=== PATIENT | female | born 1960 | race Caucasian/White ===

== ENCOUNTER 2016-11-04 16:46 | Emergency (ER) | payer OTHER ==
[~2016-11-04] VITALS: Ht 157.4 cm; Wt 119.7 kg
[~2016-11-04 16:46] MED LIST: ACETAMINOPHEN PO; ACTEMRA20 MG/ML IV; ADVAIR 100/501 E1 INH; ADVAIR 250/501 EA INH; ADVAIR 500/501 E1 INH; AFRIN SINUS 1515 ML NS; ALBUTEROL2.5 MG/0.5 INH; ALPRAZOLAM2 MG PO; AMOXICILLIN500 MG PO; ASPIRIN FOR CHI81 MG PO; ASPIRIN LOW DOS81 MG PO; ATARAX25 MG PO; AVELOX400 MG PO; BACTRIM DS 8001 TA1 PO; BENADRYL25 MG PO; BUPROPION HCL75 MG PO; CARAFATE1 G1 PO; CEFTIN250 MG PO; CLARITIN10 MG PO; CLEOCIN150 MG PO; COMBIVENT RESPIM4 GM INH; COMBIVENT1 ARO IH; Carafate1 GM PO; DELTASONE20 MG PO; DIAZEPAM10 MG PO; DILAUDID4 MG PO; DUONEB 3 MG/3 ML3 M1 INH; FLAGYL250 MG PO; FLEXERIL10 MG PO; FLUTICASON0.05 MG/A1 NAS; FOLIC ACID1 MG PO; FUROSEMIDE10 MG/ML PO; FUROSEMIDE20 MG PO; HUMIRA40 MG/0.1 SC; HYDROCODONE BIT1 T11 PO; HYDROCODONE PO; HYDROMORPHONE HY4 MG PO; K-Dur 20MEQ20 MEQ PO; KEFLEX500 MG PO; LASIX20 MG PO; LASIX40 MG PO; LIDEX 0.05% CRE15 GM T; MEDROL DOSEPAK4 MG PO; MELOXICAM15 MG PO; METFORMIN HYDR500 M1 PO; METFORMIN500 MG PO; METHOTREXATE2.5 M1 PO; MOTRIN600 MG PO; MOTRIN800 MG PO; MYCELEX TROCHE10 MG PO; NASACORT55 MCG/ACT NS; NATURE'S BLEND F1 MG PO; NEXIUM40 MG PO; NICODERM21 MG/24 H TD; NO MED LIST; OMEPRAZOLE40 MG PO; ORENCIA250 MG IV; POTASSIUM CHLO20 ME1 PO; POTASSIUM CHLO20 ME4 PO; PREDNICOT20 MG PO; PREDNISONE10 MG PO; PREDNISONE20 MG PO; PRILOSEC20 MG PO; PRISTIQ100 MG PO; PROTONIX40 MG PO; REQUIP0.5 MG PO; ROCEPHIN1 GM/50 M1 IV; SEPTRA DS 800 M1 TAB PO; SINGULAIR10 MG PO; TOBRADEX 0.1%-0.5 ML OPH; TOPAMAX15 MG PO; TOPAMAX25 MG PO; TOPIRAMATE100 MG PO; TRAMADOL HCL50 MG PO; ULTRAM50 MG PO; VALIUM10 MG PO; VALIUM2 MG PO; VENTOLIN 02.5 MG/3 M INH; VIBRAMYCIN100 MG PO; VICO75300 PO; VICODIN 500 MG-1 TAB PO; VOLTAREN50 M1 PO; WELLBUTRIN75 MG PO; X; XANAX0.5 MG PO; XELJANZ5 M1 PO; ZANTAC 150150 MG PO; ZANTAC150 MG PO; ZITHROMAX Z PA250 MG PO; ZITHROMAX250 MG PO; ZOCOR20 MG PO; ZOCOR5 MG PO
[2016-11-04] MEDS ORDERED: BACTRIM DS 8001 TA1 PO (18:12)
[2016-12-06] MEDS ORDERED: PROTONIX40 MG PO (22:14)
[2016-12-06] MEDS ORDERED: VICODIN HP 10-1 EACH PO (22:43)
[2016-12-06] MEDS ORDERED: REQUIP0.5 MG PO (23:44)
[2016-12-07] MEDS ORDERED: VITAMIN D5000 UNIT PO (12:11)
[2016-12-07] MEDS ORDERED: VITAMIN B125000 MC1 PO (12:11)
[2016-12-07] MEDS ORDERED: LISINOPRIL10 M1 PO (12:11)
== END 2016-11-04 18:19 | disposition home or self-care (01) ==
LOC: ED 16:46
DX: L24.5 Irritant contact dermatitis due to other chemical products (principal); I99.8 Other disorder of circulatory system; K21.9 Gastro-esophageal reflux disease without esophagitis; Z91.041 Radiographic dye allergy status; Z88.1 Allergy status to other antibiotic agents; Z88.8 Allergy status to other drugs, medicaments and biological substances; Z88.6 Allergy status to analgesic agent; Z79.899 Other long term (current) drug therapy

== ENCOUNTER 2017-01-15 17:53 | Emergency (ER) | payer OTHER ==
[~2017-01-15] VITALS: Wt 113.4 kg
[~2017-01-15 17:53] MED LIST changes: +LISINOPRIL10 M1 PO; +VICODIN HP 10-1 EACH PO; +VITAMIN B125000 MC1 PO; +VITAMIN D5000 UNIT PO
[2017-01-15] MEDS ORDERED: MEDROL DOSEPAK4 MG PO (20:41)
[2017-01-15] MEDS ORDERED: HYDROCODONE BIT1 T11 PO (20:41)
== END 2017-01-15 21:00 | disposition home or self-care (01) ==
LOC: ED 17:53
DX: M25.512 Pain in left shoulder (principal); Z87.891 Personal history of nicotine dependence; Z90.49 Acquired absence of other specified parts of digestive tract; Z88.1 Allergy status to other antibiotic agents; Z88.6 Allergy status to analgesic agent; Z88.8 Allergy status to other drugs, medicaments and biological substances; Z79.899 Other long term (current) drug therapy

== ENCOUNTER → 2017-05-19 | Outpatient (CLI) | payer OTHER | END | disposition home or self-care (01) | LOC: MAMMO 11:58 | DX: Z12.31 Encounter for screening mammogram for malignant neoplasm of breast (principal) ==

== ENCOUNTER 2017-06-08 10:46 | Emergency (ER) | payer OTHER ==
[~2017-06-08] VITALS: Ht 157.4 cm; Wt 113.4 kg
[2017-06-08] MEDS ORDERED: NYSTATIN CREAM15 GM T (11:20)
== END 2017-06-08 11:37 | disposition home or self-care (01) ==
LOC: ED 10:46
DX: L30.8 Other specified dermatitis (principal); Z91.040 Latex allergy status; Z88.1 Allergy status to other antibiotic agents; Z88.6 Allergy status to analgesic agent; Z88.8 Allergy status to other drugs, medicaments and biological substances; Z79.899 Other long term (current) drug therapy; Z87.891 Personal history of nicotine dependence

== ENCOUNTER 2017-06-16 10:18 | Emergency (ER) | payer OTHER ==
[~2017-06-16 10:18] MED LIST changes: +NYSTATIN CREAM15 GM T
[2017-06-16] MEDS ORDERED: NEURONTIN100 MG PO (11:22)
== END 2017-06-16 12:15 | disposition home or self-care (01) ==
LOC: ED 10:18
DX: M79.661 Pain in right lower leg (principal); M06.9 Rheumatoid arthritis, unspecified; E11.9 Type 2 diabetes mellitus without complications; Z86.718 Personal history of other venous thrombosis and embolism; Z87.891 Personal history of nicotine dependence; Z79.899 Other long term (current) drug therapy; Z91.041 Radiographic dye allergy status; Z88.6 Allergy status to analgesic agent; Z88.8 Allergy status to other drugs, medicaments and biological substances; Z88.1 Allergy status to other antibiotic agents

== ENCOUNTER 2017-07-10 18:46 | Emergency (ER) | payer OTHER ==
[~2017-07-10] VITALS: Ht 157.4 cm; Wt 113.4 kg
[~2017-07-10 18:46] MED LIST changes: +NEURONTIN100 MG PO
== END 2017-07-10 21:38 | disposition home or self-care (01) ==
LOC: ED 18:46
DX: T85.898A Other specified complication of other internal prosthetic devices, implants and grafts, initial encounter (principal); I10 Essential (primary) hypertension; K21.9 Gastro-esophageal reflux disease without esophagitis; J44.9 Chronic obstructive pulmonary disease, unspecified; E78.00 Pure hypercholesterolemia, unspecified; M06.9 Rheumatoid arthritis, unspecified; E11.65 Type 2 diabetes mellitus with hyperglycemia; Z79.4 Long term (current) use of insulin; Z79.899 Other long term (current) drug therapy; Z91.041 Radiographic dye allergy status; Z88.1 Allergy status to other antibiotic agents; Z87.891 Personal history of nicotine dependence; Z88.6 Allergy status to analgesic agent; Z88.8 Allergy status to other drugs, medicaments and biological substances

== ENCOUNTER → 2017-07-22 | Outpatient (CLI) | payer OTHER ==
--- NOTE | 2017-07-22 13:50 | NUR ---
CLIENT AMBULATORY TO TREATMENT AREA FOR PORT FLUSH. PORT WAS PREPPED X 2 AND ACCESSED USING ASEPTIC TECHNIQUE. BRISK BLOOD RETURN NOTED. PORT WAS FLUSHED WITH SALINE FOLLOWED BY HEPARIN. NEEDLE WAS WITHDRAWN. BANDAID TO SITE. NO BLEEDING SEEN. CLIENT THEN AMBULATED FROM TREATMENT AREA IN STABLE CONDITION
== END | disposition home or self-care (01) ==
LOC: MEDIPORT 13:30
DX: Z45.2 Encounter for adjustment and management of vascular access device (principal)

== ENCOUNTER → 2017-08-19 | Outpatient (CLI) | payer OTHER ==
--- NOTE | 2017-08-19 09:44 | NUR ---
CLIENT AMBULATORY TO TREATMENT AREA FOR PORT FLUSH. PORT WAS PREPPED X 2 AND ACCESSED USING ASEPTIC TECHNIQUE. BRISK BLOOD RETURN NOTED. PORT WAS FLUSHED WITH SALINE FOLLOWED BY NEPARIN. NEEDLE WAS WITHDRAWN. NO BLEEDING WAS SEEN. CLIENT THEN AMBULATED FROM TREATMENT AREA IN STABLE CONDITION
== END | disposition home or self-care (01) ==
LOC: MEDIPORT 01:29
DX: Z45.2 Encounter for adjustment and management of vascular access device (principal)

== ENCOUNTER 2017-10-25 17:22 | Inpatient (IN) | payer OTHER ==
[~2017-10-25] VITALS: Ht 157.5 cm; Wt 110.9 kg
[2017-10-25 17:23] VITALS: BP 135/84
[2017-10-25 18:04] LABS: BILIRUBIN NEGATIVE (NEGATIVE); BLOOD TRACE-INTACT (NEGATIVE); CLARITY CLEAR (CLEAR); COLOR YELLOW (YELLOW); GLUCOSE NEGATIVE (NEGATIVE); KETONE NEGATIVE (NEGATIVE); LEUKO ESTERASE NEGATIVE (NEGATIVE); NITRITE NEGATIVE (NEGATIVE); PH 5.5 (5.0-9.0); SPECIFIC GRAVITY <= 1.005 (1.005-1.030); UROBILINOGEN 0.2 E.U./dl (0.2-1.0)
[2017-10-25 18:04] LABS: HEMATOCRIT 34.9 % (37.0-47.0); HEMOGLOBIN 11.6 g/dl (12.0-16.0); MEAN CELL VOLUME 92.1 fl (81.0-99.0); MEAN CORPUSCULAR HGB 30.6 pg (27.0-31.0); MEAN CORPUSCULAR HGB CONC 33.2 g/dl (33.0-37.0); MEAN PLATELET VOLUME 8.9 fl (9.6-12.3); PLATELET COUNT AUTOMATED 344 10*3/uL (130-400); RED BLOOD COUNT 3.79 10*6/uL (4.10-5.10); RED CELL DISTRI WIDTH 16.9 % (0-14.5); WHITE BLOOD COUNT 15.8 10*3/uL (4.8-10.8)
[2017-10-25 18:21] LABS: ACT PARTIAL THROMBO TIME 29.9 SECONDS (20.8-31.5); INTERNATIONAL NORM RATIO 0.9 (2.0-3.5)
[2017-10-25 18:22] LABS: ALKALINE PHOSPHATASE 82 U/L (45-117); BUN 14 mg/dl (7-24); CHLORIDE 103 mmol/L (98-107); LIPASE 89 U/L (73-393); POTASSIUM 3.6 mmol/L (3.5-5.1); SGOT/AST 16 IU/L (3-35); SGPT/ALT 18 U/L (12-78); SODIUM 138 mmol/L (136-145); TOTAL PROTEIN 6.7 gm/dL (6.4-8.2)
[2017-10-25 18:25] LABS: BACTERIA TRACE
[2017-10-25 18:29] LABS: ATYPICAL LYMPHS 1 % (0-0); PLATELET SUFFICIENCY NORMAL (NORMAL); TOTAL CELLS COUNTED 100 #CELLS
[2017-10-25 19:52] VITALS: BP 136/86
[2017-10-25 21:58] VITALS: BP 127/80
[2017-10-25 22:04] VITALS: BP 127/80; BP 132/78
[2017-10-25 22:25] VITALS: BP 116/66
[2017-10-25] MEDS ORDERED: METHOTREXATE2.5 M1 PO ×2 (23:46→23:47)
[2017-10-26] VITALS: BP 116/66
[2017-10-26 04:00] VITALS: BP 101/65
[2017-10-26 07:08] LABS: BASO % 0.3 % (0.0-1.0); EOS # 0.1 10*3/uL (0.0-0.4); EOS % 1.5 % (1.0-4.0); HEMATOCRIT 30.9 % (37.0-47.0); HEMOGLOBIN 9.9 g/dl (12.0-16.0); LYMPH # 0.7 10*3/uL (1.3-4.4); LYMPH % 9.4 % (27.0-41.0); MEAN CELL VOLUME 94.5 fl (81.0-99.0); MEAN CORPUSCULAR HGB 30.3 pg (27.0-31.0); MEAN PLATELET VOLUME 8.8 fl (9.6-12.3); MONO # 0.3 10*3/uL (0.1-1.0); NEUT # 6.3 10*3/uL (2.3-7.9); NEUT % 84.4 % (47.0-73.0); PLATELET COUNT AUTOMATED 298 10*3/uL (130-400); RED BLOOD COUNT 3.27 10*6/uL (4.10-5.10); WHITE BLOOD COUNT 7.5 10*3/uL (4.8-10.8)
[2017-10-26 07:38] LABS: ALBUMIN 2.4 gm/dl (3.1-4.5); BUN 13 mg/dl (7-24); CHLORIDE 108 mmol/L (98-107); CHOLESTEROL 135 mg/dL (<200); HDL CHOLESTEROL 66 mg/dl (40-60); LDL CHOLESTEROL 60 mg/dL (9-159); PHOSPHOROUS 3.2 mg/dL (2.5-4.9); POTASSIUM 3.7 mmol/L (3.5-5.1); SGOT/AST 7 IU/L (3-35); SGPT/ALT 14 U/L (12-78); SODIUM 142 mmol/L (136-145); TOTAL PROTEIN 5.8 gm/dL (6.4-8.2); TRIGLYCERIDES 44 mg/dl (<150); VLDL CHOLESTEROL 9 mg/dL (6-40)
[2017-10-26 07:45] LABS: ACT PARTIAL THROMBO TIME 27.1 SECONDS (20.8-31.5); ALKALINE PHOSPHATASE 67 U/L (45-117)
[2017-10-26 08:00] VITALS: BP 112/72
[2017-10-26 08:32] LABS: VITAMIN D, 25-HYDROXY 45.7 ng/mL (30-100)
[2017-10-26 12:00] VITALS: BP 118/48
[2017-10-26 16:00] VITALS: BP 96/54
[2017-10-26 20:00] VITALS: BP 117/45
[2017-10-27] VITALS: BP 115/75
[2017-10-27 06:29] LABS: BUN 11 mg/dl (7-24); CHLORIDE 111 mmol/L (98-107); CREATININE 0.66 mg/dL (0.55-1.02); POTASSIUM 4.4 mmol/L (3.5-5.1); SODIUM 145 mmol/L (136-145)
[2017-10-27 06:34] LABS: BASO % 0.4 % (0.0-1.0); EOS # 0.2 10*3/uL (0.0-0.4); EOS % 3.6 % (1.0-4.0); HEMATOCRIT 31.1 % (37.0-47.0); HEMOGLOBIN 9.9 g/dl (12.0-16.0); LYMPH # 0.9 10*3/uL (1.3-4.4); LYMPH % 16.5 % (27.0-41.0); MEAN CORPUSCULAR HGB 30.6 pg (27.0-31.0); MEAN CORPUSCULAR HGB CONC 31.8 g/dl (33.0-37.0); MEAN PLATELET VOLUME 9.3 fl (9.6-12.3); MONO # 0.4 10*3/uL (0.1-1.0); MONO % 7.9 % (3.0-9.0); NEUT # 3.7 10*3/uL (2.3-7.9); NEUT % 71.4 % (47.0-73.0); PLATELET COUNT AUTOMATED 311 10*3/uL (130-400); RED BLOOD COUNT 3.24 10*6/uL (4.10-5.10); RED CELL DISTRI WIDTH 17.1 % (0-14.5); WHITE BLOOD COUNT 5.2 10*3/uL (4.8-10.8)
[2017-10-27 08:00] VITALS: BP 114/53
[2017-10-27 12:00] VITALS: BP 154/50
[2017-10-27 16:00] VITALS: BP 127/85
[2017-10-27 20:00] VITALS: BP 117/96
[2017-10-28] VITALS: BP 117/67
[2017-10-28 08:00] VITALS: BP 136/74
[2017-10-28 12:00] VITALS: BP 124/62
[2017-10-28] MEDS ORDERED: AUGMENTIN 875-875 MG PO (13:25)
[2017-10-28] MEDS ORDERED: DOXYCYCLINE100 M3 PO (13:25)
[2017-10-28 16:00] VITALS: BP 111/74
== END 2017-10-28 19:33 | disposition home or self-care (01) | DRG 871 ==
LOC: ED 17:22 → 4E 21:17 → EDHOLD 21:17 → 4E 21:23
PROVIDERS: Hospitalist; Nurse Practitioner Family; Student in an Organized Health Care Education/Training Program
DX: A41.9 Sepsis, unspecified organism (principal); E43 Unspecified severe protein-calorie malnutrition; C76.0 Malignant neoplasm of head, face and neck; E11.65 Type 2 diabetes mellitus with hyperglycemia; E66.01 Morbid (severe) obesity due to excess calories; D64.9 Anemia, unspecified; L03.211 Cellulitis of face; Z68.41 Body mass index [BMI] 40.0-44.9, adult; G25.81 Restless legs syndrome; K21.9 Gastro-esophageal reflux disease without esophagitis; J44.9 Chronic obstructive pulmonary disease, unspecified; Z96.651 Presence of right artificial knee joint; E78.00 Pure hypercholesterolemia, unspecified; M06.9 Rheumatoid arthritis, unspecified; Z91.041 Radiographic dye allergy status; Z88.5 Allergy status to narcotic agent; Z91.048 Other nonmedicinal substance allergy status; Z91.09 Other allergy status, other than to drugs and biological substances; Z79.4 Long term (current) use of insulin; Z98.891 History of uterine scar from previous surgery; Z90.49 Acquired absence of other specified parts of digestive tract; Z98.51 Tubal ligation status; Z82.49 Family history of ischemic heart disease and other diseases of the circulatory system; Z83.3 Family history of diabetes mellitus; Z87.891 Personal history of nicotine dependence; Z92.21 Personal history of antineoplastic chemotherapy

== ENCOUNTER 2017-11-14 17:09 | Inpatient (IN) | payer OTHER ==
[2017-11-14] VITALS (9 sets, daily range): BP systolic 97–135; BP diastolic 41–82
[~2017-11-14] VITALS: Ht 157.4 cm; Wt 107.7 kg
--- NOTE | ~2017-11-14 | PR ---
[place], [place] PROGRESS NOTE NAME: KIP SHARMA UNIT #: [id number] ROOM: 426 DOCTOR: MELI POSEY DO BIRTHDATE: [birth year] DOS: 11/20/2017 SUBJECTIVE: The patient is seen and examined at bedside. The patient reports that Atarax yesterday was effective. Continues to mild irritation of her face. The patient denies shortness of breath, cough, fever, chills, nausea, vomiting. The patient had a healthy appetite, was noted to be eating moderate of breakfast at the time of interview. Cultures remain negative, positive for flu. OBJECTIVE: VITAL SIGNS: Temperature 97.8, pulse is 64, respirations 20, blood pressure 178/92, pulse ox 98% on trach mask. GENERAL: The patient is awake, alert and oriented x 3, no acute distress. HEENT: Eyes are clear. No injection. Nares are patent. NECK: Membranes are moist. SKIN: Mild dermatitis bilaterally around the face. NECK: Supple, nontender, trach in place. No evidence of infection. CARDIOVASCULAR: Regular rate and rhythm. S1, S2 appreciated. PULMONARY: Clear to auscultation. No wheezes, rales or rhonchi. ABDOMEN: Soft, nontender with positive bowel sounds. NEUROLOGICAL: Negative for focal deficits. ASSESSMENT: 1. Suspected allergy, possibly secondary to medication. Atarax was effective, continue Atarax outpatient. 2. Acute tracheobronchitis. 3. Tracheostomy and bronchial asthma. 4. Rheumatoid arthritis. 5. Sleep apnea. 6. Type 2 diabetes. PLAN: The patient is medically cleared for discharge. Continue Tamiflu, continue antibiotics, continue steroid taper. Continue Atarax upon discharge. The patient may follow outpatient with Dr. Davalos as directed. MELI POSEY DO [place], [place] PROGRESS NOTE NAME: KIP SHARMA UNIT #: [id number] ROOM: 426 DOCTOR: MELI POSEY DO BIRTHDATE: [birth year] ISSAC DAVALOS MD CM:PNSADIA [id number] MELI POSEY DO 11/20/17 1439 interface
--- NOTE | ~2017-11-14 | PR ---
[place], [place] PROGRESS NOTE NAME: KIP SHARMA [facility] #: [id number] UNIT #: [id number] ROOM: 426 DOCTOR: ANOOP CONTRERAS MDISSAC BIRTHDATE: [birth year] DOS: 11/19/2017 SUBJECTIVE: The patient was independently seen and examined with knmb-zm-vtxm encounter. History was confirmed. Physical examination performed. The assessment and the management of today's visit were personally completed. Note done by the medical front desk coordinator was approved as well. The patient has been noted at this time without any acute respiratory changes. Cough has been noted mild intermittently. The patient was complaining of cellulitis of the face. Denies symptoms of chest pain or abdominal pain. Denies any postnasal drainage or headache. She denies symptoms of acute shortness of breath. Tracheostomy remains in place, which is chronic. The oxygen supplementation provided with MANGO mask. OBJECTIVE: VITAL SIGNS: Reviewed was noted as respiratory rate of 22. Other vital signs were normal. Pulse oxygen saturation was noted as 96% on 35% MANGO mask. HEENT: Head was atraumatic. Eye nonicterus. Mild redness of the cheek was noted. I am not sure if this will be considered as a cellulitis at this time. LUNGS: The patient was noted without any wheezing or crackles. ABDOMEN: Soft and chronic obesity. Bowel sounds present. EXTREMITIES: Without any acute edema. VISIBLE SKIN: Besides the redness of the skin as stated was essentially noted as normal. EXTREMITIES: The patient noted without any edema. MUSCULOSKELETAL: Without any acute deformities. NECK: Noted tracheostomy in place with chronic changes for surgery. LABORATORY DATA: The BMP today, glucose 154, remaining BMP was essentially normal. IMPRESSION: 1. Possibility of allergy maybe medication with mild redness and the hives of the cheek noted. There was no severe allergic reaction visible. There were no rashes noted in the rest of the part of the body. 2. Acute tracheobronchitis and influenza A infection as well, which has been treated with the antibiotics and with antiviral therapy. 3. History of permanent tracheostomy and bronchial asthma. 4. History of longstanding rheumatoid arthritis. 5. Obstructive sleep apnea disorder. 6. Type 2 diabetes mellitus. PLAN OF MANAGEMENT: At this time, the patient will be continued on her previous treatment without any changes need to be done. She will be started on Atarax 25 mg p.o. t.i.d. for management of current skin rash, which may be allergic. Other plan of management to be previously continued including oxygen, bronchodilators and other medication as ordered. [place], [place] PROGRESS NOTE NAME: KIP SHARMA UNIT #: [id number] ROOM: 426 DOCTOR: ISSAC FERNANDEZ MD BIRTHDATE: [birth year] ISSAC DAVALOS MD CM:PNSADIA [id number] ISSAC CONTRERAS MD 11/20/17 0246 interface
--- NOTE | ~2017-11-14 | CON ---
[place], [place] REPORT OF CONSULTATION NAME: KIP SHARMA [facility] #: [id number] UNIT #: [id number] ROOM: 426 DOCTOR: ISSAC FERNANDEZ MD BIRTHDATE: [birth year] DOS: 11/18/2017 PULMONARY CONSULTATION, EVALUATION, AND MANAGEMENT CONSULTATION REQUESTED BY: Hospitalist Services. REASON FOR CONSULTATION: For assessment of the COPD for the patient and other respiratory symptoms of cough. HISTORY OF PRESENT ILLNESS: This is a 57-year-old white female patient who has been known to me with past history of cancer of the epiglottis, has required three different surgeries. The patient has recurrence of the cancer in the throat for this patient with permanent tracheotomy of the patient. The patient currently has a plastic tube in place after the recent surgery. The wound has not been noted to completely heal of the patient on the side with the suture dehiscence for the patient, can require packing on the right side of the throat. The patient has been admitted to the hospital on 11/14/2017 as she reported symptoms of having pain in the right side of the chest for 3 days. The patient has been described to the patient continuously qmdyblrt-iu-lgcogr, but currently resolving. She denies any symptoms of hemoptysis. Cough has been noted mild for this patient with some sputum expectoration with deeper hard cough. The sputum color was described to be white to mildly yellow at time. She denies any symptoms of hemoptysis. The patient has not been noted any symptoms of excessive shortness of breath at this time. Mild wheezing of he patient described at time. The patient came into the Emergency Room and has been admitted to the hospital, the patient noted influenza A positive status. She has been receiving antiviral therapy. Current symptoms of the patient has been noted with gradual improvement for the patient in the last 48 hours. REVIEW OF SYSTEMS: CONSTITUTIONAL: She was noted symptoms of some fever, but no chills of the patient on admission, which has resolved. EYES: Denies any burning, dryness, or redness. EARS, NOSE, AND THROAT: Denies any symptoms of sore throat, earache for the patient nasal discharge. Permanent tracheostomy of the patient was noted. CARDIOVASCULAR: Denies angina pain, edema, pain of the lower extremities, or palpitation. GASTROINTESTINAL: No dysphagia, nausea, vomiting, diarrhea, abdominal pain, hematemesis, melena, or hematochezia. SKIN: Denies lesions or rashes. MUSCULOSKELETAL: The patient was noted without any acute deformities. The remaining systems were reviewed for the patient they were noted all negative. PAST MEDICAL HISTORY: Noted with 1. Yylh-nl-yanfyxin uncomplicated persistent bronchial asthma. 2. Chronic severe obesity. 3. Obstructive sleep apnea disorder. 4. Generalized anxiety disorder as well. 5. History of type 2 diabetes mellitus as well. [place], [place] REPORT OF CONSULTATION NAME: KIP SHARMA UNIT #: [id number] ROOM: 426 DOCTOR: ANOOP CONTRERAS MD,[facility] BIRTHDATE: [birth year] 6. History of rheumatoid arthritis. 7. Degenerative arthritis. 8. Restless leg syndrome. 9. Migraine headache. 10. Chronic obesity. 11. Hypercholesterolemia. 12. Essential hypertension. PAST SURGICAL HISTORY: 1. Laparoscopic cholecystectomy. 2. in 1997. 3. Right knee arthroscopy. 4. Tonsillectomy and adenoidectomy. 5. Vocal cord removal. 6. Therapeutic bronchoscopy. 7. Radical dissection of the neck of the patient with a laryngectomy for the epiglottic cancer. Two additional surgeries were done in [facility] in [place], [place]. SOCIAL HISTORY: The patient is , has one child. Denies history of alcohol use or illicit drug use. Tobacco use noted from age of [age]-hurlv-euq, half a pack of cigarettes per day until 11/2013. FAMILY HISTORY: The patient's father of complications at the age of 8708-mgfgk-gos from diabetes mellitus. Mother at 51-cudjv-qol, complication related to acute myocardial infarction. MEDICATIONS: The medications, which were recorded for the patient on home were noted as use of methotrexate, vitamin D, diazepam, Advair, folic acid, Vicodin, hydromorphone, DuoNeb, lisinopril, Meloxicam, metformin, methotrexate, montelukast, Protonix, potassium chloride, ranitidine, Requip and simvastatin. DRUG ALLERGIES: Noted 1. IVP DYE. 2. Humira. 3. Orencia. 4. Naproxen. 5. Clindamycin. 6. Iodine. 7. OxyContin. 8. Levaquin. PHYSICAL EXAMINATION: GENERAL: This is a 57-year-old female who has been noted currently awake and alert for the patient without any distress. Able to speak with the patient with current tracheostomy, but closing the tracheotomy hole. VITAL SIGNS: Height for the patient noted 5 feet 2 inches, weight of 200 pounds for this patient. BMI 43. The vital signs of the patient showed the temperature noted 101.8 degrees Fahrenheit. The patient previously, currently noted afebrile in the last 48 hours, respiratory rate 18-20, heart rate of [place], [place] REPORT OF CONSULTATION NAME: KIP SHARMA UNIT #: [id number] ROOM: 426 DOCTOR: ANOOP CONTRERAS MD,ISSAC BIRTHDATE: [birth year] 77-59, and blood pressure 156/87-121/72. Pulse oxygen saturation on mask 91%-96% saturation. HEENT: Examination shows tracheostomy in place. Head was atraumatic. Eyes nonicterus. Oral mucosa noted moist. NECK: Supple. CARDIOVASCULAR: S1, S2 audible. LUNGS: The patient was noted decreased breath sounds with occasional wheezing, no crackles. ABDOMEN: Soft. Moderate obesity. Bowel sounds present. EXTREMITIES: Noted with chronic obesity. VISIBLE SKIN: No lesions or rashes. MUSCULOSKELETAL: Without any deformities. CENTRAL NERVOUS SYSTEM: Cranial nerves 2-12 intact. No focal deficit. LABORATORY DATA: CBC of 11/15/2017, WBC count 3.7, hemoglobin 11.5, hematocrit 34.9, and platelet count was normal. The CBC on 11/14/2017 for the patient noted essentially normal. The CMP of the patient of 11/14/2017, normal BUN and creatinine, sodium 133. CBC of the patient that was done today, normal WBC count, hemoglobin 10.1, hematocrit 30.4, and platelet count was normal. BMP this morning was noted, glucose 173, otherwise normal. Review of the radiology data for this patient, pertinent to the chest with the patient was personally reviewed from the PACS images of this hospitalization. Chest x-ray of the patient done on 11/14/2017, one view for the patient without any acute pulmonary infiltration. IMPRESSION: The patient has been noted with musculoskeletal chest pain acute, influenza A infection of the patient currently with acute bronchitis and some exacerbation of bronchial asthma. Responding to current treatment effectively. 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 History of cancer of epiglottis of the patient, status post surgery. Other intervention has been continued under the care of [facility], ENT surgeon. PLAN OF MANAGEMENT: Continue antibiotic therapy for 5 days for influenza infection, bronchodilators, and corticosteroid use. Consider possible discharge home in the morning. The patient remains afebrile with continued improvement in symptoms continued. Supportive care, other therapy, plan of management, usual care, and treatment plan. DVT prophylaxis. [place], [place] REPORT OF CONSULTATION NAME: KIP SHARMA Xochitl UNIT #: [id number] ROOM: 426 DOCTOR: ISSAC FERNANDEZ MD BIRTHDATE: [birth year] ISSAC DAVALOS MD CM:CONSTR:REPORT OF CONSULTATION 1852 11/19/17 9550 interface
--- NOTE | ~2017-11-14 | PR ---
[place], [place] PROGRESS NOTE NAME: KIP SHARMA [facility] #: [id number] UNIT #: [id number] ROOM: 426 DOCTOR: ANOOP CONTRERAS MD,ISSAC BIRTHDATE: [birth year] DOS: 11/20/2017 PULMONARY ADDENDUM PROGRESS NOTE SUBJECTIVE: The patient was independently seen and examined today. The history was confirmed. Physical examination performed. The assessment and management for today's note were personally completed. She has been showing improvement in the respiratory symptom with the coughing, chest congestion noted with some rash of the face. She was started on broad spectrum intravenous antibiotics by the primary care team. OBJECTIVE: VITAL SIGNS: Review of the vital signs for the patient essentially noted as blood pressure 151/75-178/92, respiratory rate of 18, heart rate 74, temperature was normal. HEENT: Some redness of the skin was noted. NECK: Supple. Tracheostomy in place. CARDIOVASCULAR: S1, S2 audible. LUNGS: Noted clear. ABDOMEN: Soft, nontender. IMPRESSION AND PLAN: The patient with resolving influenza A infection, acute bronchitis, exacerbation of bronchial asthma, which are improving gradually. Edema of the face at this time with possible allergies. The patient does not seem to be consistent with cellulitis. The patient will be given Solu-Medrol or prednisone 40 mg daily. Continuation of the antihistamine. Discharge planning as per primary care team. ISSAC DAVALOS MD CM:PNTRANS [id number] ISSAC CONTRERAS MD 11/21/17 0251 interface
--- NOTE | ~2017-11-14 | EKG ---
[place], [place] ELECTROCARDIOGRAM REPORT NAME: KIP SHARMA UNIT #: [id number] ROOM: 426 DOCTOR: EVETTE BUTT,SHAISTA BIRTHDATE: [birth year] DOS: 11/14/2017 TIME: 2302 hours. IMPRESSION: 1. Ectopic atrial rhythm. 2. Short ID interval. 3. Normal QT interval. SHAISTA ALAS MD CM:EKGRPT:ELECTROCARDIOGRAM REPORT 1416 1706 SHAISTA ALAS MD
--- NOTE | ~2017-11-14 | PR ---
[place], [place] PROGRESS NOTE NAME: KIP SHARMA UNIT #: [id number] ROOM: 426 DOCTOR: MELI POSEY DO BIRTHDATE: [birth year] DOS: 11/19/2017 SUBJECTIVE: The patient was seen and examined at bedside. The patient was sitting upright. The patient complains of what she describes as a rash/cellulitis developing around her mouth and her face secondary to the BiPAP machine. The patient denies any itchiness or any pain. She reports that her breathing is stable and has no new complaints regarding her respiratory symptoms. OBJECTIVE: VITAL SIGNS: Temperature 98.5, pulse is 69, respirations 24, blood pressure 137/84, pulse ox is 93% on a trachea mask. GENERAL APPEARANCE: The patient awake, alert and oriented, in mild distress. HEENT: Eyes are clear. No injection. Nares are patent. Mucous membranes are moist. Mild erythema around the distribution bilaterally. NECK: Supple, nontender, trach in place. CARDIOVASCULAR: Regular rate and rhythm, no murmurs, gallops or rubs. PULMONARY: Clear to auscultation. No rales, wheezes, or rhonchi. ABDOMEN: Soft, nontender with positive bowel signs. EXTREMITIES: Clear of edema, erythema, clubbing, or cyanosis. NEUROLOGIC: Negative for focal deficits. LABORATORY DATA: Chemistries from this morning were reviewed and were grossly negative. Glucose 154. Micro, positive for flu A. IMPRESSION: 1. Flu A. 2. Sputum production secondary to longstanding rheumatoid arthritis on methotrexate. 3. History of throat cancer status post trach. TREATMENT PLAN: Continue with Tamiflu. The patient is stabilizing respiratory ramos. We will start Atarax 25 three times a day for resolution of allergic reaction on her face. If patient continues to improve, anticipate discharge tomorrow. MELI POSEY DO [place], [place] PROGRESS NOTE NAME: KIP SHARMA UNIT #: [id number] ROOM: 426 DOCTOR: MELI POSEY DO BIRTHDATE: [birth year] ISSAC DAVALOS MD CM:PNSADIA [id number] MELI POSEY DO 11/19/17 1325 interface
--- NOTE | ~2017-11-14 | EKG ---
[place], [place] ELECTROCARDIOGRAM REPORT NAME: KIP SHARMA UNIT #: [id number] ROOM: 426 DOCTOR: EVETTE BUTT,SHAISTA BIRTHDATE: [birth year] DOS: 11/14/2017 TIME: 2252 hours. IMPRESSION: 1. Sinus rhythm. 2. Vaseline artifacts. 3. Normal QT interval. SHAISTA ALAS MD CM:EKGRPT:ELECTROCARDIOGRAM REPORT 1417 1728 SHAISTA ALAS MD
--- NOTE | ~2017-11-14 | EKG ---
[place], [place] ELECTROCARDIOGRAM REPORT NAME: KIP SHARMA UNIT #: [id number] ROOM: 426 DOCTOR: EVETTE BUTT,SHAISTA BIRTHDATE: [birth year] DOS: 11/14/2017 TIME: 1715 hours. IMPRESSION: 1. Sinus rhythm, sinus tachycardia. 2. Supraventricular ectopy. 3. Low voltage in the precordial leads. 4. Nonspecific ST-T changes in the inferior leads. SHAISTA ALAS MD CM:EKGRPT:ELECTROCARDIOGRAM REPORT 1418 1729 SHAISTA ALAS MD
[~2017-11-14 17:09] MED LIST changes: +AUGMENTIN 875-875 MG PO; +DOXYCYCLINE100 M3 PO
[2017-11-14 17:53] LABS: BASO % 0.2 % (0.0-1.0); EOS # 0.1 10*3/uL (0.0-0.4); EOS % 1.3 % (1.0-4.0); HEMATOCRIT 36.7 % (37.0-47.0); HEMOGLOBIN 12.3 g/dl (12.0-16.0); LYMPH # 0.5 10*3/uL (1.3-4.4); LYMPH % 8.1 % (27.0-41.0); MEAN CELL VOLUME 89.7 fl (81.0-99.0); MEAN CORPUSCULAR HGB 30.1 pg (27.0-31.0); MEAN CORPUSCULAR HGB CONC 33.5 g/dl (33.0-37.0); MEAN PLATELET VOLUME 8.7 fl (9.6-12.3); MONO # 0.8 10*3/uL (0.1-1.0); MONO % 12.2 % (3.0-9.0); PLATELET COUNT AUTOMATED 294 10*3/uL (130-400); RED BLOOD COUNT 4.09 10*6/uL (4.10-5.10); WHITE BLOOD COUNT 6.4 10*3/uL (4.8-10.8)
[2017-11-14 18:06] LABS: ACT PARTIAL THROMBO TIME 37.2 SECONDS (20.8-31.5)
[2017-11-14 18:11] LABS: ALBUMIN 2.9 gm/dl (3.1-4.5); ALKALINE PHOSPHATASE 77 U/L (45-117); BUN 14 mg/dl (7-24); CHLORIDE 101 mmol/L (98-107); CREATININE 0.86 mg/dL (0.55-1.02); POTASSIUM 3.8 mmol/L (3.5-5.1); SGOT/AST 20 IU/L (3-35); SGPT/ALT 17 U/L (12-78); SODIUM 133 mmol/L (136-145); TOTAL PROTEIN 6.9 gm/dL (6.4-8.2)
[2017-11-14 18:16] LABS: TROPONIN I < 0.015 ng/ml (<0.045)
[2017-11-15] VITALS: BP 99/68
[2017-11-15 04:00] VITALS: BP 99/64
[2017-11-15 08:00] VITALS: BP 108/66
[2017-11-15 08:01] LABS: BASO % 0.3 % (0.0-1.0); EOS # 0.1 10*3/uL (0.0-0.4); EOS % 1.3 % (1.0-4.0); HEMATOCRIT 34.9 % (37.0-47.0); HEMOGLOBIN 11.5 g/dl (12.0-16.0); LYMPH # 0.8 10*3/uL (1.3-4.4); MEAN CELL VOLUME 90.2 fl (81.0-99.0); MEAN CORPUSCULAR HGB 29.7 pg (27.0-31.0); MONO # 0.5 10*3/uL (0.1-1.0); MONO % 13.7 % (3.0-9.0); NEUT # 2.3 10*3/uL (2.3-7.9); NEUT % 62.4 % (47.0-73.0); PLATELET COUNT AUTOMATED 294 10*3/uL (130-400); RED BLOOD COUNT 3.87 10*6/uL (4.10-5.10); RED CELL DISTRI WIDTH 16.1 % (0-14.5); WHITE BLOOD COUNT 3.7 10*3/uL (4.8-10.8)
[2017-11-15 08:08] LABS: INTERNATIONAL NORM RATIO 0.9 (2.0-3.5)
[2017-11-15 08:24] LABS: ALBUMIN 2.7 gm/dl (3.1-4.5); ALKALINE PHOSPHATASE 69 U/L (45-117); BUN 18 mg/dl (7-24); CHLORIDE 101 mmol/L (98-107); CHOLESTEROL 117 mg/dL (<200); CREATININE 0.97 mg/dL (0.55-1.02); HDL CHOLESTEROL 48 mg/dl (40-60); LDL CHOLESTEROL 57 mg/dL (9-159); PHOSPHOROUS 4.3 mg/dL (2.5-4.9); SGOT/AST 20 IU/L (3-35); SGPT/ALT 15 U/L (12-78); SODIUM 136 mmol/L (136-145); TOTAL PROTEIN 6.7 gm/dL (6.4-8.2); TRIGLYCERIDES 60 mg/dl (<150); VLDL CHOLESTEROL 12 mg/dL (6-40)
[2017-11-15 08:29] LABS: THYROID STIM HORMONE (HS) 0.931 uIU/ml (0.358-4.75)
[2017-11-15] MEDS ORDERED: NATURE'S BLEND F1 MG PO (10:54)
[2017-11-15] MEDS ORDERED: B12,B-12,B 12500 MC1 PO (11:00)
[2017-11-15] MEDS ORDERED: VITAMIN D50000 UNIT PO (11:01)
[2017-11-15] MEDS ORDERED: SINGULAIR10 M1 PO (11:01)
[2017-11-15] MEDS ORDERED: POTASSIUM CHLO20 ME3 PO (11:02)
[2017-11-15] MEDS ORDERED: DIAZEPAM5 MG PO (11:26)
[2017-11-15] MEDS ORDERED: METFORMIN500 MG PO (11:28)
[2017-11-15 12:00] VITALS: BP 131/65
[2017-11-15 16:00] VITALS: BP 131/61
[2017-11-15 20:00] VITALS: BP 132/83
[2017-11-16] VITALS: BP 103/63
[2017-11-16 08:59] VITALS: BP 116/76
[2017-11-16 12:00] VITALS: BP 105/60
[2017-11-16 16:00] VITALS: BP 101/65
[2017-11-16 20:00] VITALS: BP 122/87
[2017-11-17] VITALS: BP 108/52
[2017-11-17 08:00] VITALS: BP 107/90
[2017-11-17 12:00] VITALS: BP 107/90
[2017-11-17] MEDS ORDERED: NEBULIZER DEVI (15:17)
[2017-11-17 16:00] VITALS: BP 121/66
[2017-11-17 20:50] VITALS: BP 123/69
[2017-11-18] VITALS: BP 112/66
[2017-11-18 07:15] LABS: HEMATOCRIT 30.4 % (37.0-47.0); HEMOGLOBIN 10.1 g/dl (12.0-16.0); MEAN CELL VOLUME 91.3 fl (81.0-99.0); MEAN CORPUSCULAR HGB 30.3 pg (27.0-31.0); MEAN CORPUSCULAR HGB CONC 33.2 g/dl (33.0-37.0); MEAN PLATELET VOLUME 9.5 fl (9.6-12.3); PLATELET COUNT AUTOMATED 282 10*3/uL (130-400); RED BLOOD COUNT 3.33 10*6/uL (4.10-5.10); RED CELL DISTRI WIDTH 15.9 % (0-14.5); WHITE BLOOD COUNT 7.3 10*3/uL (4.8-10.8)
[2017-11-18 07:26] LABS: BUN 14 mg/dl (7-24); CHLORIDE 107 mmol/L (98-107); CREATININE 0.58 mg/dL (0.55-1.02); POTASSIUM 4.1 mmol/L (3.5-5.1); SODIUM 140 mmol/L (136-145)
[2017-11-18 07:58] LABS: PLATELET SUFFICIENCY NORMAL (NORMAL); TOTAL CELLS COUNTED 100 #CELLS
[2017-11-18 08:00] VITALS: BP 156/87
[2017-11-18 12:00] VITALS: BP 121/72
[2017-11-18 16:59] VITALS: BP 140/74
[2017-11-18 20:19] VITALS: BP 137/110
[2017-11-18 22:42] VITALS: BP 123/88
[2017-11-19] VITALS: BP 141/79
[2017-11-19 07:31] LABS: BUN 17 mg/dl (7-24); CHLORIDE 109 mmol/L (98-107); POTASSIUM 4.2 mmol/L (3.5-5.1); SODIUM 141 mmol/L (136-145)
[2017-11-19 07:33] LABS: CREATININE 0.62 mg/dL (0.55-1.02)
[2017-11-19 08:00] VITALS: BP 118/77
[2017-11-19 12:00] VITALS: BP 137/84
[2017-11-19] MEDS ORDERED: DULOXETINE HCL30 MG PO (15:17)
[2017-11-19 15:55] VITALS: BP 143/67
[2017-11-19 20:00] VITALS: BP 178/80
[2017-11-20] VITALS: BP 151/75
[2017-11-20 08:00] VITALS: BP 178/92
[2017-11-20] MEDS ORDERED: PREDNISONE10 MG PO (11:37)
[2017-11-20] MEDS ORDERED: DOXYCYCLINE100 M3 PO (11:37)
== END 2017-11-20 13:17 | disposition home or self-care (01) | DRG 193 ==
LOC: ED 17:09 → 4E 20:54
PROVIDERS: Emergency Medicine; Hospitalist; Internal Medicine; Student in an Organized Health Care Education/Training Program
DX: J10.1 Influenza due to other identified influenza virus with other respiratory manifestations (principal); E43 Unspecified severe protein-calorie malnutrition; J96.10 Chronic respiratory failure, unspecified whether with hypoxia or hypercapnia; J44.0 Chronic obstructive pulmonary disease with (acute) lower respiratory infection; Z93.0 Tracheostomy status; E66.01 Morbid (severe) obesity due to excess calories; E11.65 Type 2 diabetes mellitus with hyperglycemia; J45.901 Unspecified asthma with (acute) exacerbation; E87.1 Hypo-osmolality and hyponatremia; Z68.41 Body mass index [BMI] 40.0-44.9, adult; K21.9 Gastro-esophageal reflux disease without esophagitis; M06.9 Rheumatoid arthritis, unspecified; G25.81 Restless legs syndrome; I10 Essential (primary) hypertension; E55.9 Vitamin D deficiency, unspecified; J44.9 Chronic obstructive pulmonary disease, unspecified; Z88.8 Allergy status to other drugs, medicaments and biological substances; G47.33 Obstructive sleep apnea (adult) (pediatric); F41.1 Generalized anxiety disorder; M19.90 Unspecified osteoarthritis, unspecified site; G43.909 Migraine, unspecified, not intractable, without status migrainosus; R07.89 Other chest pain; J20.9 Acute bronchitis, unspecified; Z85.21 Personal history of malignant neoplasm of larynx; Z82.49 Family history of ischemic heart disease and other diseases of the circulatory system; Z87.891 Personal history of nicotine dependence; Z90.49 Acquired absence of other specified parts of digestive tract; Z90.6 Acquired absence of other parts of urinary tract; Z98.51 Tubal ligation status; Z88.1 Allergy status to other antibiotic agents; Z91.041 Radiographic dye allergy status; Z79.899 Other long term (current) drug therapy; Z90.89 Acquired absence of other organs; Z86.14 Personal history of Methicillin resistant Staphylococcus aureus infection; Z83.3 Family history of diabetes mellitus; Z79.84 Long term (current) use of oral hypoglycemic drugs

== ENCOUNTER 2017-12-08 14:30 | Emergency (ER) | payer OTHER ==
[~2017-12-08] VITALS: Ht 157.4 cm; Wt 111.1 kg
[~2017-12-08 14:30] MED LIST changes: +B12,B-12,B 12500 MC1 PO; +DIAZEPAM5 MG PO; +DULOXETINE HCL30 MG PO; +NEBULIZER DEVI; +POTASSIUM CHLO20 ME3 PO; +SINGULAIR10 M1 PO; +VITAMIN D50000 UNIT PO
[2017-12-08] MEDS ORDERED: NEURONTIN100 MG PO (16:36)
== END 2017-12-08 16:58 | disposition home or self-care (01) ==
LOC: ED 14:30
DX: R51 Headache (principal); R19.09 Other intra-abdominal and pelvic swelling, mass and lump; R22.1 Localized swelling, mass and lump, neck; J44.9 Chronic obstructive pulmonary disease, unspecified; K21.9 Gastro-esophageal reflux disease without esophagitis; E66.01 Morbid (severe) obesity due to excess calories; I10 Essential (primary) hypertension; M06.9 Rheumatoid arthritis, unspecified; E11.65 Type 2 diabetes mellitus with hyperglycemia; G25.81 Restless legs syndrome; Z98.890 Other specified postprocedural states; Z90.49 Acquired absence of other specified parts of digestive tract; Z98.51 Tubal ligation status; Z87.891 Personal history of nicotine dependence; Z79.899 Other long term (current) drug therapy; Z91.041 Radiographic dye allergy status; Z88.8 Allergy status to other drugs, medicaments and biological substances; Z88.6 Allergy status to analgesic agent; Z88.1 Allergy status to other antibiotic agents; Z85.118 Personal history of other malignant neoplasm of bronchus and lung

== ENCOUNTER 2017-12-16 18:17 | Emergency (ER) | payer OTHER ==
[~2017-12-16] VITALS: Ht 167.6 cm; Wt 90.7 kg
== END 2017-12-16 20:01 | disposition home or self-care (01) ==
LOC: ED 18:17
DX: T18.2XXA Foreign body in stomach, initial encounter (principal); K59.00 Constipation, unspecified; X58.XXXA Exposure to other specified factors, initial encounter; Y93.89 Activity, other specified; Y92.89 Other specified places as the place of occurrence of the external cause; Y99.8 Other external cause status

== ENCOUNTER 2018-01-04 15:30 | Emergency (ER) | payer OTHER ==
[~2018-01-04] VITALS: Ht 157.4 cm; Wt 113.4 kg
[2018-01-04] MEDS ORDERED: CYMBALTA60 MG PO (15:48)
[2018-01-04] MEDS ORDERED: CYCLOBENZAPRINE10 MG PO (17:59)
== END 2018-01-04 18:42 | disposition home or self-care (01) ==
LOC: ED 15:30
DX: M17.11 Unilateral primary osteoarthritis, right knee (principal); Z87.891 Personal history of nicotine dependence; Z98.51 Tubal ligation status; Z98.890 Other specified postprocedural states; Z90.49 Acquired absence of other specified parts of digestive tract; Z79.899 Other long term (current) drug therapy; Z91.041 Radiographic dye allergy status; Z88.1 Allergy status to other antibiotic agents; Z88.6 Allergy status to analgesic agent; Z88.8 Allergy status to other drugs, medicaments and biological substances

== ENCOUNTER 2018-02-14 12:58 | Emergency (ER) | payer OTHER ==
[~2018-02-14] VITALS: Ht 157.4 cm; Wt 113.4 kg
[~2018-02-14 12:58] MED LIST changes: +CYCLOBENZAPRINE10 MG PO; +CYMBALTA60 MG PO
[2018-02-14 14:13] LABS: BASO % 0.4 % (0.0-1.0); EOS # 0.3 10*3/uL (0.0-0.4); EOS % 3.8 % (1.0-4.0); HEMATOCRIT 34.2 % (37.0-47.0); HEMOGLOBIN 11.2 g/dl (12.0-16.0); LYMPH # 0.6 10*3/uL (1.3-4.4); LYMPH % 8.2 % (27.0-41.0); MEAN CELL VOLUME 92.7 fl (81.0-99.0); MEAN CORPUSCULAR HGB 30.4 pg (27.0-31.0); MEAN CORPUSCULAR HGB CONC 32.7 g/dl (33.0-37.0); MEAN PLATELET VOLUME 8.7 fl (9.6-12.3); MONO # 0.7 10*3/uL (0.1-1.0); MONO % 8.8 % (3.0-9.0); NEUT # 5.8 10*3/uL (2.3-7.9); NEUT % 78.5 % (47.0-73.0); PLATELET COUNT AUTOMATED 371 10*3/uL (130-400); RED BLOOD COUNT 3.69 10*6/uL (4.10-5.10); RED CELL DISTRI WIDTH 16.2 % (0-14.5); WHITE BLOOD COUNT 7.4 10*3/uL (4.8-10.8)
[2018-02-14 14:29] LABS: ALKALINE PHOSPHATASE 95 U/L (45-117); BUN 9 mg/dl (7-24); CHLORIDE 105 mmol/L (98-107); CREATININE 0.78 mg/dL (0.55-1.02); POTASSIUM 4.1 mmol/L (3.5-5.1); SGOT/AST 15 IU/L (3-35); SGPT/ALT 17 U/L (12-78); SODIUM 141 mmol/L (136-145); TOTAL PROTEIN 6.8 gm/dL (6.4-8.2)
[2018-02-14] MEDS ORDERED: ZOFRAN4 MG PO (15:05)
[2018-02-14] MEDS ORDERED: PREDNISONE10 MG PO (15:05)
== END 2018-02-14 15:11 | disposition home or self-care (01) ==
LOC: ED 12:58
PROVIDERS: Nurse Practitioner Family
DX: R07.89 Other chest pain (principal); J44.9 Chronic obstructive pulmonary disease, unspecified; K21.9 Gastro-esophageal reflux disease without esophagitis; E66.01 Morbid (severe) obesity due to excess calories; M19.90 Unspecified osteoarthritis, unspecified site; E66.9 Obesity, unspecified; I10 Essential (primary) hypertension; G25.81 Restless legs syndrome; E11.65 Type 2 diabetes mellitus with hyperglycemia; M06.9 Rheumatoid arthritis, unspecified; Z98.890 Other specified postprocedural states; Z90.49 Acquired absence of other specified parts of digestive tract; Z98.51 Tubal ligation status; Z87.891 Personal history of nicotine dependence; Z79.899 Other long term (current) drug therapy; Z91.041 Radiographic dye allergy status; Z88.6 Allergy status to analgesic agent; Z88.5 Allergy status to narcotic agent

== ENCOUNTER 2018-03-13 20:32 | Emergency (ER) | payer OTHER ==
[~2018-03-13] VITALS: Ht 154.9 cm; Wt 113.4 kg
[~2018-03-13 20:32] MED LIST changes: +ZOFRAN4 MG PO
[2018-03-13] MEDS ORDERED: DUONEB 3 MG/3 ML3 M1 INH (22:35)
== END 2018-03-13 22:42 | disposition home or self-care (01) ==
LOC: ED 20:32
DX: T18.2XXA Foreign body in stomach, initial encounter (principal); C32.9 Malignant neoplasm of larynx, unspecified; J44.9 Chronic obstructive pulmonary disease, unspecified; K21.9 Gastro-esophageal reflux disease without esophagitis; E66.01 Morbid (severe) obesity due to excess calories; G25.81 Restless legs syndrome; I10 Essential (primary) hypertension; M06.9 Rheumatoid arthritis, unspecified; E11.65 Type 2 diabetes mellitus with hyperglycemia; M19.90 Unspecified osteoarthritis, unspecified site; Z98.890 Other specified postprocedural states; Z90.49 Acquired absence of other specified parts of digestive tract; Z98.51 Tubal ligation status; Z79.899 Other long term (current) drug therapy; Z87.891 Personal history of nicotine dependence; Z88.5 Allergy status to narcotic agent; Z88.6 Allergy status to analgesic agent; Z91.041 Radiographic dye allergy status; Z93.0 Tracheostomy status; Y92.9 Unspecified place or not applicable

== ENCOUNTER 2018-05-12 11:33 | Emergency (ER) | payer OTHER ==
[~2018-05-12] VITALS: Wt 113.4 kg
[~2018-05-12 11:33] MED LIST changes: -Amitriptyline H10 MG PO; -FEROSUL325 MG PO; -METFORMIN HYDR500 MG PO; -Motrin,Rufen800 MG PO; -NORCO 5-325 TA1 EACH PO; -PREDNISONE20 M1 PO; -SYNTHROID25 MCG PO; -ZOFRAN8 M1 PO
[2018-05-12] MEDS ORDERED: NORCO 5-325 TA1 EACH PO (13:26)
[2018-05-12] MEDS ORDERED: Motrin,Rufen800 MG PO (13:26)
[2018-06-07] MEDS ORDERED: SYNTHROID25 MCG PO (17:50)
[2018-06-07] MEDS ORDERED: ZOFRAN8 M1 PO (17:50)
[2018-06-10] MEDS ORDERED: METFORMIN HYDR500 MG PO ×2 (17:54→17:56)
[2018-06-10] MEDS ORDERED: DOXYCYCLINE100 M3 PO (17:59)
== END 2018-05-12 13:37 | disposition home or self-care (01) ==
LOC: ED 11:33
DX: S20.211A Contusion of right front wall of thorax, initial encounter (principal); J44.9 Chronic obstructive pulmonary disease, unspecified; K21.9 Gastro-esophageal reflux disease without esophagitis; I10 Essential (primary) hypertension; M19.90 Unspecified osteoarthritis, unspecified site; E66.01 Morbid (severe) obesity due to excess calories; E11.9 Type 2 diabetes mellitus without complications; Z91.041 Radiographic dye allergy status; Z88.1 Allergy status to other antibiotic agents; Z88.0 Allergy status to penicillin; Z88.8 Allergy status to other drugs, medicaments and biological substances; Z79.899 Other long term (current) drug therapy; Z87.891 Personal history of nicotine dependence; W18.39XA Other fall on same level, initial encounter; Y93.89 Activity, other specified; Y92.89 Other specified places as the place of occurrence of the external cause; Y99.8 Other external cause status

== ENCOUNTER → 2018-05-12 | Outpatient (CLI) | payer OTHER ==
[~2018-05-12] MED LIST changes: +Amitriptyline H10 MG PO; +FEROSUL325 MG PO; +METFORMIN HYDR500 MG PO; +Motrin,Rufen800 MG PO; +NORCO 5-325 TA1 EACH PO; +PREDNISONE20 M1 PO; +SYNTHROID25 MCG PO; +ZOFRAN8 M1 PO
[2018-05-12 14:43] LABS: BASO # 0.1 10*3/uL (0.0-0.1); BASO % 0.7 % (0.0-1.0); EOS # 0.9 10*3/uL (0.0-0.4); EOS % 11.5 % (1.0-4.0); HEMATOCRIT 34.8 % (37.0-47.0); HEMOGLOBIN 11.1 g/dl (12.0-16.0); LYMPH # 0.9 10*3/uL (1.3-4.4); LYMPH % 12.3 % (27.0-41.0); MEAN CELL VOLUME 93.3 fl (81.0-99.0); MEAN CORPUSCULAR HGB 29.8 pg (27.0-31.0); MEAN CORPUSCULAR HGB CONC 31.9 g/dl (33.0-37.0); MEAN PLATELET VOLUME 8.8 fl (9.6-12.3); MONO # 0.4 10*3/uL (0.1-1.0); MONO % 5.2 % (3.0-9.0); NEUT # 5.4 10*3/uL (2.3-7.9); PLATELET COUNT AUTOMATED 387 10*3/uL (130-400); RED BLOOD COUNT 3.73 10*6/uL (4.10-5.10); RED CELL DISTRI WIDTH 16.9 % (0-14.5); WHITE BLOOD COUNT 7.7 10*3/uL (4.8-10.8)
[2018-05-12 15:13] LABS: ALBUMIN 3.2 gm/dl (3.1-4.5); ALKALINE PHOSPHATASE 92 U/L (45-117); BUN 11 mg/dl (7-24); CHLORIDE 103 mmol/L (98-107); CREATININE 0.75 mg/dL (0.55-1.02); FREE T4 0.74 ng/dl (0.76-1.46); POTASSIUM 3.9 mmol/L (3.5-5.1); SGOT/AST 10 IU/L (3-35); SGPT/ALT 23 U/L (12-78); SODIUM 139 mmol/L (136-145); TOTAL PROTEIN 7.1 gm/dL (6.4-8.2)
== END | disposition home or self-care (01) ==
LOC: LAB 13:55
PROVIDERS: Physician Assistant
DX: Z51.11 Encounter for antineoplastic chemotherapy (principal); Z45.2 Encounter for adjustment and management of vascular access device; Z76.0 Encounter for issue of repeat prescription; C78.01 Secondary malignant neoplasm of right lung; C32.9 Malignant neoplasm of larynx, unspecified; C32.1 Malignant neoplasm of supraglottis; C77.0 Secondary and unspecified malignant neoplasm of lymph nodes of head, face and neck; K76.9 Liver disease, unspecified; Z92.3 Personal history of irradiation; J44.9 Chronic obstructive pulmonary disease, unspecified; E11.9 Type 2 diabetes mellitus without complications; I10 Essential (primary) hypertension; Z88.8 Allergy status to other drugs, medicaments and biological substances; Z79.899 Other long term (current) drug therapy; Z88.0 Allergy status to penicillin; Z91.041 Radiographic dye allergy status

== ENCOUNTER 2018-05-28 19:04 | Emergency (ER) | payer OTHER ==
[~2018-05-28] VITALS: Wt 120.2 kg
[~2018-05-28 19:04] MED LIST changes: +Motrin,Rufen800 MG PO; +NORCO 5-325 TA1 EACH PO
[2018-06-07] MEDS ORDERED: SYNTHROID25 MCG PO (17:50)
[2018-06-07] MEDS ORDERED: ZOFRAN8 M1 PO (17:50)
[2018-06-10] MEDS ORDERED: METFORMIN HYDR500 MG PO ×2 (17:54→17:56)
[2018-06-10] MEDS ORDERED: DOXYCYCLINE100 M3 PO (17:59)
== END 2018-05-28 20:59 | disposition home or self-care (01) ==
LOC: ED 19:04
DX: Z00.8 Encounter for other general examination (principal); Z87.891 Personal history of nicotine dependence; Z88.5 Allergy status to narcotic agent; Z88.6 Allergy status to analgesic agent; Z98.890 Other specified postprocedural states; Z90.49 Acquired absence of other specified parts of digestive tract; Z98.51 Tubal ligation status; Z79.899 Other long term (current) drug therapy; Z91.041 Radiographic dye allergy status; Z88.8 Allergy status to other drugs, medicaments and biological substances; Z88.1 Allergy status to other antibiotic agents

== ENCOUNTER → 2018-06-02 | Outpatient (CLI) | payer OTHER ==
[~2018-06-02] MED LIST changes: +METFORMIN HYDR500 MG PO; +SYNTHROID25 MCG PO; +ZOFRAN8 M1 PO
[2018-06-02 13:23] LABS: BASO # 0.1 10*3/uL (0.0-0.1); BASO % 0.7 % (0.0-1.0); EOS # 0.9 10*3/uL (0.0-0.4); HEMATOCRIT 33.1 % (37.0-47.0); HEMOGLOBIN 10.6 g/dl (12.0-16.0); LYMPH # 1.2 10*3/uL (1.3-4.4); LYMPH % 17.3 % (27.0-41.0); MEAN CELL VOLUME 95.7 fl (81.0-99.0); MEAN CORPUSCULAR HGB 30.6 pg (27.0-31.0); MEAN PLATELET VOLUME 8.8 fl (9.6-12.3); MONO # 0.4 10*3/uL (0.1-1.0); NEUT # 4.2 10*3/uL (2.3-7.9); NEUT % 62.9 % (47.0-73.0); PLATELET COUNT AUTOMATED 330 10*3/uL (130-400); RED BLOOD COUNT 3.46 10*6/uL (4.10-5.10); RED CELL DISTRI WIDTH 17.6 % (0-14.5); WHITE BLOOD COUNT 6.7 10*3/uL (4.8-10.8)
[2018-06-02 13:51] LABS: ALBUMIN 3.1 gm/dl (3.1-4.5); ALKALINE PHOSPHATASE 78 U/L (45-117); BUN 8 mg/dl (7-24); CHLORIDE 106 mmol/L (98-107); CREATININE 0.74 mg/dL (0.55-1.02); FREE T4 0.91 ng/dl (0.76-1.46); SGOT/AST 14 IU/L (3-35); SGPT/ALT 21 U/L (12-78); SODIUM 141 mmol/L (136-145); TOTAL PROTEIN 6.5 gm/dL (6.4-8.2)
== END | disposition home or self-care (01) ==
LOC: LAB 12:53
PROVIDERS: Physician Assistant
DX: Z51.11 Encounter for antineoplastic chemotherapy (principal); Z45.2 Encounter for adjustment and management of vascular access device; C76.0 Malignant neoplasm of head, face and neck; C78.01 Secondary malignant neoplasm of right lung; K76.9 Liver disease, unspecified; C32.9 Malignant neoplasm of larynx, unspecified; C77.0 Secondary and unspecified malignant neoplasm of lymph nodes of head, face and neck; C32.1 Malignant neoplasm of supraglottis; Z92.3 Personal history of irradiation

== ENCOUNTER → 2018-07-06 | Outpatient (CLI) | payer OTHER ==
[~2018-07-06] MED LIST changes: +Amitriptyline H10 MG PO; +FEROSUL325 MG PO; +PREDNISONE20 M1 PO
[2018-07-06 12:17] LABS: BASO # 0.1 10*3/uL (0.0-0.1); BASO % 0.7 % (0.0-1.0); EOS % 14.2 % (1.0-4.0); HEMATOCRIT 34.9 % (37.0-47.0); HEMOGLOBIN 10.8 g/dl (12.0-16.0); LYMPH # 0.9 10*3/uL (1.3-4.4); LYMPH % 12.2 % (27.0-41.0); MEAN CELL VOLUME 97.8 fl (81.0-99.0); MEAN CORPUSCULAR HGB 30.3 pg (27.0-31.0); MEAN CORPUSCULAR HGB CONC 30.9 g/dl (33.0-37.0); MEAN PLATELET VOLUME 9.3 fl (9.6-12.3); MONO # 0.5 10*3/uL (0.1-1.0); MONO % 6.5 % (3.0-9.0); NEUT # 4.6 10*3/uL (2.3-7.9); NEUT % 65.8 % (47.0-73.0); PLATELET COUNT AUTOMATED 362 10*3/uL (130-400); RED BLOOD COUNT 3.57 10*6/uL (4.10-5.10); WHITE BLOOD COUNT 7.1 10*3/uL (4.8-10.8)
[2018-07-06 12:44] LABS: BUN 9 mg/dl (7-24); CHLORIDE 106 mmol/L (98-107); POTASSIUM 3.9 mmol/L (3.5-5.1); SGOT/AST 16 IU/L (3-35); SGPT/ALT 22 U/L (12-78); SODIUM 140 mmol/L (136-145)
[2018-07-06 12:55] LABS: ALKALINE PHOSPHATASE 78 U/L (45-117); THYROXINE (T4) TOTAL 7.7 ug/dl (4.8-13.9); TOTAL PROTEIN 6.4 gm/dL (6.4-8.2)
== END | disposition home or self-care (01) ==
LOC: LAB 10:50
PROVIDERS: Physician Assistant
DX: Z51.11 Encounter for antineoplastic chemotherapy (principal); C78.01 Secondary malignant neoplasm of right lung; C76.0 Malignant neoplasm of head, face and neck; C32.9 Malignant neoplasm of larynx, unspecified; C77.0 Secondary and unspecified malignant neoplasm of lymph nodes of head, face and neck; C32.1 Malignant neoplasm of supraglottis; K51.011 Ulcerative (chronic) pancolitis with rectal bleeding; K76.9 Liver disease, unspecified; Z45.2 Encounter for adjustment and management of vascular access device; Z92.3 Personal history of irradiation

== ENCOUNTER 2018-08-03 16:15 | Inpatient (IN) | payer OTHER ==
[~2018-08-03] VITALS: Ht 157.5 cm; Wt 118.6 kg
--- NOTE | ~2018-08-03 | EKG ---
[place], [place] ELECTROCARDIOGRAM REPORT NAME: KIP SHARMA UNIT #: [id number] ROOM: 415 DOCTOR: WENDYANY DRAFT REPORT BIRTHDATE: [birth year] [facility] Test Date: 2018-08-03 Test Time: 18:39:27 Pat Name: KIP SHARMA Department: Room: 415 Gender: F Photography Manager: Jeimy Roa : 1960 Requested By: BLANCA MEJÍA PA-C Order Number: [id number] Reading MD: Jai Barros MD Measurements Intervals [place] Rate: 67 P: -40 AL: 122 QRS: 5 QRSD: 67 T: 2 QT: 418 QTc: 442 Interpretive Statements Sinus rhythm Low voltage, precordial leads Probable anteroseptal infarct, old Compared to ECG 06/21/2018 21:32:52 Myocardial infarct finding now present Electronically Signed On 08-04-2018 4:17:03 PDT by Jai Barros MD CM:EKGRPT:ELECTROCARDIOGRAM REPORT 1839 0417 BLANCA MEJÍA PA-C EPIPHANY DRAFT REPORT BLANCA MEJÍA PA-C
[2018-08-03 16:17] VITALS: BP 131/72
[2018-08-03 17:30] LABS: BASO # 0.1 10*3/uL (0.0-0.1); BASO % 0.8 % (0.0-1.0); EOS # 1.1 10*3/uL (0.0-0.4); EOS % 13.4 % (1.0-4.0); HEMATOCRIT 33.5 % (37.0-47.0); HEMOGLOBIN 10.9 g/dl (12.0-16.0); LYMPH # 0.9 10*3/uL (1.3-4.4); LYMPH % 11.7 % (27.0-41.0); MEAN CELL VOLUME 96.5 fl (81.0-99.0); MEAN CORPUSCULAR HGB 31.4 pg (27.0-31.0); MEAN CORPUSCULAR HGB CONC 32.5 g/dl (33.0-37.0); MEAN PLATELET VOLUME 8.9 fl (9.6-12.3); MONO # 0.7 10*3/uL (0.1-1.0); MONO % 8.2 % (3.0-9.0); NEUT # 5.2 10*3/uL (2.3-7.9); NEUT % 65.6 % (47.0-73.0); PLATELET COUNT AUTOMATED 330 10*3/uL (130-400); RED BLOOD COUNT 3.47 10*6/uL (4.10-5.10); RED CELL DISTRI WIDTH 18.2 % (0-14.5)
[2018-08-03 17:32] LABS: BILIRUBIN NEGATIVE (NEGATIVE); BLOOD NEGATIVE (NEGATIVE); CLARITY CLEAR (CLEAR); COLOR YELLOW (YELLOW); GLUCOSE NEGATIVE (NEGATIVE); KETONE NEGATIVE (NEGATIVE); LEUKO ESTERASE NEGATIVE (NEGATIVE); NITRITE NEGATIVE (NEGATIVE); SPECIFIC GRAVITY <= 1.005 (1.005-1.030); UROBILINOGEN 0.2 E.U./dl (0.2-1.0)
[2018-08-03 17:39] LABS: BACTERIA 1+; RBC 0-2 rbc/hpf (0-2); WBC 0-2 wbc/hpf (0-5)
[2018-08-03 17:46] LABS: ALKALINE PHOSPHATASE 82 U/L (45-117); BUN 12 mg/dl (7-24); CHLORIDE 107 mmol/L (98-107); POTASSIUM 3.5 mmol/L (3.5-5.1); SGOT/AST 17 IU/L (3-35); SGPT/ALT 16 U/L (12-78); SODIUM 141 mmol/L (136-145); TOTAL PROTEIN 6.6 gm/dL (6.4-8.2)
[2018-08-03 18:46] LABS: INTERNATIONAL NORM RATIO 0.9 (2.0-3.5)
[2018-08-03 18:55] LABS: LIPASE 101 U/L (73-393); TROPONIN I < 0.015 ng/ml (<0.045)
[2018-08-03 19:00] VITALS: BP 120/67
[2018-08-03 19:24] VITALS: BP 114/76
[2018-08-03 19:33] VITALS: BP 138/78
[2018-08-03 20:00] VITALS: BP 138/78
[2018-08-04] VITALS: BP 131/69
[2018-08-04 06:48] LABS: BASO % 0.6 % (0.0-1.0); EOS # 1.1 10*3/uL (0.0-0.4); EOS % 16.6 % (1.0-4.0); HEMATOCRIT 32.1 % (37.0-47.0); HEMOGLOBIN 10.2 g/dl (12.0-16.0); LYMPH # 1.1 10*3/uL (1.3-4.4); LYMPH % 16.5 % (27.0-41.0); MEAN CELL VOLUME 99.1 fl (81.0-99.0); MEAN CORPUSCULAR HGB 31.5 pg (27.0-31.0); MEAN CORPUSCULAR HGB CONC 31.8 g/dl (33.0-37.0); MONO # 0.6 10*3/uL (0.1-1.0); NEUT # 3.7 10*3/uL (2.3-7.9); PLATELET COUNT AUTOMATED 312 10*3/uL (130-400); RED BLOOD COUNT 3.24 10*6/uL (4.10-5.10); RED CELL DISTRI WIDTH 18.5 % (0-14.5); WHITE BLOOD COUNT 6.4 10*3/uL (4.8-10.8)
[2018-08-04 07:10] LABS: ALBUMIN 2.7 gm/dl (3.1-4.5); ALKALINE PHOSPHATASE 72 U/L (45-117); BUN 10 mg/dl (7-24); CHLORIDE 110 mmol/L (98-107); CREATININE 0.61 mg/dL (0.55-1.02); FREE T4 0.86 ng/dl (0.76-1.46); PHOSPHOROUS 3.5 mg/dL (2.5-4.9); POTASSIUM 3.5 mmol/L (3.5-5.1); SGOT/AST 15 IU/L (3-35); SGPT/ALT 17 U/L (12-78); SODIUM 144 mmol/L (136-145); TOTAL PROTEIN 6.1 gm/dL (6.4-8.2)
[2018-08-04 08:00] VITALS: BP 130/64
[2018-08-04 12:00] VITALS: BP 140/84
[2018-08-04 16:00] VITALS: BP 117/64
[2018-08-04 20:00] VITALS: BP 147/87
[2018-08-05] VITALS: BP 142/79
[2018-08-05 06:22] LABS: BASO % 0.3 % (0.0-1.0); EOS # 0.3 10*3/uL (0.0-0.4); EOS % 2.7 % (1.0-4.0); HEMATOCRIT 32.7 % (37.0-47.0); HEMOGLOBIN 10.1 g/dl (12.0-16.0); LYMPH # 0.6 10*3/uL (1.3-4.4); LYMPH % 6.4 % (27.0-41.0); MEAN CELL VOLUME 99.1 fl (81.0-99.0); MEAN CORPUSCULAR HGB 30.6 pg (27.0-31.0); MEAN CORPUSCULAR HGB CONC 30.9 g/dl (33.0-37.0); MEAN PLATELET VOLUME 9.1 fl (9.6-12.3); MONO # 0.8 10*3/uL (0.1-1.0); MONO % 8.6 % (3.0-9.0); NEUT % 81.5 % (47.0-73.0); PLATELET COUNT AUTOMATED 344 10*3/uL (130-400); RED CELL DISTRI WIDTH 18.1 % (0-14.5); WHITE BLOOD COUNT 9.8 10*3/uL (4.8-10.8)
[2018-08-05 06:35] LABS: BUN 11 mg/dl (7-24); CHLORIDE 107 mmol/L (98-107); CREATININE 0.67 mg/dL (0.55-1.02); POTASSIUM 3.8 mmol/L (3.5-5.1); SODIUM 143 mmol/L (136-145)
[2018-08-05 08:00] VITALS: BP 112/60
== END 2018-08-05 11:36 | disposition home health service (06) | DRG 378 ==
LOC: ED 16:15 → 4E 18:24 → EDHOLD 18:24 → 4E 18:50
PROVIDERS: Internal Medicine; Physician Assistant
DX: K92.2 Gastrointestinal hemorrhage, unspecified (principal); E44.0 Moderate protein-calorie malnutrition; F33.9 Major depressive disorder, recurrent, unspecified; Z68.42 Body mass index [BMI] 45.0-49.9, adult; D64.9 Anemia, unspecified; E11.65 Type 2 diabetes mellitus with hyperglycemia; K21.9 Gastro-esophageal reflux disease without esophagitis; J44.9 Chronic obstructive pulmonary disease, unspecified; G25.81 Restless legs syndrome; E66.01 Morbid (severe) obesity due to excess calories; C14.0 Malignant neoplasm of pharynx, unspecified; M06.9 Rheumatoid arthritis, unspecified; M19.90 Unspecified osteoarthritis, unspecified site; E55.9 Vitamin D deficiency, unspecified; I10 Essential (primary) hypertension; M54.6 Pain in thoracic spine; C44.92 Squamous cell carcinoma of skin, unspecified; E78.00 Pure hypercholesterolemia, unspecified; Z91.041 Radiographic dye allergy status; Z79.899 Other long term (current) drug therapy; Z90.49 Acquired absence of other specified parts of digestive tract; Z93.0 Tracheostomy status; Z88.8 Allergy status to other drugs, medicaments and biological substances; Z98.51 Tubal ligation status; Z90.02 Acquired absence of larynx; Z87.891 Personal history of nicotine dependence; Z82.49 Family history of ischemic heart disease and other diseases of the circulatory system; Z83.3 Family history of diabetes mellitus; Z84.89 Family history of other specified conditions; Z85.05 Personal history of malignant neoplasm of liver

== ENCOUNTER → 2018-08-25 | Outpatient (CLI) | payer OTHER ==
[2018-08-25 14:38] LABS: BASO # 0.1 10*3/uL (0.0-0.1); BASO % 0.6 % (0.0-1.0); EOS % 12.1 % (1.0-4.0); HEMATOCRIT 36.7 % (37.0-47.0); HEMOGLOBIN 11.7 g/dl (12.0-16.0); LYMPH # 1.1 10*3/uL (1.3-4.4); LYMPH % 13.1 % (27.0-41.0); MEAN CELL VOLUME 96.3 fl (81.0-99.0); MEAN CORPUSCULAR HGB 30.7 pg (27.0-31.0); MEAN CORPUSCULAR HGB CONC 31.9 g/dl (33.0-37.0); MEAN PLATELET VOLUME 8.9 fl (9.6-12.3); MONO # 0.5 10*3/uL (0.1-1.0); MONO % 6.2 % (3.0-9.0); NEUT # 5.5 10*3/uL (2.3-7.9); NEUT % 67.9 % (47.0-73.0); PLATELET COUNT AUTOMATED 383 10*3/uL (130-400); RED BLOOD COUNT 3.81 10*6/uL (4.10-5.10); RED CELL DISTRI WIDTH 16.3 % (0-14.5)
[2018-08-25 15:23] LABS: ALBUMIN 3.1 gm/dl (3.1-4.5); ALKALINE PHOSPHATASE 84 U/L (45-117); BUN 14 mg/dl (7-24); CHLORIDE 106 mmol/L (98-107); CREATININE 0.67 mg/dL (0.55-1.02); POTASSIUM 3.6 mmol/L (3.5-5.1); SGOT/AST 14 IU/L (3-35); SGPT/ALT 19 U/L (12-78); SODIUM 139 mmol/L (136-145); THYROXINE (T4) TOTAL 9.9 ug/dl (4.8-13.9); TOTAL PROTEIN 7.3 gm/dL (6.4-8.2)
[2018-08-25 15:31] LABS: T3 UPTAKE 33 % (31-39)
[2018-08-26 06:13] LABS: FREE T3 010389 2.9 pg/mL (2.0-4.4)
[2018-08-26 08:11] LABS: HEPATITIS B SURFACE AG Negative (Negative); HEPATITIS C VIRUS ANTIBODY <0.1 s/co (0.0-0.9)
[2018-08-29 21:07] LABS: HIV 1 AB Negative (Negative); HIV 2 AB Negative (Negative); INTERPRETATION Negative (.)
== END | disposition home or self-care (01) ==
LOC: LAB 13:54
PROVIDERS: Nurse Practitioner Women's Health
DX: Z51.11 Encounter for antineoplastic chemotherapy (principal); Z45.2 Encounter for adjustment and management of vascular access device; C76.0 Malignant neoplasm of head, face and neck; C78.01 Secondary malignant neoplasm of right lung; K76.9 Liver disease, unspecified; C32.9 Malignant neoplasm of larynx, unspecified; C32.1 Malignant neoplasm of supraglottis; C77.0 Secondary and unspecified malignant neoplasm of lymph nodes of head, face and neck; D64.9 Anemia, unspecified; Z92.3 Personal history of irradiation; Z20.2 Contact with and (suspected) exposure to infections with a predominantly sexual mode of transmission

== ENCOUNTER → 2018-09-01 | Outpatient (CLI) | payer OTHER | END | disposition home or self-care (01) | LOC: MAMMO 04:50 | DX: Z12.31 Encounter for screening mammogram for malignant neoplasm of breast (principal) ==

== ENCOUNTER → 2018-09-26 | Outpatient (CLI) | payer OTHER ==
[2018-09-26 16:11] LABS: BASO # 0.1 10*3/uL (0.0-0.1); BASO % 0.7 % (0.0-1.0); EOS # 0.4 10*3/uL (0.0-0.4); EOS % 4.2 % (1.0-4.0); HEMATOCRIT 36.1 % (37.0-47.0); HEMOGLOBIN 11.8 g/dl (12.0-16.0); LYMPH # 1.1 10*3/uL (1.3-4.4); MEAN CELL VOLUME 96.8 fl (81.0-99.0); MEAN CORPUSCULAR HGB 31.6 pg (27.0-31.0); MEAN CORPUSCULAR HGB CONC 32.7 g/dl (33.0-37.0); MEAN PLATELET VOLUME 8.8 fl (9.6-12.3); MONO # 0.8 10*3/uL (0.1-1.0); MONO % 8.8 % (3.0-9.0); NEUT # 6.2 10*3/uL (2.3-7.9); NEUT % 73.1 % (47.0-73.0); PLATELET COUNT AUTOMATED 350 10*3/uL (130-400); RED BLOOD COUNT 3.73 10*6/uL (4.10-5.10); RED CELL DISTRI WIDTH 16.9 % (0-14.5); WHITE BLOOD COUNT 8.5 10*3/uL (4.8-10.8)
[2018-09-26 16:27] LABS: ALBUMIN 3.1 gm/dl (3.1-4.5); ALKALINE PHOSPHATASE 79 U/L (45-117); BUN 16 mg/dl (7-24); CHLORIDE 106 mmol/L (98-107); CREATININE 0.74 mg/dL (0.55-1.02); POTASSIUM 3.7 mmol/L (3.5-5.1); SGOT/AST 18 IU/L (3-35); SGPT/ALT 20 U/L (12-78); SODIUM 140 mmol/L (136-145); TOTAL PROTEIN 6.7 gm/dL (6.4-8.2)
[2018-09-26 16:29] LABS: FREE T4 0.77 ng/dl (0.76-1.46)
== END | disposition home or self-care (01) ==
LOC: LAB 15:31
PROVIDERS: Physician Assistant
DX: Z51.11 Encounter for antineoplastic chemotherapy (principal); Z45.2 Encounter for adjustment and management of vascular access device; C76.0 Malignant neoplasm of head, face and neck; C32.9 Malignant neoplasm of larynx, unspecified; C32.1 Malignant neoplasm of supraglottis; C78.01 Secondary malignant neoplasm of right lung; C77.0 Secondary and unspecified malignant neoplasm of lymph nodes of head, face and neck; D64.9 Anemia, unspecified; K76.9 Liver disease, unspecified; Z92.3 Personal history of irradiation

== ENCOUNTER → 2018-11-10 | Outpatient (CLI) | payer OTHER ==
[~2018-11-10] MED LIST changes: +ASPIRIN81 M1 PO; +Ipratropium Brom3 ML INH; +Metformin Hydr500 MG PO; +SEPTDS PO
[2018-11-10 11:20] LABS: BASO % 0.1 % (0.0-1.0); EOS % 0.1 % (1.0-4.0); HEMATOCRIT 37.1 % (37.0-47.0); LYMPH # 1.1 10*3/uL (1.3-4.4); LYMPH % 9.6 % (27.0-41.0); MEAN CELL VOLUME 96.4 fl (81.0-99.0); MEAN CORPUSCULAR HGB 31.2 pg (27.0-31.0); MEAN CORPUSCULAR HGB CONC 32.3 g/dl (33.0-37.0); MEAN PLATELET VOLUME 8.8 fl (9.6-12.3); MONO # 0.8 10*3/uL (0.1-1.0); MONO % 7.1 % (3.0-9.0); NEUT # 9.6 10*3/uL (2.3-7.9); NEUT % 82.8 % (47.0-73.0); PLATELET COUNT AUTOMATED 339 10*3/uL (130-400); RED BLOOD COUNT 3.85 10*6/uL (4.10-5.10); RED CELL DISTRI WIDTH 16.1 % (0-14.5); WHITE BLOOD COUNT 11.6 10*3/uL (4.8-10.8)
[2018-11-10 11:53] LABS: ALBUMIN 3.1 gm/dl (3.1-4.5); ALKALINE PHOSPHATASE 75 U/L (45-117); BUN 17 mg/dl (7-24); CHLORIDE 107 mmol/L (98-107); CPK 89 U/L (26-192); CREATININE 0.75 mg/dL (0.55-1.02); POTASSIUM 3.7 mmol/L (3.5-5.1); SGOT/AST 13 IU/L (3-35); SGPT/ALT 21 U/L (12-78); SODIUM 141 mmol/L (136-145); THYROXINE (T4) TOTAL 8.5 ug/dl (4.8-13.9); TOTAL PROTEIN 6.5 gm/dL (6.4-8.2)
== END | disposition home or self-care (01) ==
LOC: LAB 10:58
PROVIDERS: Physician Assistant
DX: Z51.11 Encounter for antineoplastic chemotherapy (principal); Z45.2 Encounter for adjustment and management of vascular access device; C78.01 Secondary malignant neoplasm of right lung; C76.0 Malignant neoplasm of head, face and neck; C32.1 Malignant neoplasm of supraglottis; D64.9 Anemia, unspecified; K76.9 Liver disease, unspecified; C77.0 Secondary and unspecified malignant neoplasm of lymph nodes of head, face and neck; Z92.3 Personal history of irradiation

== ENCOUNTER → 2018-12-08 | Outpatient (CLI) | payer OTHER ==
[~2018-12-08] MED LIST changes: +BIOFREEZE118 ML T; +DIAZEPAM10 M1 PO; +KEYTRUDA100 MG/4 M IV; +STOOL SOFTENER100 MG PO; +TESSALON PERLE100 MG PO; +XELJANZ XR11 MG PO; -ZANTAC150 MG PO
[2018-12-08 20:06] LABS: BASO % 0.4 % (0.0-1.0); EOS # 0.5 10*3/uL (0.0-0.4); EOS % 6.5 % (1.0-4.0); HEMATOCRIT 35.9 % (37.0-47.0); HEMOGLOBIN 11.5 g/dl (12.0-16.0); LYMPH # 1.5 10*3/uL (1.3-4.4); LYMPH % 21.6 % (27.0-41.0); MEAN CELL VOLUME 97.6 fl (81.0-99.0); MEAN CORPUSCULAR HGB 31.3 pg (27.0-31.0); MEAN PLATELET VOLUME 8.8 fl (9.6-12.3); MONO # 0.5 10*3/uL (0.1-1.0); MONO % 6.7 % (3.0-9.0); NEUT # 4.6 10*3/uL (2.3-7.9); NEUT % 64.5 % (47.0-73.0); PLATELET COUNT AUTOMATED 339 10*3/uL (130-400); RED BLOOD COUNT 3.68 10*6/uL (4.10-5.10); RED CELL DISTRI WIDTH 16.4 % (0-14.5); WHITE BLOOD COUNT 7.1 10*3/uL (4.8-10.8)
[2018-12-08 20:22] LABS: ALBUMIN 3.2 gm/dl (3.1-4.5); ALKALINE PHOSPHATASE 82 U/L (45-117); BUN 17 mg/dl (7-24); CHLORIDE 108 mmol/L (98-107); CPK 140 U/L (26-192); CREATININE 0.84 mg/dL (0.55-1.02); POTASSIUM 3.8 mmol/L (3.5-5.1); SGOT/AST 15 IU/L (3-35); SGPT/ALT 22 U/L (12-78); SODIUM 141 mmol/L (136-145); THYROXINE (T4) TOTAL 8.6 ug/dl (4.8-13.9); TOTAL PROTEIN 6.6 gm/dL (6.4-8.2)
[2018-12-14 07:05] LABS: HIV 1 AB Negative (Negative); HIV 2 AB Negative (Negative); INTERPRETATION Negative (.)
== END | disposition home or self-care (01) ==
LOC: LAB 19:22
PROVIDERS: Internal Medicine Infectious Disease; Physician Assistant
DX: Z51.11 Encounter for antineoplastic chemotherapy (principal); Z45.2 Encounter for adjustment and management of vascular access device; C76.0 Malignant neoplasm of head, face and neck; C32.9 Malignant neoplasm of larynx, unspecified; C32.1 Malignant neoplasm of supraglottis; C78.01 Secondary malignant neoplasm of right lung; K76.9 Liver disease, unspecified; Z21 Asymptomatic human immunodeficiency virus [HIV] infection status; D64.9 Anemia, unspecified

== ENCOUNTER → 2019-02-11 | Outpatient (CLI) | payer OTHER ==
[2019-02-11 08:32] LABS: BASO % 0.5 % (0.0-1.0); EOS # 0.3 10*3/uL (0.0-0.4); EOS % 4.3 % (1.0-4.0); HEMATOCRIT 35.4 % (37.0-47.0); HEMOGLOBIN 11.4 g/dl (12.0-16.0); LYMPH # 0.9 10*3/uL (1.3-4.4); LYMPH % 14.1 % (27.0-41.0); MEAN CELL VOLUME 100.6 fl (81.0-99.0); MEAN CORPUSCULAR HGB 32.4 pg (27.0-31.0); MEAN CORPUSCULAR HGB CONC 32.2 g/dl (33.0-37.0); MEAN PLATELET VOLUME 8.7 fl (9.6-12.3); MONO # 0.5 10*3/uL (0.1-1.0); MONO % 7.8 % (3.0-9.0); NEUT # 4.8 10*3/uL (2.3-7.9); NEUT % 73.1 % (47.0-73.0); PLATELET COUNT AUTOMATED 353 10*3/uL (130-400); RED BLOOD COUNT 3.52 10*6/uL (4.10-5.10); RED CELL DISTRI WIDTH 15.9 % (0-14.5); WHITE BLOOD COUNT 6.5 10*3/uL (4.8-10.8)
[2019-02-11 08:56] LABS: ALKALINE PHOSPHATASE 81 U/L (45-117); BUN 15 mg/dl (7-24); CHLORIDE 109 mmol/L (98-107); CPK 84 U/L (26-192); CREATININE 0.72 mg/dL (0.55-1.02); POTASSIUM 3.9 mmol/L (3.5-5.1); SGOT/AST 14 IU/L (3-35); SGPT/ALT 22 U/L (12-78); SODIUM 142 mmol/L (136-145); THYROXINE (T4) TOTAL 7.2 ug/dl (4.8-13.9); TOTAL PROTEIN 6.6 gm/dL (6.4-8.2)
== END | disposition home or self-care (01) ==
LOC: LAB 08:05
PROVIDERS: Physician Assistant
DX: Z51.11 Encounter for antineoplastic chemotherapy (principal); Z45.2 Encounter for adjustment and management of vascular access device; K76.9 Liver disease, unspecified; C32.9 Malignant neoplasm of larynx, unspecified; C32.1 Malignant neoplasm of supraglottis; C77.0 Secondary and unspecified malignant neoplasm of lymph nodes of head, face and neck; Z92.3 Personal history of irradiation

== ENCOUNTER → 2019-05-04 | Outpatient (CLI) | payer OTHER ==
[~2019-05-04] MED LIST changes: +ACYCLOVIR400 MG PO; +ARTIFICIAL TEA1 EACH OP; +BACITRACIN28.4 GM T; +CEFTRIAXON2 GM/50 ML IV; +ENOXAPARIN120 MG/0.2 SC; +IMDUR SA30 MG PO; +MAGIC MOUTHWASH PO; +METOPROLOL TART50 M1 PO; +NYST SUSP PO
[2019-05-04 12:46] LABS: BASO # 0.1 10*3/uL (0.0-0.1); BASO % 0.8 % (0.0-1.0); EOS # 0.5 10*3/uL (0.0-0.4); EOS % 7.8 % (1.0-4.0); HEMATOCRIT 35.4 % (37.0-47.0); HEMOGLOBIN 11.3 g/dl (12.0-16.0); LYMPH # 0.6 10*3/uL (1.3-4.4); LYMPH % 8.7 % (27.0-41.0); MEAN CELL VOLUME 97.5 fl (81.0-99.0); MEAN CORPUSCULAR HGB 31.1 pg (27.0-31.0); MEAN CORPUSCULAR HGB CONC 31.9 g/dl (33.0-37.0); MEAN PLATELET VOLUME 8.9 fl (9.6-12.3); MONO # 0.5 10*3/uL (0.1-1.0); MONO % 8.4 % (3.0-9.0); NEUT # 4.6 10*3/uL (2.3-7.9); NEUT % 73.8 % (47.0-73.0); PLATELET COUNT AUTOMATED 371 10*3/uL (130-400); RED BLOOD COUNT 3.63 10*6/uL (4.10-5.10); RED CELL DISTRI WIDTH 16.1 % (0-14.5); WHITE BLOOD COUNT 6.3 10*3/uL (4.8-10.8)
[2019-05-04 13:13] LABS: ALBUMIN 2.9 gm/dl (3.1-4.5); BUN 14 mg/dl (7-24); CHLORIDE 108 mmol/L (98-107); SODIUM 141 mmol/L (136-145)
[2019-05-04 13:25] LABS: ALKALINE PHOSPHATASE 72 U/L (45-117); CPK 92 U/L (26-192); SGOT/AST 17 IU/L (3-35); SGPT/ALT 19 U/L (12-78); THYROXINE (T4) TOTAL 9.2 ug/dl (4.8-13.9); TOTAL PROTEIN 6.9 gm/dL (6.4-8.2)
== END | disposition home or self-care (01) ==
LOC: LAB 12:07
PROVIDERS: Physician Assistant
DX: Z51.11 Encounter for antineoplastic chemotherapy (principal); Z45.2 Encounter for adjustment and management of vascular access device; C76.0 Malignant neoplasm of head, face and neck; C78.01 Secondary malignant neoplasm of right lung; K75.9 Inflammatory liver disease, unspecified; C32.9 Malignant neoplasm of larynx, unspecified; C32.1 Malignant neoplasm of supraglottis; C77.0 Secondary and unspecified malignant neoplasm of lymph nodes of head, face and neck; D64.9 Anemia, unspecified; Z92.3 Personal history of irradiation

== ENCOUNTER → 2019-05-28 | Outpatient (CLI) | payer OTHER ==
[~2019-05-28] MED LIST changes: -ACYCLOVIR400 MG PO; -ARTIFICIAL TEA1 EACH OP; -BACITRACIN28.4 GM T; -BIOFREEZE118 ML T; -CEFTRIAXON2 GM/50 ML IV; -ENOXAPARIN120 MG/0.2 SC; -IMDUR SA30 MG PO; -MAGIC MOUTHWASH PO; -METOPROLOL TART50 M1 PO; -NYST SUSP PO; -STOOL SOFTENER100 MG PO; +ZANTAC150 MG PO
[2019-05-28 13:45] LABS: BASO % 0.6 % (0.0-1.0); EOS # 0.6 10*3/uL (0.0-0.4); EOS % 8.8 % (1.0-4.0); HEMATOCRIT 35.8 % (37.0-47.0); LYMPH # 0.7 10*3/uL (1.3-4.4); LYMPH % 9.8 % (27.0-41.0); MEAN CELL VOLUME 95.7 fl (81.0-99.0); MEAN CORPUSCULAR HGB 29.4 pg (27.0-31.0); MEAN CORPUSCULAR HGB CONC 30.7 g/dl (33.0-37.0); MEAN PLATELET VOLUME 8.8 fl (9.6-12.3); MONO # 0.5 10*3/uL (0.1-1.0); MONO % 6.9 % (3.0-9.0); NEUT # 5.3 10*3/uL (2.3-7.9); NEUT % 73.5 % (47.0-73.0); PLATELET COUNT AUTOMATED 410 10*3/uL (130-400); RED BLOOD COUNT 3.74 10*6/uL (4.10-5.10); RED CELL DISTRI WIDTH 15.6 % (0-14.5); WHITE BLOOD COUNT 7.3 10*3/uL (4.8-10.8)
[2019-05-28 14:09] LABS: ALBUMIN 2.7 gm/dl (3.1-4.5); BUN 9 mg/dl (7-24); CHLORIDE 107 mmol/L (98-107); CREATININE 0.66 mg/dL (0.55-1.02); POTASSIUM 3.5 mmol/L (3.5-5.1); SGOT/AST 18 IU/L (3-35); SGPT/ALT 14 U/L (12-78); SODIUM 140 mmol/L (136-145)
[2019-05-28 14:20] LABS: ALKALINE PHOSPHATASE 61 U/L (45-117); CPK 42 U/L (26-192)
== END | disposition home or self-care (01) ==
LOC: LAB 12:44
PROVIDERS: Physician Assistant
DX: Z51.11 Encounter for antineoplastic chemotherapy (principal); C76.0 Malignant neoplasm of head, face and neck; C78.01 Secondary malignant neoplasm of right lung; K76.9 Liver disease, unspecified; D64.9 Anemia, unspecified

== ENCOUNTER 2019-06-03 18:31 | Inpatient (IN) | payer OTHER ==
[~2019-06-03] VITALS: Ht 157.4 cm; Wt 116.4 kg
[2019-06-03] VITALS (7 sets, daily range): BP systolic 90–112; BP diastolic 45–62
--- NOTE | ~2019-06-03 | EKG ---
[place], [place] ELECTROCARDIOGRAM REPORT NAME: KIP CARTER UNIT #: [id number] ROOM: 508 DOCTOR: MARIVEL DRAFT REPORT BIRTHDATE: [birth year] [facility] Test Date: 2019-06-03 Test Time: 21:52:00 Pat Name: KIP CARTER Department: Room: 508 Gender: F Retail Sales Consultant: EKG.NH : 1960 Requested By: JOHN COLE Order Number: [id number] Reading MD: Jai Barros MD Measurements Intervals [place] Rate: 83 P: 37 ID: [id number] QRS: 21 QRSD: 73 T: 3 QT: 399 QTc: 469 Interpretive Statements Sinus rhythm Low voltage, precordial leads Compared to ECG 03/07/2019 16:33:22 Sinus tachycardia no longer present Atrial premature complex(es) no longer present Myocardial infarct finding no longer present Electronically Signed On 06-07-2019 9:51:47 PDT by Jai Barros MD CM:EKGRPT:ELECTROCARDIOGRAM REPORT [id number] 0951 JOHN TINOCO DRAFT REPORT JOHN COLE DO
--- NOTE | ~2019-06-03 | EKG ---
[place], [place] ELECTROCARDIOGRAM REPORT NAME: KIP CARTER UNIT #: [id number] ROOM: 508 DOCTOR: MARIVEL DRAFT REPORT BIRTHDATE: [birth year] [facility] Test Date: 2019-06-04 Test Time: 00:05:18 Pat Name: KIP CARTER Department: Room: 508 Gender: F Horizontal Resaw Operator: : 1960 Requested By: JOHN COLE Order Number: [id number] Reading MD: Jai Barros MD Measurements Intervals [place] Rate: 77 P: 33 OK: 144 QRS: 20 QRSD: 73 T: -4 QT: 442 QTc: 501 Interpretive Statements Sinus rhythm Low voltage, precordial leads Borderline T abnormalities, inferior leads Borderline prolonged QT interval Compared to ECG 03/07/2019 16:33:22 T-wave abnormality now present Sinus tachycardia no longer present Atrial premature complex(es) no longer present Myocardial infarct finding no longer present Electronically Signed On 06-07-2019 9:51:54 PDT by Jai Barros MD CM:EKGRPT:ELECTROCARDIOGRAM REPORT 0005 0951 JOHN TINOCO DRAFT REPORT JOHN COLE DO
--- NOTE | ~2019-06-03 | CON ---
[place], [place] REPORT OF CONSULTATION NAME: [facility]TER [facility] [id number] UNIT #: [id number] ROOM: 508 DOCTOR: JAYCOB REESE BIRTHDATE: [birth year] DOS: 06/08/2019 REQUESTED BY: Hospitalist service. We are consulted for COPD. HISTORY OF PRESENT ILLNESS: This is a 58-year-old female who presented to the hospital on the for chest pain, shortness of breath, and complaints of rectal bleeding. 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 At the time of her evaluation, her chest pain was substernal, constant and radiating to her back that was onset 4 days ago. She did not notice any aggravating or relieving factors and no exertional chest pain. She recently just had an echo on the , which was normal with an ejection fraction of 65% along with a low risk myocardial perfusion stress test on January 29, 2019. She, at that time, stated she was lying about her house for the past 4 days and decided to "finally get up today." She does state, however, that she is not able to walk nearly as far as she could. She also sleeps with 2 pillows sitting upright. She denies any cough, wheeze, or sputum and denies any shortness of breath at rest or lower extremity edema. She does use home oxygen. With regards to her GI bleeding, she states "I see red in the toilet water and it looks like I am on my period." She recently had a colonoscopy on March 08, 2019 that an anal fissure was found that aggressively bled. Her EGD also at that time was unremarkable. When she came in, her hemoglobin was 11.5. She had a colonoscopy performed per Dr. Agosto on the , which showed a rectal hypertrophic fold for which biopsy was performed at that time. On arrival, her hemoglobin was 11.5 and has been slowly decreasing since then. Electrolytes have otherwise been stable. With regards to her respiratory status, chest x-ray showed a mild central vascular congestion and right hilar adenopathy. CTA was negative for PE. No acute airspace consolidation, but does show axillary, hilar, upper abdominal, superior and posterior mediastinal adenopathy along with a decrease in size of her right upper lobe pulmonary nodule. Today, she states that her breathing is doing better and she denies any acute complaints at this time. PAST MEDICAL HISTORY: Includes anal fissure, anxiety, bipolar, carcinoma of the larynx, cardiomegaly, chronic pain, COPD, essential hypertension, GERD, high cholesterol, liver cancer and lung cancer, major depressive, moderate malnutrition, morbid obesity, normocytic anemia, sleep apnea, osteoarthritis, primary squamous cell carcinoma, restless legs syndrome, rheumatoid, type 2 diabetes, and vitamin D deficiency. PAST SURGICAL HISTORY: Includes history of 4 bronchoscopies, lung biopsy, C-sections, cholecystectomy, right hand surgery, laryngectomy, ovarian cystectomy, right knee surgery, tracheostomy, tubal ligation, Port-A-Cath placement and right wrist surgery. SOCIAL HISTORY: Consumes alcohol occasionally. Does not use illicit drugs. Former smoker, quit 5 years ago, used to smoke 1-1/2 to 2 packs a day since age 19. [place], [place] REPORT OF CONSULTATION NAME: KIP CARTER UNIT #: [id number] ROOM: 508 DOCTOR: JAYCOB REESE BIRTHDATE: [birth year] FAMILY HISTORY: Includes father who is at age 86 from gangrene. The mother has diabetes, hypertension and coronary artery disease, passed at age 64 of a myocardial infarction. ALLERGIES: Include IV DYE, ABATACEPT, HUMIRA, CEPHALEXIN, CLINDAMYCIN, MUCINEX, IODINE, NAPROXEN, OXYCODONE from OXYCONTIN and LEVAQUIN. HOME MEDICATIONS: Include aspirin, Tessalon Perles, vitamin D, vitamin B12, diazepam, duloxetine, nebulizer, iron, FeroSul, folic acid, Vicodin, Dilaudid, ipratropium bromide, Synthroid, lisinopril, meloxicam, metformin, methotrexate, Zofran, Protonix, Keytruda, Zantac, Requip, Zocor and Xeljanz. PHYSICAL EXAMINATION: GENERAL: No acute distress, appears comfortable, sitting upright, eating a meal. HEENT: Normocephalic, atraumatic. NECK: No JVD. Laryngeal tube present with trach oxygen placement. CARDIOVASCULAR: Regular rate and rhythm. No murmurs, rubs or gallops. PULMONARY: Clear to auscultation bilaterally. ABDOMEN: Nondistended, nontender. No rebound, rigidity or guarding. EXTREMITIES: No gross deformity, cyanosis or edema. NEUROLOGIC: Cranial nerves 2-12 intact. GENITOURINARY: No symptoms. No [place] present. ASSESSMENT: 1. Acute on chronic respiratory failure. 2. Chronic obstructive pulmonary disease. 3. Sleep apnea. 4. Laryngeal cancer. 5. Gastrointestinal bleed. PLAN: At this time is to continue current medical management from our perspective unless there is another cause for hospitalization. The patient is cleared from the Pulmonary service for outpatient followup at this time. The patient is currently on Deltasone p.o. as well as her home medications. No antibiotics at this time. The patient should continue her current oxygen therapy at this time. If no further bleeding events have occurred from GI perspective, the patient can be cleared for outpatient followup. JAYCOB REESE DO [place], [place] REPORT OF CONSULTATION NAME: [facility]IP UNIT #: [id number] ROOM: 508 DOCTOR: JAYCOB REESE BIRTHDATE: [birth year] ISSAC DAVALOS MD CM:CONSTR:REPORT OF CONSULTATION 0959 06/09/19 0034 interface
--- NOTE | ~2019-06-03 | CON ---
[place], [place] REPORT OF CONSULTATION NAME: KIP CARTER [facility] #: [id number] UNIT #: [id number] ROOM: 508 DOCTOR: ISSAC FERNANDEZ MD BIRTHDATE: [birth year] DOS: 06/08/2019 PULMONARY CONSULTATION, EVALUATION AND MANAGEMENT REASON FOR CONSULTATION: Assess the patient's respiratory status with acute exacerbation of chronic obstructive pulmonary disease. The patient was independently seen and examined, [id number] encounter. History was confirmed. Physical examination was performed. Labs were reviewed. Note done by the medical dosimetrist was approved. Assessment and management of the patient's today's visit and consultation was personally made for this patient. HISTORY OF PRESENT ILLNESS: This is a 58-year-old white female patient known with history of head and neck cancer, which are noted metastatic, been treated by the Medical Oncology Service and also treated by her surgeon from [facility]. The patient has been admitted to the hospital on the date of 06/03/2019. The patient presented to the hospital with symptoms reported as shortness of breath with exertion. She was also complaining of pain in the midsternal area. The pain for the patient would radiate into the back. The symptoms have been present for a few days with prior to assessment and admission to the hospital. The patient does have mild cough without any sputum expectoration. Denies symptoms of hemoptysis. The patient does not report any symptoms of wheezing. She was also stating symptoms of orthopnea as per patient noted in the history. All the symptoms since hospitalization, she has been treated and seemed to be resolving. She also reported active bleeding and has been assessed by the GI services for that. REVIEW OF SYSTEMS: CONSTITUTIONAL: Fatigue and tiredness noted without any symptoms of fever or chills. EYES: Denies burning, redness, or tenderness. EARS, NOSE, THROAT SYMPTOMS: Denies sore throat, hoarseness, otalgia, postnasal drainage or epistaxis. CARDIOVASCULAR: Denies angina pain, edema, pain of the lower extremities. GASTROINTESTINAL: No dysphagia, nausea, vomiting, diarrhea, abdominal pain, hematemesis or melena. The patient noted rectal bleeding as stated. GENITOURINARY: No dysuria, suprapubic pain, or hematuria. MUSCULOSKELETAL: The patient denies any joint pain, redness, or tenderness. SKIN: No lesions or rashes reported. Remaining systems were reviewed with the patient, they were noted all negative. PAST MEDICAL HISTORY: The patient was known with history of: 1. Chronic obstructive pulmonary disease. 2. Obstructive sleep apnea disorder. 3. General anxiety disorder. 4. Type 2 diabetes mellitus. 5. Rheumatoid arthritis. 6. Degenerative arthritis. [place], [place] REPORT OF CONSULTATION NAME: KIP CARTER [facility] UNIT #: [id number] ROOM: 508 DOCTOR: INGRID FERNANDEZ MDM BIRTHDATE: [birth year] 7. Restless leg syndrome. 8. Chronic obesity. 9. Hypercholesterolemia. 10. Essential hypertension. 11. Metastatic head and neck cancer. The cancer arising from the epiglottis was noted with mets to the lungs. PAST SURGICAL HISTORY: 1. Laparoscopic cholecystectomy. 2. . 3. Right knee arthroscopy. 4. Vocal cord polyp removal. 5. Therapeutic bronchoscopy. 6. Radical neck dissection, laryngectomy, removal of the epiglottis cancer and then recurrence, which required couple of surgical intervention in [facility] in [place], [place]. 7. Permanent tracheotomy. SOCIAL HISTORY: The patient is , has one child. Denies history of alcohol or illicit drug use. Tobacco use from age of [age] years old, a pack of cigarettes per day that has been discontinued since 11/2013. FAMILY HISTORY: The patient's father of complications related to diabetes at the age of 86-year-old. Mother with complication of myocardial infarction at the age of 6464 years old. CURRENT MEDICATIONS: Administered was noted: 1. Methotrexate. 2. Prednisone 50 mg daily. 3. Lovenox 40 mg subcutaneous, DVT prophylaxis. 4. Requip. 5. Xeljanz XR 11 mg daily. 6. Lipitor. 7. Lisinopril. 8. Levothyroxine. 9. Folic acid. 10. Ferrous sulfate. 11. Cymbalta. 12. Vitamin B12. 13. Protonix. 14. Diflucan. 15. Diazepam. 16. Hydromorphone. DRUG ALLERGIES: 1. IVP DYE. 2. IODINE. 3. OXYCONTIN. 4. NAPROXEN. 5. KEFLEX. [place], [place] REPORT OF CONSULTATION NAME: KIP CARTER UNIT #: [id number] ROOM: 508 DOCTOR: ANOOP CONTRERAS MD,ISSAC BIRTHDATE: [birth year] 6. CLINDAMYCIN. 7. LEVAQUIN. 8. HUMIRA. 9. ORENCIA. PHYSICAL EXAMINATION: GENERAL: A 58-year-old female patient who has been noted comfortable without any distress this morning of assessment. Height of 5 feet 2 inches, weight of 256 pounds, BMI 46.9. VITAL SIGNS: Temperature low-grade noted 100.2 degrees Fahrenheit. She was admitted with respiratory rate 17-20, heart rate 70-61, blood pressure 110/68-113/59. The pulse oxygen saturation recorded as 96% saturation with SAMI mask. HEENT: Head was atraumatic, chronic obesity. NECK: Supple. CARDIOVASCULAR: S1, S2 is audible. LUNGS: The patient was noted free of any wheezing or crackles. ABDOMEN: Soft, obese, nontender. Bowel sounds present. EXTREMITIES: The patient was noted without any acute edema. MUSCULOSKELETAL: Without acute deformities. CENTRAL NERVOUS SYSTEM: Grossly intact. There were no focal deficits. LABORATORY DATA: CBC this morning, WBC count 12.5, hemoglobin 9.6, and platelet count 443,000. CMP this morning, normal BUN and creatinine. Albumin 2.4. Ultrasound of bilateral lower extremities completed on 06/07/2019 noted as negative. CTA of the chest that was done on 06/06/2019 was reviewed, does not show any dense pulmonary embolism. Lymphadenopathy noted, which is new in the axilla, right hilum, upper abdomen and mediastinum as well. The previous right paratracheal lymph node noted decreased in the size. The pulmonary nodule has been also noted previously decreased in the size. IMPRESSION: 1. The patient will be currently admitted to the hospital with symptoms of shortness of breath noted, multifactorial, but there was no evidence of acute exacerbation of chronic obstructive pulmonary disease at this time was considered. Possibility of congestive heart failure, diastolic dysfunction to be considered kept in mind with symptoms of orthopnea, which will likely cause shortness of breath. 2. History of known metastatic disease: The patient arising from the head and neck cancer of the epiglottis with a nodule with good response noted. However, lymphadenopathy noted at this time, significance of that remains unknown. ____ medication-induced lymphadenopathy may be considered. 3. History of obstructive sleep apnea disorder, does not require any treatment because of current permanent tracheotomy at the present time. 4. Chronic obesity. 5. History of rheumatoid arthritis and other multiple comorbid conditions. 6. Acute lower GI bleeding was suspected on admission, which has been already treated and managed by Dr. Madison. PLAN OF MANAGEMENT: The patient could be discharged home from the [place], [place] REPORT OF CONSULTATION NAME: KIP CARTER UNIT #: [id number] ROOM: 508 DOCTOR: ANOOP CONTRERAS MD,ISSAC BIRTHDATE: [birth year] supplementation as well as other medication, which has been used by the patient on a regular basis. The patient does not use any CPAP or BiPAP since she has a tracheotomy as a treatment for sleep apnea for the patient is effectively taken care of with permanent tracheostomy and tracheotomy. Bronchodilators and the inhaled steroids with nebulizer will be continued in the home settings. Usual care. Continue to monitor the patient as an outpatient in the office. Further pulmonary standpoint will be kept. The patient was also noted with the GI bleeding. The patient underwent endoscopy, biopsy of the rectal fold was done for the patient to exclude carcinoma ____ by Dr. Madison's note. ISSAC DAVALOS MD CM:CONSTR:REPORT OF CONSULTATION 1022 06/09/19 0124 interface
--- NOTE | ~2019-06-03 | EKG ---
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
--- NOTE | ~2019-06-03 | O ---
[place], [place] OPERATIVE NOTE NAME: KIP CARTER UNIT #: [id number] ROOM: 508 DOCTOR: MARIAN KING MD BIRTHDATE: [birth year] DOS: GASTROENDOSCOPIC REPORT INDICATIONS: This 58-year-old patient who has presented with a chief complaint of rectal bleed, undergoing investigation. The patient with cholangiocarcinoma, lung CA. PROCEDURE: Today's procedure part of investigation is colonoscopy plus biopsy. PREMEDICATION: Propofol. SCOPE: Olympus forward-viewing colonoscope 10L video. REPORT: After putting the patient in left lateral position and application of lubricant to the scope, the scope was introduced. Thereafter, under direct visualization, advanced through the length of colon without difficulty. Base of the cecum explored, appendiceal orifice identified, ileocecal valve was defined. Scope was withdrawn back to the rectal pouch. Hypertrophic rectal fold right at the rectal sphincter was identified, photographed. Multiple biopsies obtained, very fragile in nature. It appears like a flat polyp of tubulovillous adenomatous characteristics. Multiple biopsies obtained. The patient extubated, tolerated the procedure well. IMPRESSION: Rectal flat hypertrophic fold consistent with a tubular adenoma polyp, tubulovillous adenomatous growth, ruling out in situ carcinoma. PLAN AND DISCUSSION: Supportive management. Awaiting biopsy results. This can be eradicated with laser coagulation or argon photocoagulation in future once the biopsy results are available. Thank you very much indeed. [place], [place] OPERATIVE NOTE NAME: KIP CARTER UNIT #: [id number] ROOM: 508 DOCTOR: MARIAN KING MD BIRTHDATE: [birth year] MARIAN KING MD CM:OPRECORD:OPERATIVE NOTE 49 03 MARIAN KING MD 06/04/192002 interface
--- NOTE | ~2019-06-03 | CON ---
[place], [place] REPORT OF CONSULTATION [facility] [id number] UNIT #: [id number] ROOM: 508 DOCTOR: MARIAN KING MD BIRTHDATE: [birth year] DOS: 06/04/2019 GASTROENDOSCOPY REPORT HISTORY OF PRESENT ILLNESS: A 58-year-old patient who has presented with a chief complaint of history of rectal bleed, previous history of fissure. The patient with pharyngeal carcinoma, status post chemotherapy by Dr. Menendez on a 3-month schedule. The patient had a CBC differential, H and H of 11 and 35 with platelets of 420. INR of 1.0. Comprehensive metabolic panel; BUN and creatinine 17 and 1.3, GFR 47. Chest x-ray shows mild central vascular congestion. Troponin is normal. CBC differential, no compromise of acute concern on CBC differential. PAST MEDICAL HISTORY: Associated with laryngeal carcinoma, COPD, essential hypertension, obesity, lung CA, carcinoma of the larynx, major depression and osteoarthritis, restless legs syndrome, and diabetes mellitus. PAST SURGICAL HISTORY: Cholecystectomy, , ovarian cystectomy, laryngectomy, tracheostomy and tubal ligation. SOCIAL HISTORY: Nonsmoker at the present time. She has stopped smoking, nonalcohol consumer, except on rare occasion. FAMILY HISTORY: Noncontributory. ALLERGIES: NAPROXEN, OXYCODONE, LEVOFLOXACIN, CLINDAMYCIN, CEPHALEXIN, HUMIRA, ORENCIA, IVP DYE, IODINE, AND GUANFACINE. HOME MEDICATIONS: At home has been reviewed including aspirin, iron supplementation, methotrexate, antiemetics, Protonix and others as reviewed. REVIEW OF SYSTEMS: HEENT: Denies double vision, blurred vision. RESPIRATORY: Admits to shortness of breath. CARDIOVASCULAR: No chest pain. DIGESTIVE SYSTEM: Rectal bleed. PHYSICAL EXAMINATION: VITAL SIGNS: Stable. GENERAL: Obese patient. HEENT: Head normocephalic, nontraumatic. NECK: Tracheostomy in place. LUNGS: COPD pattern. HEART: Normal sinus rhythm, no gallop, no murmur. ABDOMEN: Obese, soft. No hepato-organomegaly. Bowel sounds present. EXTREMITIES: No cyanosis, no pedal edema. NEUROLOGIC: Alert, oriented to time, place, person. Sensory, motor intact. Cranial nerves 2-12 intact. INTEGUMENT: Numerous tattoo markings on anteroposterior upper and lower extremities, trunk and extremities. [place], [place] REPORT OF CONSULTATION NAME: KIP CARTER UNIT #: [id number] ROOM: 508 DOCTOR: MARIAN KING MD BIRTHDATE: [birth year] IMPRESSION: Rectal bleed. PLAN AND DISCUSSION: Colonoscopic examination. MARIAN KING MD CM:CONSTR:REPORT OF CONSULTATION 09 06/05/19 0703 interface
[~2019-06-03 18:31] MED LIST changes: -KEYTRUDA100 MG/4 M IV; -ZANTAC150 MG PO
[2019-06-03 18:53] LABS: BASO # 0.1 10*3/uL (0.0-0.1); BASO % 0.5 % (0.0-1.0); EOS # 0.6 10*3/uL (0.0-0.4); EOS % 6.4 % (1.0-4.0); HEMATOCRIT 35.8 % (37.0-47.0); HEMOGLOBIN 11.5 g/dl (12.0-16.0); LYMPH # 0.8 10*3/uL (1.3-4.4); LYMPH % 7.9 % (27.0-41.0); MEAN CELL VOLUME 93.7 fl (81.0-99.0); MEAN CORPUSCULAR HGB 30.1 pg (27.0-31.0); MEAN CORPUSCULAR HGB CONC 32.1 g/dl (33.0-37.0); MEAN PLATELET VOLUME 8.9 fl (9.6-12.3); MONO % 10.2 % (3.0-9.0); NEUT # 7.2 10*3/uL (2.3-7.9); NEUT % 74.6 % (47.0-73.0); PLATELET COUNT AUTOMATED 420 10*3/uL (130-400); RED BLOOD COUNT 3.82 10*6/uL (4.10-5.10); RED CELL DISTRI WIDTH 15.5 % (0-14.5); WHITE BLOOD COUNT 9.7 10*3/uL (4.8-10.8)
[2019-06-03 19:05] LABS: ACT PARTIAL THROMBO TIME 44.8 SECONDS (20.0-32.1)
[2019-06-03 19:11] LABS: ALBUMIN 2.7 gm/dl (3.1-4.5); ALKALINE PHOSPHATASE 59 U/L (45-117); BUN 17 mg/dl (7-24); CHLORIDE 103 mmol/L (98-107); CREATININE 1.39 mg/dL (0.55-1.02); POTASSIUM 3.6 mmol/L (3.5-5.1); SGOT/AST 14 IU/L (3-35); SGPT/ALT 14 U/L (12-78); SODIUM 135 mmol/L (136-145); TOTAL PROTEIN 7.4 gm/dL (6.4-8.2)
[2019-06-03 19:12] LABS: TROPONIN I < 0.015 ng/ml (<0.045)
[2019-06-04] VITALS (7 sets, daily range): BP systolic 97–107; BP diastolic 50–69
[2019-06-04] MEDS ORDERED: KEYTRUDA100 MG/4 M IV (00:05)
[2019-06-04 06:07] LABS: BASO % 0.5 % (0.0-1.0); EOS # 0.8 10*3/uL (0.0-0.4); EOS % 10.5 % (1.0-4.0); HEMATOCRIT 35.7 % (37.0-47.0); HEMOGLOBIN 11.3 g/dl (12.0-16.0); LYMPH # 1.4 10*3/uL (1.3-4.4); LYMPH % 18.5 % (27.0-41.0); MEAN CELL VOLUME 93.7 fl (81.0-99.0); MEAN CORPUSCULAR HGB 29.7 pg (27.0-31.0); MEAN CORPUSCULAR HGB CONC 31.7 g/dl (33.0-37.0); MEAN PLATELET VOLUME 8.7 fl (9.6-12.3); MONO # 0.9 10*3/uL (0.1-1.0); MONO % 12.3 % (3.0-9.0); NEUT # 4.3 10*3/uL (2.3-7.9); NEUT % 58.1 % (47.0-73.0); PLATELET COUNT AUTOMATED 405 10*3/uL (130-400); RED BLOOD COUNT 3.81 10*6/uL (4.10-5.10); RED CELL DISTRI WIDTH 15.6 % (0-14.5); WHITE BLOOD COUNT 7.4 10*3/uL (4.8-10.8)
[2019-06-04 06:34] LABS: CREATININE 1.32 mg/dL (0.55-1.02); POTASSIUM 3.9 mmol/L (3.5-5.1)
[2019-06-05] VITALS: BP 123/77
[2019-06-05 06:42] LABS: BASO # 0.1 10*3/uL (0.0-0.1); BASO % 0.7 % (0.0-1.0); EOS # 0.8 10*3/uL (0.0-0.4); EOS % 10.7 % (1.0-4.0); HEMATOCRIT 34.1 % (37.0-47.0); HEMOGLOBIN 10.7 g/dl (12.0-16.0); LYMPH # 0.6 10*3/uL (1.3-4.4); LYMPH % 7.7 % (27.0-41.0); MEAN CELL VOLUME 93.9 fl (81.0-99.0); MEAN CORPUSCULAR HGB 29.5 pg (27.0-31.0); MEAN CORPUSCULAR HGB CONC 31.4 g/dl (33.0-37.0); MEAN PLATELET VOLUME 9.2 fl (9.6-12.3); MONO # 0.5 10*3/uL (0.1-1.0); NEUT # 5.3 10*3/uL (2.3-7.9); NEUT % 73.8 % (47.0-73.0); PLATELET COUNT AUTOMATED 412 10*3/uL (130-400); RED BLOOD COUNT 3.63 10*6/uL (4.10-5.10); RED CELL DISTRI WIDTH 15.5 % (0-14.5); WHITE BLOOD COUNT 7.1 10*3/uL (4.8-10.8)
[2019-06-05 06:51] LABS: BUN 15 mg/dl (7-24); CHLORIDE 105 mmol/L (98-107); CREATININE 0.76 mg/dL (0.55-1.02); POTASSIUM 3.8 mmol/L (3.5-5.1); SODIUM 139 mmol/L (136-145)
[2019-06-05 08:00] VITALS: BP 108/74
[2019-06-05 12:00] VITALS: BP 112/63
[2019-06-05 16:00] VITALS: BP 123/91
[2019-06-05 20:00] VITALS: BP 116/74
[2019-06-06] VITALS: BP 104/61
[2019-06-06 06:24] LABS: BASO % 0.5 % (0.0-1.0); EOS # 0.7 10*3/uL (0.0-0.4); EOS % 7.9 % (1.0-4.0); HEMATOCRIT 35.3 % (37.0-47.0); HEMOGLOBIN 10.8 g/dl (12.0-16.0); LYMPH # 0.6 10*3/uL (1.3-4.4); LYMPH % 6.8 % (27.0-41.0); MEAN CELL VOLUME 94.9 fl (81.0-99.0); MEAN CORPUSCULAR HGB CONC 30.6 g/dl (33.0-37.0); MEAN PLATELET VOLUME 9.1 fl (9.6-12.3); MONO # 0.7 10*3/uL (0.1-1.0); MONO % 7.6 % (3.0-9.0); NEUT # 6.6 10*3/uL (2.3-7.9); NEUT % 76.8 % (47.0-73.0); PLATELET COUNT AUTOMATED 438 10*3/uL (130-400); RED BLOOD COUNT 3.72 10*6/uL (4.10-5.10); RED CELL DISTRI WIDTH 15.3 % (0-14.5); WHITE BLOOD COUNT 8.6 10*3/uL (4.8-10.8)
[2019-06-06 06:37] LABS: BUN 11 mg/dl (7-24); CHLORIDE 101 mmol/L (98-107); CREATININE 0.75 mg/dL (0.55-1.02); POTASSIUM 4.1 mmol/L (3.5-5.1); SODIUM 133 mmol/L (136-145)
[2019-06-06 08:00] VITALS: BP 122/74
[2019-06-06 12:00] VITALS: BP 130/82
[2019-06-06 16:00] VITALS: BP 96/68
[2019-06-06 20:20] VITALS: BP 102/64
[2019-06-07] VITALS: BP 90/50
[2019-06-07 06:03] LABS: HEMATOCRIT 31.6 % (37.0-47.0); HEMOGLOBIN 9.9 g/dl (12.0-16.0); MEAN CELL VOLUME 94.3 fl (81.0-99.0); MEAN CORPUSCULAR HGB 29.6 pg (27.0-31.0); MEAN CORPUSCULAR HGB CONC 31.3 g/dl (33.0-37.0); MEAN PLATELET VOLUME 9.1 fl (9.6-12.3); PLATELET COUNT AUTOMATED 391 10*3/uL (130-400); RED BLOOD COUNT 3.35 10*6/uL (4.10-5.10); RED CELL DISTRI WIDTH 15.3 % (0-14.5); WHITE BLOOD COUNT 6.7 10*3/uL (4.8-10.8)
[2019-06-07 06:28] LABS: BUN 12 mg/dl (7-24); CHLORIDE 104 mmol/L (98-107); CREATININE 0.67 mg/dL (0.55-1.02); POTASSIUM 4.7 mmol/L (3.5-5.1); SODIUM 136 mmol/L (136-145)
[2019-06-07 07:12] LABS: BASOPHILS 1 % (0-1); PLATELET SUFFICIENCY NORMAL (NORMAL); SCHISTOCYTES FEW; TOTAL CELLS COUNTED 100 #CELLS
[2019-06-07 08:00] VITALS: BP 110/68
[2019-06-07 09:10] VITALS: BP 110/68
[2019-06-07 12:00] VITALS: BP 85/50
[2019-06-07 16:00] VITALS: BP 90/43
[2019-06-07 20:00] VITALS: BP 112/53
[2019-06-08] VITALS: BP 114/59
[2019-06-08 08:00] VITALS: BP 113/59
[2019-06-08 08:22] LABS: BASO % 0.1 % (0.0-1.0); EOS % 0.1 % (1.0-4.0); HEMATOCRIT 30.5 % (37.0-47.0); HEMOGLOBIN 9.6 g/dl (12.0-16.0); LYMPH # 0.7 10*3/uL (1.3-4.4); LYMPH % 5.6 % (27.0-41.0); MEAN CELL VOLUME 94.7 fl (81.0-99.0); MEAN CORPUSCULAR HGB 29.8 pg (27.0-31.0); MEAN CORPUSCULAR HGB CONC 31.5 g/dl (33.0-37.0); MEAN PLATELET VOLUME 9.1 fl (9.6-12.3); MONO # 0.8 10*3/uL (0.1-1.0); MONO % 6.7 % (3.0-9.0); NEUT # 10.9 10*3/uL (2.3-7.9); PLATELET COUNT AUTOMATED 443 10*3/uL (130-400); RED BLOOD COUNT 3.22 10*6/uL (4.10-5.10); RED CELL DISTRI WIDTH 15.4 % (0-14.5); WHITE BLOOD COUNT 12.5 10*3/uL (4.8-10.8)
[2019-06-08 08:55] LABS: ALBUMIN 2.4 gm/dl (3.1-4.5); ALKALINE PHOSPHATASE 63 U/L (45-117); BUN 12 mg/dl (7-24); CHLORIDE 107 mmol/L (98-107); CREATININE 0.65 mg/dL (0.55-1.02); POTASSIUM 4.4 mmol/L (3.5-5.1); SGOT/AST 14 IU/L (3-35); SGPT/ALT 19 U/L (12-78); SODIUM 140 mmol/L (136-145); TOTAL PROTEIN 6.7 gm/dL (6.4-8.2)
[2019-06-09] MEDS ORDERED: BIOFREEZE118 ML T (18:49)
[2019-06-09] MEDS ORDERED: STOOL SOFTENER100 MG PO (18:49)
[2019-06-12] MEDS ORDERED: DILAUDID4 MG PO (12:57)
[2019-06-17] MEDS ORDERED: ACYCLOVIR400 MG PO (15:32)
[2019-06-18] MEDS ORDERED: MAGIC MOUTHWASH PO (09:30)
[2019-06-18] MEDS ORDERED: CEFTRIAXON2 GM/50 ML IV (09:30)
== END 2019-06-08 13:55 | disposition home or self-care (01) | DRG 377 ==
LOC: ED 18:31 → 5E 22:27 → EDHOLD 22:27 → 5E 22:51
PROVIDERS: Emergency Medicine; Family Medicine; Registered Nurse; ADMIT Internal Medicine
PROC: 0DBP8ZX Excision of Rectum, Via Natural or Artificial Opening Endoscopic, Diagnostic (ICD-10-PCS; principal; 2019-06-04)
DX: K92.2 Gastrointestinal hemorrhage, unspecified (principal); N17.0 Acute kidney failure with tubular necrosis; J96.20 Acute and chronic respiratory failure, unspecified whether with hypoxia or hypercapnia; E44.0 Moderate protein-calorie malnutrition; E87.1 Hypo-osmolality and hyponatremia; J44.1 Chronic obstructive pulmonary disease with (acute) exacerbation; C78.02 Secondary malignant neoplasm of left lung; C78.01 Secondary malignant neoplasm of right lung; Z68.42 Body mass index [BMI] 45.0-49.9, adult; M94.0 Chondrocostal junction syndrome [Tietze]; F41.1 Generalized anxiety disorder; I11.0 Hypertensive heart disease with heart failure; E66.01 Morbid (severe) obesity due to excess calories; I50.9 Heart failure, unspecified; E11.65 Type 2 diabetes mellitus with hyperglycemia; K60.2 Anal fissure, unspecified; K21.9 Gastro-esophageal reflux disease without esophagitis; C14.0 Malignant neoplasm of pharynx, unspecified; G47.33 Obstructive sleep apnea (adult) (pediatric); M06.9 Rheumatoid arthritis, unspecified; E55.9 Vitamin D deficiency, unspecified; E78.00 Pure hypercholesterolemia, unspecified; M19.90 Unspecified osteoarthritis, unspecified site; D12.8 Benign neoplasm of rectum; G25.81 Restless legs syndrome; G89.29 Other chronic pain; F31.9 Bipolar disorder, unspecified; D47.3 Essential (hemorrhagic) thrombocythemia; Z99.81 Dependence on supplemental oxygen; Z88.6 Allergy status to analgesic agent; Z88.1 Allergy status to other antibiotic agents; Z91.041 Radiographic dye allergy status; Z88.8 Allergy status to other drugs, medicaments and biological substances; Z91.048 Other nonmedicinal substance allergy status; Z98.891 History of uterine scar from previous surgery; Z90.49 Acquired absence of other specified parts of digestive tract; Z98.51 Tubal ligation status; Z87.891 Personal history of nicotine dependence; Z82.49 Family history of ischemic heart disease and other diseases of the circulatory system; Z83.3 Family history of diabetes mellitus; Z85.05 Personal history of malignant neoplasm of liver; Z85.118 Personal history of other malignant neoplasm of bronchus and lung; Z79.82 Long term (current) use of aspirin; Z79.899 Other long term (current) drug therapy; Z79.890 Hormone replacement therapy; Z93.0 Tracheostomy status; Z85.89 Personal history of malignant neoplasm of other organs and systems; Z92.21 Personal history of antineoplastic chemotherapy

== ENCOUNTER 2019-06-21 12:04 | Inpatient (IN) | payer OTHER ==
[~2019-06-21] VITALS: Ht 157.4 cm; Wt 123.0 kg
--- NOTE | ~2019-06-21 | PR ---
[place], [place] PROGRESS NOTE NAME: KIP CARTER UNIT #: [id number] ROOM: 424 DOCTOR: ISSAC FERNANDEZ MD BIRTHDATE: [birth year] DOS: 06/24/2019 SUBJECTIVE: She has been noted comfortable at this time, resting in the bed this morning. Coughing continued to improve. There were no finding noted cellulitis of the face. Denies symptoms of fever or chills. Denies symptoms of hemoptysis. OBJECTIVE: GENERAL: This morning, the patient comfortably sitting on the bed without any distress. Oxygen supplementation SAMI mask. VITAL SIGNS: Normal temperature, respiratory rate 20, heart rate 64, blood pressure 110/57. Pulse oxygen saturation recorded on 30% oxygen with edema is 100% saturation. HEAD, EYES, EARS, NOSE, AND THROAT: Examination shows head was atraumatic. Eyes nonicterus. NECK: Supple. Tracheostomy in place. CARDIOVASCULAR SYSTEM: S1, S2 audible. LUNGS: Noted without any wheeze or crackles. ABDOMEN: Soft and obese. EXTREMITIES: No acute changes. LABORATORY DATA: CTA of the chest that was done yesterday shows a small pulmonary embolism in the left lower pulmonary arterial branches. IMPRESSION: 1. The patient with acute thromboembolic disease, bilateral deep venous thrombosis, small peripheral pulmonary embolism was noted in the left lower lobe pulmonary arterial branch. 2. History of cancer of the epiglottis, which is noted metastatic. 3. Resolving cellulitis on the face. 4. Resolving acute tracheobronchitis. PLAN OF MANAGEMENT: No changes in plan of care at this time. Continue the patient's current plan of management as in progress. Other therapy, plan of management, care plan and treatments. [place], [place] PROGRESS NOTE NAME: KIP CARTER UNIT #: [id number] ROOM: 424 DOCTOR: ISSAC FERNANDEZ MD BIRTHDATE: [birth year] ISSAC DAVALOS MD CM:PNTRANS 1035 [id number] ISSAC CONTRERAS MD 06/24/19 1117 interface
--- NOTE | ~2019-06-21 | PR ---
[place], [place] PROGRESS NOTE NAME: KIP CARTER UNIT #: [id number] ROOM: 424 DOCTOR: ANOOP CONTRERAS MD,ISSAC BIRTHDATE: [birth year] DOS: 06/25/2019 PULMONARY PROGRESS NOTE SUBJECTIVE: She has been noted comfortable at this time. Mild cough noted at time without any sputum expectoration or symptoms of chest pain, fever or chills. Denies symptoms of edema, pain in lower extremities. She was continued on Lovenox injection for the thromboembolism management with history of recurrent malignancy. PHYSICAL EXAMINATION: VITAL SIGNS: Normal temperature, respiratory rate 18, heart rate 67, blood pressure noted 129/69. Pulse oxygen saturation on the ____ mask was noted as 96% saturation 30% oxygen. HEENT: Examination shows tracheostomy in place. Moderate obesity. Postoperative changes in the neck was noted. CARDIOVASCULAR: S1, S2 audible. LUNGS: Noted clear of any wheezing or crackles. ABDOMEN: Soft and obese. EXTREMITIES: No acute findings. IMPRESSION: 1. The patient with acute thromboembolism. 2. Resolving acute bronchitis and cellulitis of the lower extremities. PLAN OF MANAGEMENT: No change in plan of management, discharge planning per primary care physician. The discharge planning was discussed with Dr. Billings. ISSAC DAVALOS MD CM:PNTRANS [id number] ISSAC CONTRERAS MD 06/25/19 1725 interface
--- NOTE | ~2019-06-21 | CON ---
[place], [place] REPORT OF CONSULTATION NAME: KIP CARTER UNIT #: [id number] ROOM: 424 DOCTOR: JENNIFER BUTT [facility],[place] BIRTHDATE: [birth year] DOS: 06/23/2019 CARDIOLOGY CONSULTATION HISTORY OF PRESENT ILLNESS: The patient came in with sepsis and pneumonitis and treated appropriately. The patient is found to have pulmonary congestion and history of congestion in the past and arteriosclerotic heart disease. The patient came to the Emergency Room, she had fever of 102 at that time. The patient is on IV antibiotics and the patient has pulmonary edema and a concern for the condition and appropriate adjustment of the medications was done. The echocardiogram report shows systolic ejection fractions optimal. No significant valve disease noted. Right heart was prominent. The patient has a history of cardiomegaly and pulmonary congestion, could be related to cardiovascular abnormality, considered put on beta-blocking agent, optimize the medical therapy to improve the pulmonary congestion and the cardiomegaly. She has history of rheumatoid arthritis and a small dose of nitrates also may be suggested. PHYSICAL EXAMINATION: VITAL SIGNS: Stable. LUNGS: Diminished breath sounds at bases, bibasilar rales. HEART: S1, S2 regular. Ventricular gallop. ABDOMEN: Soft. SKIN: Color is good, not diaphoretic. EXTREMITIES: No cyanosis. BREASTS: Deferred, unrelated. RECTAL: Deferred, unrelated. Echocardiogram report is enclosed. Thank you very much for asking me to see the patient. I will follow the patient. MOUSTAPHA RODRIGUEZ MD CM:CONSTR:REPORT OF CONSULTATION 1737 06/24/19 0700 interface
--- NOTE | ~2019-06-21 | EKG ---
[place], [place] ELECTROCARDIOGRAM REPORT NAME: KIP CARTER UNIT #: [id number] ROOM: 424 DOCTOR: MARIVEL DRAFT REPORT BIRTHDATE: [birth year] [facility] Test Date: 2019-06-22 Test Time: 13:54:31 Pat Name: KIP CARTER Department: Room: 424 1 Gender: F Fine Grader: : 1960 Requested By: OLESYA WHYTE Order Number: [id number] Reading MD: Erick Barrientos MD Measurements Intervals [place] Rate: 89 P: 35 OR: 137 QRS: 18 QRSD: 68 T: 6 QT: 372 QTc: 453 Interpretive Statements Sinus rhythm Low voltage, precordial leads Electronically Signed On 06-23-2019 8:08:44 PDT by Erick Barrientos MD CM:EKGRPT:ELECTROCARDIOGRAM REPORT [id number] OLESYA TINOCO DRAFT REPORT OLESYA WHYTE DO
--- NOTE | ~2019-06-21 | PR ---
[place], [place] PROGRESS NOTE NAME: KIP CARTER [facility] #: [id number] UNIT #: [id number] ROOM: 424 DOCTOR: ANOOP CONTRERAS MD,ISSAC BIRTHDATE: [birth year] DOS: 06/23/2019 SUBJECTIVE: The patient has been noted comfortable at this time, reduction in symptoms of shortness of breath. Oxygen supplementation was continued. She has a CT of the chest, which was completed this morning, pending results after she was given the preparation for the IVP dye. She has been noted with mild cough at the present time. Denies symptoms of fever or chills. There were no symptoms of pain in the lower extremity noted. Pain in the lower extremity was described by the patient has been resolved. She has been continued with subcutaneous Lovenox therapeutic dose 1 mg/kg dose as well. She has not been noted symptoms of headache or diplopia. There were no symptoms of hemoptysis or hematuria reported. Remaining systems were reviewed and they were noted all negative. OBJECTIVE: VITAL SIGNS: Normal temperature, respiratory rate 20, heart rate of 61, blood pressure 120/60 recorded this morning. Pulse oxygen saturation on SAMI mask 98-100% saturation recorded. HEENT: Examination shows head was atraumatic. Eyes nonicterus. Tracheostomy, which has been noted previously is intact. NECK: Supple. CARDIOVASCULAR: S1, S2 is audible. LUNGS: Noted clear of wheezing. ABDOMEN: Chronic obesity without any tenderness. EXTREMITIES: The patient was noted without any obvious edema. MUSCULOSKELETAL: Without acute deformities. CENTRAL NERVOUS SYSTEM: Intact. SKIN: Visible skin without lesions or rashes. LABORATORY DATA: WBC count 18.1 today, hemoglobin 8.7, platelet count was normal. CMP was noted with glucose 136. BUN and creatinine was normal. Magnesium 2.2. Albumin 2.4. Urine culture noted 50,000 colony forming units of Enterobacter cloacae. IMPRESSION: 1. The patient who has been currently noted with pulmonary embolism, suspected with venous thromboembolism and deep venous thrombosis of bilateral lower extremities. 2. The patient with stable chronic hypoxic respiratory failure. 3. Resolving cellulitis of the lower extremities. 4. Cellulitis of the facial area in the right side of the face was resolving. 5. Metastatic head and neck cancer. 6. Obstructive sleep apnea disorder. PLAN OF MANAGEMENT: Continue Lovenox. The patient will be continued on current ____. cargo and ramp services manager has been asked to assess the patient for getting this medication as an outpatient for the long-term management. In the meantime, other therapy, plan of management previously ordered will be continued without changes. Usual care, other supportive therapy, plan of management, care plan [place], [place] PROGRESS NOTE NAME: KIP CARTER UNIT #: [id number] ROOM: 424 DOCTOR: ANOOP CONTRERAS MD,ISSAC BIRTHDATE: [birth year] and treatment. ISSAC DAVALOS MD CM:PNTRANS [id number] ISSAC CONTRERAS MD 06/23/19 1347 interface
--- NOTE | ~2019-06-21 | EKG ---
[place], [place] ELECTROCARDIOGRAM REPORT NAME: KIP CARTER UNIT #: [id number] ROOM: 424 DOCTOR: MARIVEL DRAFT REPORT BIRTHDATE: [birth year] [facility] Test Date: 2019-06-21 Test Time: 12:09:46 Pat Name: KIP CARTER Department: Room: 424 Gender: F Customer Support Advisor: : 1960 Requested By: JOHN COLE Order Number: [id number] Reading MD: Erick Barrientos MD Measurements Intervals [place] Rate: 94 P: -50 MA: 113 QRS: 31 QRSD: 63 T: 13 QT: 336 QTc: 421 Interpretive Statements Ectopic atrial rhythm Borderline short MA interval Low voltage, precordial leads Compared to ECG 06/09/2019 20:15:32 Ectopic atrial rhythm now present Sinus rhythm no longer present ST (T wave) deviation no longer present Electronically Signed On 06-22-2019 4:43:03 PDT by Erick Barrientos MD CM:EKGRPT:ELECTROCARDIOGRAM REPORT [id number] JOHN TINOCO DRAFT REPORT JOHN COLE DO
--- NOTE | ~2019-06-21 | EKG ---
[place], [place] ELECTROCARDIOGRAM REPORT NAME: KIP CARTER UNIT #: [id number] ROOM: 424 DOCTOR: MARIVEL DRAFT REPORT BIRTHDATE: [birth year] [facility] Test Date: 2019-06-21 Test Time: 15:04:14 Pat Name: KIP CARTER Department: Room: 424 Gender: F Frozen Foods Manager: Stacey Nascimento : 1960 Requested By: JOHN COLE Order Number: [id number] Reading MD: Erick Barrientos MD Measurements Intervals [place] Rate: 85 P: 38 OK: 125 QRS: 14 QRSD: 69 T: 5 QT: 376 QTc: 447 Interpretive Statements Sinus rhythm Probable left atrial enlargement Low voltage, precordial leads Nonspecific ST changes Electronically Signed On 06-23-2019 4:06:26 PDT by Erick Barrientos MD CM:EKGRPT:ELECTROCARDIOGRAM REPORT [id number] JOHN TINOCO DRAFT REPORT JOHN COLE DO
--- NOTE | ~2019-06-21 | EKG ---
[place], [place] ELECTROCARDIOGRAM REPORT NAME: KIP CARTER UNIT #: [id number] ROOM: 424 DOCTOR: MARIVEL DRAFT REPORT BIRTHDATE: [birth year] [facility] Test Date: 2019-06-21 Test Time: 18:33:42 Pat Name: KIP CARTER Department: Room: 424 Gender: F Punchboard Assembler: Familia Pacheco : 1960 Requested By: JOHN COLE Order Number: [id number] Reading MD: Erick Barrientos MD Measurements Intervals [place] Rate: 83 P: 42 DE: 135 QRS: 13 QRSD: 73 T: 3 QT: 385 QTc: 453 Interpretive Statements Sinus rhythm Low voltage, precordial leads Electronically Signed On 06-23-2019 4:18:39 PDT by Erick Barrientos MD CM:EKGRPT:ELECTROCARDIOGRAM REPORT [id number] JOHN TINOCO DRAFT REPORT JOHN COLE DO
--- NOTE | ~2019-06-21 | CON ---
[place], [place] REPORT OF CONSULTATION NAME: KIP CARTER [facility] #: [id number] UNIT #: [id number] ROOM: 424 DOCTOR: ANOOP CONTRERAS MDISSAC BIRTHDATE: [birth year] DOS: 06/22/2019 PULMONARY CONSULTATION, EVALUATION AND MANAGEMENT REASON FOR CONSULTATION: To assess the patient for symptoms of shortness of breath. HISTORY OF PRESENT ILLNESS: This is a 58-year-old white female patient known to me. She has been recently admitted to the hospital and was treated for acute cellulitis of the right side of the neck and the face and also noted tracheobronchitis. She has a permanent tracheostomy because of the history of cancer. 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 She presented to the hospital as the patient started having symptoms of shortness of breath, which are occurring with a temperature elevation of 102 degrees Fahrenheit. Also complaining of pain in the right side of the face. She was also complaining of symptoms of headache. She does have some cough and intermittent sputum expectoration from the tracheostomy. Denies symptoms of chest pain with that. She denies symptoms of wheezing. The patient was getting outpatient intravenous antibiotic recommended for cellulitis. The patient did come to the Emergency Room where she has been assessed and currently hospitalized. She denies any symptoms of hemoptysis. REVIEW OF SYSTEMS: CONSTITUTIONAL SYMPTOMS: Fatigue and tiredness reported with fever at home, but there were no chills. EYES: Denies burning, redness, or tenderness. EARS, NOSE, THROAT SYMPTOMS: Denies sore throat, hoarseness, otalgia, postnasal drainage or epistaxis. CARDIOVASCULAR: Denies anginal pain. The patient noted the pain of the lower extremities. GASTROINTESTINAL: Denies dysphagia, nausea, vomiting, diarrhea, abdominal pain, hematemesis, melena, or hematochezia. SKIN: Denies abnormal lesions or rashes. CENTRAL NERVOUS SYSTEM: Denies dizziness, headache, diplopia or syncopal episode. Remaining systems were reviewed with the patient and they were noted all negative. PAST MEDICAL HISTORY: Known with: 1. A recent hospitalization for cellulitis of the face, tracheobronchitis and other medical illnesses. 2. 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 3. Chronic obstructive pulmonary disease. 4. Obstructive sleep apnea disorder. 5. General anxiety disorder. 6. Type 2 diabetes mellitus. 7. Rheumatoid arthritis. [place], [place] REPORT OF CONSULTATION NAME: KIP CARTER UNIT #: [id number] ROOM: [facility] DOCTOR[facility] [birth year] 8. Degenerative arthritis. 9. Restless legs syndrome. 10. Chronic moderate severe obesity. 11. Hypercholesterolemia. 12. Essential hypertension. PAST SURGICAL HISTORY: 1. Therapeutic bronchoscopy. 2. Laparoscopic cholecystectomy. 3. . 4. Right knee arthroscopy. 5. Biopsy of the epiglottis. 6. Vocal cord polypectomy, which was benign. 7. Radical neck dissection with complete laryngectomy with recurrence of the lymph node locally required ____ additional interventions in the past. 8. Permanent tracheotomy. SOCIAL HISTORY: The patient lives at home. She does not have any history of alcohol or any illicit drug use. Tobacco use was noted from the past as smoking a cigarette that was started at the age of [age] years old, 1 pack of cigarettes per day, discontinued in 11/2013. FAMILY HISTORY: The patient's father with complication related to diabetes mellitus at the age of 8686 years old. Mother at age of 64 with complication related to coronary artery disease and myocardial infarction. CURRENT MEDICATIONS: Administered, started on this hospitalization were noted as: 1. Pembrolizumab 100 mg p.o. daily. 2. Methotrexate 15 mg every . 3. Imdur 30 mg at bedtime. 4. Metoprolol tartrate 25 mg b.i.d. 5. Lisinopril 10 mg daily. 6. Meloxicam 15 mg daily. 7. Aspirin 81 mg daily. 8. Ferrous sulfate 325 mg daily. 9. Vitamin B12 1 mcg p.o. daily. 10. Folic acid 1 mg p.o. daily. 11. Protonix 40 mg daily. 12. Synthroid 25 mcg daily. 13. Requip ____ mg at bedtime. 14. Simvastatin 20 mg daily. 15. Famotidine 20 mg b.i.d. 16. Cymbalta 60 mg b.i.d. 17. Solu-Medrol 40 mg b.i.d. 18. Lovenox 120 mg subcutaneous b.i.d. 19. DuoNeb q. 6 hours p.r.n. 20. IV Rocephin 2 gm daily and some other p.r.n. medication administration. DRUG ALLERGIES: Noted as: [place], [place] REPORT OF CONSULTATION NAME: KIP CARTER UNIT #: [id number] ROOM: 424 DOCTOR: ANOOP CONTRERAS MD,ISSAC BIRTHDATE: [birth year] 1. IVP DYE. 2. MUCINEX. 3. OXYCONTIN. 4. NAPROXEN. 5. CLINDAMYCIN. 6. LEVAQUIN. 7. HUMIRA. 8. ORENCIA. PHYSICAL EXAMINATION: GENERAL: This is a 58-year-old female who has been currently noted to be awake and alert without any acute distress. Height of 5 feet 2 inches, weight of 281 pounds, BMI 47. VITAL SIGNS: For the patient, which have been recorded showed the temperature 99.7 degree Fahrenheit to 100 degrees temperature, the respiratory rate ranged between 26-20, heart rate 70-85, blood pressure 90/55-118/80. Pulse oxygen saturation on 4 liters with SAMI mask as 96% saturation. HEENT: Chronic obesity. Head was atraumatic. There was no visible evidence of cellulitis of the face. NECK: Supple. Postoperative surgical changes. Tracheostomy in place. CARDIOVASCULAR: S1, S2 is audible. LUNGS: Noted without any wheezing or crackles at the present time. ABDOMEN: Soft, nontender. Bowel sounds present. EXTREMITIES: Noted without any obvious edema. MUSCULOSKELETAL: Without any acute deformities. CENTRAL NERVOUS SYSTEM: Cranial nerves 2-12 intact. LABORATORY DATA: CBC that was done yesterday, WBC count normal, hemoglobin 9.6, and platelet count was normal. Lactic acid 1.6. CMP that was done on 06/21/2019, normal BUN and creatinine. Sodium 133. Troponin noted as normal. The ESR was noted as normal. PT, PTT were noted as normal yesterday on admission as well. The BMP that was done this morning, glucose 157, BUN and creatinine were normal. Electrolytes were normal. Chest x-ray, 1 view that was done was noted without any acute visible pulmonary infiltration, mild interstitial edema cannot be excluded. Ultrasound bilateral lower extremity was completed yesterday because of the pain of the lower extremities and the findings were reported by the Radiology Services with evidence of acute nonocclusive DVT involving the right mid superficial femoral vein and acute occlusion on bilateral distal superficial femoral vein. The patient was also noted with new finding as compared with the previous ultrasound of the lower extremities of 2017. IMPRESSION: 1. The patient will be currently admitted with symptoms of shortness of breath related to the possibility of thromboembolism with acute deep venous thrombosis of bilateral lower extremities. Because of the allergies to IODINE and IVP DYE, CTA of the chest was not performed. 2. History of chronic obstructive pulmonary disease, does not seem to have an acute exacerbation. 3. High risk for malignancy with high risk for thromboembolism because of the [place], [place] REPORT OF CONSULTATION NAME: KIP CARTER UNIT #: [id number] ROOM: 424 DOCTOR: ISSAC FERNANDEZ MD BIRTHDATE: [birth year] active head and neck cancer. 4. Resolving cellulitis of the face as well gradually and progressively. 5. Permanent tracheostomy. 6. Obstructive sleep apnea disorder. 7. Restless leg syndrome. PLAN OF MANAGEMENT: At this time, the patient is also started on the drug of choice as Lovenox 1 mg/kg body weight b.i.d. that will be continued. Upon stability, the patient will need to be addressed CTA of the chest will be done. Discussion to assess with the burden of the tumor. At this time, would be considered a stable low risk for pulmonary embolism because of the negative troponin noted on this patient. The patient will be continued on the Rocephin completely total duration of 2 weeks. The patient discharged for the ____ cellulitis of the face. Bronchodilator will be continued p.r.n. Other additional treatment changes will be made based on progression of the illness with additional treatment changes recommended based on the progression of the current illness. Thanks for allowing me to participate in the care of this patient. ISSAC DAVALOS MD CM:CONSTR:REPORT OF CONSULTATION 1207 06/22/197 interface
[~2019-06-21 12:04] MED LIST changes: +ACYCLOVIR400 MG PO; +BIOFREEZE118 ML T; +CEFTRIAXON2 GM/50 ML IV; +KEYTRUDA100 MG/4 M IV; +MAGIC MOUTHWASH PO; +STOOL SOFTENER100 MG PO
[2019-06-21 12:20] VITALS: BP 97/53
[2019-06-21 12:45] VITALS: BP 122/87
[2019-06-21 12:56] LABS: ALBUMIN 2.6 gm/dl (3.1-4.5); ALKALINE PHOSPHATASE 50 U/L (45-117); BUN 11 mg/dl (7-24); CHLORIDE 100 mmol/L (98-107); CREATININE 0.76 mg/dL (0.55-1.02); SGOT/AST 23 IU/L (3-35); SGPT/ALT 37 U/L (12-78); SODIUM 133 mmol/L (136-145); TOTAL PROTEIN 5.9 gm/dL (6.4-8.2)
[2019-06-21 13:00] VITALS: BP 121/58
[2019-06-21 13:08] LABS: TROPONIN I < 0.015 ng/ml (<0.045)
[2019-06-21 13:09] LABS: BASO % 0.2 % (0.0-1.0); EOS # 0.4 10*3/uL (0.0-0.4); EOS % 4.4 % (1.0-4.0); HEMATOCRIT 29.6 % (37.0-47.0); HEMOGLOBIN 9.6 g/dl (12.0-16.0); LYMPH # 0.5 10*3/uL (1.3-4.4); MEAN CELL VOLUME 93.4 fl (81.0-99.0); MEAN CORPUSCULAR HGB 30.3 pg (27.0-31.0); MEAN CORPUSCULAR HGB CONC 32.4 g/dl (33.0-37.0); MEAN PLATELET VOLUME 9.4 fl (9.6-12.3); MONO # 0.3 10*3/uL (0.1-1.0); NEUT # 7.2 10*3/uL (2.3-7.9); NEUT % 85.9 % (47.0-73.0); PLATELET COUNT AUTOMATED 231 10*3/uL (130-400); RED BLOOD COUNT 3.17 10*6/uL (4.10-5.10); RED CELL DISTRI WIDTH 18.1 % (0-14.5); WHITE BLOOD COUNT 8.4 10*3/uL (4.8-10.8)
[2019-06-21 13:31] LABS: BILIRUBIN NEGATIVE (NEGATIVE); BLOOD NEGATIVE (NEGATIVE); CLARITY SL CLOUDY (CLEAR); COLOR YELLOW (YELLOW); GLUCOSE NEGATIVE (NEGATIVE); KETONE NEGATIVE (NEGATIVE); LEUKO ESTERASE NEGATIVE (NEGATIVE); NITRITE NEGATIVE (NEGATIVE); PH 8.5 (5.0-9.0)
[2019-06-21 13:49] LABS: ACT PARTIAL THROMBO TIME 23.1 SECONDS (20.0-32.1); INTERNATIONAL NORM RATIO 0.9 (2.0-3.5)
[2019-06-21 13:57] LABS: BACTERIA 1+; EPITHELIAL CELLS 15-20
[2019-06-21 14:00] VITALS: BP 124/82
--- NOTE | 2019-06-21 15:30 | NUR ---
A 58, admitted to , under the services of ASTON Mckeon DO with a diagnosis of CHEST PAIN. Chief complaint is CHEST PAIN. Patient arrived via wheel chair from ER. Monitor applied. Initial assessment completed. Vital signs taken and recorded. ASTON MCKEON DO notified of admission to the unit. Orders received. See assessment for past medical history, medications and allergies. Patient and/or family oriented to unit. [facility]. Clothing/patient valuable form completed. ALEXANDRA CARREON
[2019-06-21 16:00] VITALS: BP 124/70
[2019-06-21] MEDS ORDERED: BACITRACIN28.4 GM T (16:15)
[2019-06-21] MEDS ORDERED: NYST SUSP PO (16:16)
[2019-06-21] MEDS ORDERED: ARTIFICIAL TEA1 EACH OP (16:17)
--- NOTE | 2019-06-21 16:21 | NUR ---
DR. BANKS NOTIFIED OF PT'S MED REC UTD.
--- NOTE | 2019-06-21 17:00 | NUR ---
DR. DAVALOS CONSULTED FOR HX OF CA AND SOB. WILL SEE PT TOMORROW.
--- NOTE | 2019-06-21 17:00 | NUR ---
PT LEAVING FLOOR FOR US OF BLE VIA W/C.
--- NOTE | 2019-06-21 17:06 | NUR ---
DR. RODRIGUEZ NOTIFIED OF NEW CONSULT FOR MIDSTERNAL CHEST PRESSURE. WILL SEE PT TOMORROW. IF PT HAD AN ECHO W/IN THE LAST 6 MO, PLACE A COPY IN THE CHART. IF NOT, THEN OBTAIN ONE.
--- NOTE | 2019-06-21 17:14 | NUR ---
PT RETURNED FROM RADIOLOGY AT THIS TIME.
--- NOTE | 2019-06-21 17:42 | NUR ---
[facility] RADI[facility] PHONED W/CRITICAL RESULTS OF BLE US FOR BILATERAL DVT'S. DR. BANKS NOTIFIED.
[2019-06-21 20:00] VITALS: BP 109/55
[2019-06-21] MEDS ORDERED: DILAUDID4 MG PO (22:38)
--- NOTE | 2019-06-21 22:48 | NUR ---
DR. GRANADOS NOTIFIED OF PT'S REQUEST FOR PAIN MED. OK TO R/O PO NORCO AND PO DILAUDID.
[2019-06-22] VITALS: BP 112/68; BP 90/48
--- NOTE | 2019-06-22 01:24 | NUR ---
24 HOUR CHART CHECK DONE
[2019-06-22 04:00] VITALS: BP 122/64
[2019-06-22 06:41] LABS: HEMATOCRIT 30.4 % (37.0-47.0); HEMOGLOBIN 9.4 g/dl (12.0-16.0); MEAN CORPUSCULAR HGB 29.9 pg (27.0-31.0); MEAN CORPUSCULAR HGB CONC 30.9 g/dl (33.0-37.0); MEAN PLATELET VOLUME 9.7 fl (9.6-12.3); PLATELET COUNT AUTOMATED 275 10*3/uL (130-400); RED BLOOD COUNT 3.14 10*6/uL (4.10-5.10); RED CELL DISTRI WIDTH 18.4 % (0-14.5); WHITE BLOOD COUNT 8.5 10*3/uL (4.8-10.8)
[2019-06-22 06:43] LABS: MEAN CELL VOLUME 96.8 fl (81.0-99.0)
[2019-06-22 06:52] LABS: BUN 12 mg/dl (7-24); CHLORIDE 106 mmol/L (98-107); CREATININE 0.66 mg/dL (0.55-1.02); POTASSIUM 4.2 mmol/L (3.5-5.1); SODIUM 139 mmol/L (136-145)
--- NOTE | 2019-06-22 07:28 | NUR ---
CONSULT WAS CALLED IN FOR DR. CARDENAS FOR FACIAL CELLULITIS AND BACTEREMIA. DR. BRYANT WILL SEE PT. TODAY.
[2019-06-22 07:38] LABS: PLATELET SUFFICIENCY NORMAL (NORMAL); POLYCHROMASIA SLIGHT; TOTAL CELLS COUNTED 100 #CELLS
[2019-06-22 08:00] VITALS: BP 118/80
--- NOTE | 2019-06-22 09:00 | NUR ---
Car Storer in to talk to patient. Patient states lives at home with her daughter. There are 0 steps in the home. Physician: Dr. Luis Gongora Pharmacy: [facility] Home health services: none Patient's level of ADLs: MINIMAL ASSIST Patient has working utilities: yes DME: nebulizer, trach mask O2, O2 supplier [employer], wheeled walker (she has not received yet) Follow-up physician's appointment after d/c: will be made by the hospitalist nurse director upon discharge Does patient want to access PORTAL?: no Discharge plan discussed with patient and family sitting at the bedside. She lives at home with her daughter. She states she needs minimal assistance with her ADLs and ambulation. Discussed home health care services and she denies any home needs at this time. When medically stable she will be discharged to home. Her daughter will transport on discharge. ZORAN KHAN
--- NOTE | 2019-06-22 10:00 | NUR ---
Photographer'S Model in to see patient. Discussed short term SNF and she refuses. She states Dr. Jarrell was in earlier and said the same thing about going to a SNF and she refused to him also. She states she will get her IV antibiotics while she is in here within the hospital and then if the IV antibiotics continue after discharge she will come into the hospital daily. When medically stable she will be discharged to home.
--- NOTE | 2019-06-22 10:17 | NUR ---
MEDICATED WITH PO DILAUDID FOR COMPLAINTS OF BILATERAL LEG PAIN. RATES PAIN A 7 ON A PAIN SCALE OF 1-10
--- NOTE | 2019-06-22 11:00 | NUR ---
VOICES THAT DILAUDID WAS EFFECTIVE FOR PAIN
[2019-06-22 12:00] VITALS: BP 118/78; BP 121/78
--- NOTE | 2019-06-22 13:55 | NUR ---
HEART RATE 140-160'S A-FIB WITH RVR. DR. BANKS AND DR. RODRIGUEZ NOTIFIED. ORDERS RECEIVED TO INCREASE LOPRESSOR TO 50MG BID AND START CARDIZEM GTT
--- NOTE | 2019-06-22 13:58 | NUR ---
CONVERTED TO NSR. HEART RATE 100'S
--- NOTE | 2019-06-22 14:28 | NUR ---
MEDICATED WITH DILAUDID PO ORDERED FOR COMPLAINTS OF PAIN IN LEGS. RATES PAIN AN 8 ON A PAIN SCLAE OF 1-10
--- NOTE | 2019-06-22 15:15 | NUR ---
VOICES THAT PAIN MED WAS EFFECTIVE
[2019-06-22 16:00] VITALS: BP 117/86
[2019-06-22 20:00] VITALS: BP 124/72
[2019-06-23] VITALS: BP 113/71
[2019-06-23 06:22] LABS: HEMATOCRIT 27.4 % (37.0-47.0); HEMOGLOBIN 8.7 g/dl (12.0-16.0); MEAN CELL VOLUME 95.8 fl (81.0-99.0); MEAN CORPUSCULAR HGB 30.4 pg (27.0-31.0); MEAN CORPUSCULAR HGB CONC 31.8 g/dl (33.0-37.0); MEAN PLATELET VOLUME 10.5 fl (9.6-12.3); PLATELET COUNT AUTOMATED 249 10*3/uL (130-400); RED BLOOD COUNT 2.86 10*6/uL (4.10-5.10); RED CELL DISTRI WIDTH 18.5 % (0-14.5); WHITE BLOOD COUNT 18.1 10*3/uL (4.8-10.8)
[2019-06-23 06:32] LABS: ALBUMIN 2.4 gm/dl (3.1-4.5); ALKALINE PHOSPHATASE 47 U/L (45-117); BUN 19 mg/dl (7-24); CHLORIDE 110 mmol/L (98-107); CREATININE 0.66 mg/dL (0.55-1.02); PHOSPHOROUS 2.6 mg/dL (2.5-4.9); POTASSIUM 4.6 mmol/L (3.5-5.1); SGOT/AST 13 IU/L (3-35); SGPT/ALT 32 U/L (12-78); SODIUM 139 mmol/L (136-145); TOTAL PROTEIN 5.7 gm/dL (6.4-8.2)
[2019-06-23 07:52] LABS: PLATELET SUFFICIENCY NORMAL (NORMAL); POLYCHROMASIA SLIGHT; TOTAL CELLS COUNTED 100 #CELLS
[2019-06-23 08:00] VITALS: BP 120/60; BP 141/86; BP 148/79
--- NOTE | 2019-06-23 08:30 | NUR ---
DR. DAVALOS HERE TO SEE PATIENT
--- NOTE | 2019-06-23 09:19 | NUR ---
Spoke to pharmacist at [facility], , regarding Lovenox 120 mg BID for 6 months. There is no cost to the patient.
[2019-06-23 12:00] VITALS: BP 115/65
--- NOTE | 2019-06-23 14:45 | NUR ---
MEDICATED WITH NORCO FOR COMPLAINTS OF PAIN IN BACK AND LEGS. RATES PAIN A 7 ON A PAIN SCALE OF 1-10
--- NOTE | 2019-06-23 15:57 | NUR ---
MEDICATED WITH VALIUM 10MG PO ORDERED FOR COMPLAINTS OF ANXIETY
[2019-06-23 16:00] VITALS: BP 126/65
--- NOTE | 2019-06-23 17:00 | NUR ---
VOICES THAT VALIUM WAS EFFECTIVE FOR ANXIETY
[2019-06-23 20:00] VITALS: BP 115/66
--- NOTE | 2019-06-23 21:50 | NUR ---
MEDICATED WITH RESTORIL AND DILAUDID PER PRN ORDERS FOR C/O PAIN AND INSOMNIA.
[2019-06-24] VITALS: BP 110/57
--- NOTE | 2019-06-24 06:10 | NUR ---
DR LEVI NOTIFIED OF NEW SKIN TEAR TO RIGHT FOREARM AND THE NEED FOR ORDERS. WILL CONTINUE TO MONITOR.
--- NOTE | 2019-06-24 06:13 | NUR ---
FINISH MACHINE TENDER NOTIFIED OF PT'S NEW SKIN TEAR.
[2019-06-24 08:00] LABS: HEMATOCRIT 26.9 % (37.0-47.0); HEMOGLOBIN 8.2 g/dl (12.0-16.0); MEAN CELL VOLUME 99.3 fl (81.0-99.0); MEAN CORPUSCULAR HGB 30.3 pg (27.0-31.0); MEAN CORPUSCULAR HGB CONC 30.5 g/dl (33.0-37.0); MEAN PLATELET VOLUME 9.9 fl (9.6-12.3); NUCLEATED RED BLOOD CELL 0.1 % (0.0-0.0); PLATELET COUNT AUTOMATED 260 10*3/uL (130-400); RED BLOOD COUNT 2.71 10*6/uL (4.10-5.10); RED CELL DISTRI WIDTH 18.8 % (0-14.5); WHITE BLOOD COUNT 15.2 10*3/uL (4.8-10.8)
[2019-06-24 08:04] LABS: BUN 22 mg/dl (7-24); CHLORIDE 110 mmol/L (98-107); CREATININE 0.58 mg/dL (0.55-1.02); POTASSIUM 4.5 mmol/L (3.5-5.1); SODIUM 141 mmol/L (136-145)
[2019-06-24 08:21] LABS: OVALOCYTES FEW; PLATELET SUFFICIENCY NORMAL (NORMAL); TOTAL CELLS COUNTED 100 #CELLS
[2019-06-24 08:22] LABS: POLYCHROMASIA SLIGHT; SCHISTOCYTES FEW
--- NOTE | 2019-06-24 10:38 | NUR ---
PT GIVEN VALIUM FORO C/O ANXIETY. WILL MONITOR FOR EFFECTIVENESS.
--- NOTE | 2019-06-24 11:00 | NUR ---
EMMAKIP [id number] Please refer to the physician's history and physical for past medical history, comorbid conditions, and allergies. Diagnosis: CELLULITIS FACE SEPSIS PNEUMONITIS Lane Score: 20,LOW OR NO RISK WOUND DESCRIPTIONS: Wound Number: 1 Location of the wound: right forearm Type of wound: skin tear Thickness: Partial Size: 1cm x 1.8cm x 0.1cm Tunneling: none Undermining: none Sinus Tract: none Presence of Exudate: Serous Amount: Light Color: Red Odor: None Periwound Skin Appearance: Normal Wound edges: approximated Pain (associated with wound): denied at time of assessment How does patient state this happened? patient states that she bumped her arm on the door frame when walking into the bathroom. Surface the patient is resting on: Isoflex SKIN PREVENTION RECOMMENDATION: 1. Pressure redistribution support surface as appropriate 2. Elevate heels 3. Remove boots/TEDS every shift and reapply 4. Head of bed 30 degrees as tolerated 5. Assess nutrition and hydration 6. Manage moisture 7. Avoid the use of containment devices while in bed 8. Use absorptive products on surfaces limit layers of linens on bed 9. Turn and reposition every 1-2 hours in bed and every 1 hour in chair as tolerated 10. Weight shifts every 15 minutes while up in chair 11. Offloading with pillows or device to keep heels elevated off bed 12. Monitor skin at least every shift 13. Inspect under medical devices twice a day WOUND TREATMENT RECOMMENDATIONS: Continue current skin tear guidelines order.
--- NOTE | 2019-06-24 11:38 | NUR ---
VALIUM EFFECTIVE PER PT.
--- NOTE | 2019-06-24 12:33 | NUR ---
PT GIVEN NORCO 10-325 MG TAB AT THIS TIME FOR C/O GENERALIZED PAIN. WILL MONITOR FOR EFFECTIVENESS. PT SITTING UP IN BED, CALL LIGHT IN REACH.
--- NOTE | 2019-06-24 13:30 | NUR ---
YUAN EFFECTIVE PER PT.
--- NOTE | 2019-06-24 14:00 | NUR ---
PHYSICIAN NOTIFIED THAT PT IS REQUESTING MAGIC MOUTHWASH AND BLISTEX FOR SORES IN MOUTH AND ON LIPS. NEW ORDERS RECEIVED. SEE EMAR.
[2019-06-24 16:00] VITALS: BP 103/56
[2019-06-24 20:00] VITALS: BP 104/50
--- NOTE | 2019-06-24 23:05 | NUR ---
24 HR chart check completed.
[2019-06-25] VITALS: BP 129/69
--- NOTE | 2019-06-25 01:40 | NUR ---
PATIENT HAVING TROUBLE SLEEPING AND HAVING PAIN. RESTORIL AND DILAUDID GIVEN. WILL MONITOR AND REASSESS.
--- NOTE | 2019-06-25 02:30 | NUR ---
PATIENT RESTING, NO SIGNS OF DISTRESS. DILAUDID AND RESTORIL EFFECTIVE.
--- NOTE | 2019-06-25 05:37 | NUR ---
WHEN I AWOKE PATIENT FOR MORNING MEDS, SHE STATED SHE NEEDED A PAIN PILL. FOR HER BACK AND NECK. DILAUDID GIVEN WILL MONITOR AND REASSESS.
[2019-06-25 06:30] LABS: HEMOGLOBIN 8.3 g/dl (12.0-16.0); MEAN CELL VOLUME 101.5 fl (81.0-99.0); MEAN CORPUSCULAR HGB 31.2 pg (27.0-31.0); MEAN CORPUSCULAR HGB CONC 30.7 g/dl (33.0-37.0); MEAN PLATELET VOLUME 10.3 fl (9.6-12.3); NUCLEATED RED BLOOD CELL 0.2 % (0.0-0.0); PLATELET COUNT AUTOMATED 275 10*3/uL (130-400); RED BLOOD COUNT 2.66 10*6/uL (4.10-5.10); RED CELL DISTRI WIDTH 19.3 % (0-14.5); WHITE BLOOD COUNT 12.8 10*3/uL (4.8-10.8)
[2019-06-25 06:42] LABS: ALBUMIN 2.6 gm/dl (3.1-4.5); ALKALINE PHOSPHATASE 44 U/L (45-117); BUN 22 mg/dl (7-24); CHLORIDE 107 mmol/L (98-107); CREATININE 0.62 mg/dL (0.55-1.02); POTASSIUM 4.3 mmol/L (3.5-5.1); SGOT/AST 19 IU/L (3-35); SGPT/ALT 45 U/L (12-78); SODIUM 140 mmol/L (136-145); TOTAL PROTEIN 5.8 gm/dL (6.4-8.2)
[2019-06-25 07:41] LABS: PLATELET SUFFICIENCY NORMAL (NORMAL); POLYCHROMASIA SLIGHT; TOTAL CELLS COUNTED 100 #CELLS
[2019-06-25 07:42] LABS: SCHISTOCYTES FEW; STOMATOCYTE FEW; TARGET CELLS FEW
[2019-06-25 08:00] VITALS: BP 150/88
--- NOTE | 2019-06-25 08:30 | NUR ---
Replenishment Merchandising Associate in to see patient. No new needs or request at this time. She denies any home needs. When medically stable she will be discharged to home.
--- NOTE | 2019-06-25 10:05 | NUR ---
PT GIVEN 4 MG DILAUDID PO AND 10 MG VALIUM FOR C/O PAIN TO FACE AND NECK/ AND C/O ANXIETY. WILL MONITOR FOR EFFECTIVENESS. PT SITTING UP IN BED TALKING WITH VISITOR. CALL LIGHT IN REACH.
--- NOTE | 2019-06-25 11:05 | NUR ---
DILAUDID EFFECTIVE PER PT.
--- NOTE | 2019-06-25 15:57 | NUR ---
PT GIVEN NORCO 10-325 MG TAB FOR C/O GENERALIZED PAIN, RATING PAIN A "9". WILL MONITOR FOR EFFECTIVENESS. CALL LIGHT IN REACH.
[2019-06-25 16:00] VITALS: BP 120/65
--- NOTE | 2019-06-25 16:22 | NUR ---
DR BANKS NOTIFIED THAT PT LEFT POSTERIOR EAR IS BLEEDING DUE TO PT ITCHING A SCAB. A BANDAID HAS BEEN APPLIED, WILL CONTINUE TO MONITOR. PHYSICIAN ALSO GIVES OKAY FOR PT TO TAKE A SHOWER. WILL NOTIFY PT.
--- NOTE | 2019-06-25 16:57 | NUR ---
YUAN EFFECTIVE PER PT.
[2019-06-25 20:00] VITALS: BP 133/76
--- NOTE | 2019-06-25 20:28 | NUR ---
PATIENT REQUESTED A VALIUM, WAS GIVEN. WILL MONITOR AND REASSESS.
[2019-06-25 21:07] LABS: GONOCOCCUS BY NAA Negative (Negative)
[2019-06-26] VITALS: BP 117/69
--- NOTE | 2019-06-26 05:52 | NUR ---
DURING MORNING MED PASS, PATIENT WAS NOTED WITH BLOOD COVERED BED, GOWN, TRACH MASK. ALL STEMING FROM A SMALL SCAB ON BACK OF EAR WHICH WAS DRESSED WITH BANDAGE DURING THE NIGHT. PATIENT STATED THAT IT WASNT IN HER TRACH AND DIDNT WANT TO BE SUCTIONS, BUT NOTICALBE AMOUNTS OF BLOOD WAS COMING FROM TRACH WITH COUGH. PATIENT STATED SHE DOESNT USE SUCTION. AND THAT IT WAS OK. I SPOKE WITH DR. ALBERTO AND SHE ASKED IF WE HAD SILVER NITRATE ON THE FLOOR, WHICH WE DONT, SO FOR ME TO STOP THE BLEEDING WITH ANOTHER BANDAGE AND SEE WHAT COULD BE DONE WITH THE DAY TEAM. PATIENT IN SHOWER, WILL DRESS WHEN FINISHED.
[2019-06-26 06:42] LABS: BUN 21 mg/dl (7-24); CHLORIDE 106 mmol/L (98-107); CREATININE 0.66 mg/dL (0.55-1.02); POTASSIUM 4.4 mmol/L (3.5-5.1); SODIUM 141 mmol/L (136-145)
[2019-06-26 06:52] LABS: HEMATOCRIT 27.3 % (37.0-47.0); HEMOGLOBIN 8.2 g/dl (12.0-16.0); MEAN PLATELET VOLUME 10.3 fl (9.6-12.3); NUCLEATED RED BLOOD CELL 0.1 10*3/uL (0.0-0.0); NUCLEATED RED BLOOD CELL 1.2 % (0.0-0.0); PLATELET COUNT AUTOMATED 292 10*3/uL (130-400); RED BLOOD COUNT 2.73 10*6/uL (4.10-5.10); RED CELL DISTRI WIDTH 19.4 % (0-14.5); WHITE BLOOD COUNT 9.5 10*3/uL (4.8-10.8)
--- NOTE | 2019-06-26 07:47 | NUR ---
TOOK OVER CARE OF PT AT THIS TIME. PT RESTING IN BED WITH EYES CLOSED. PT CURRENTLY RECEIVING BREATHING TREATMENT THROUGH TRACH SITE. RESPIRATIONS EASY AND UNLABORED. PT LEFT EAR IS COVERED WITH BAND AID, BLEEDING STILL VISIBLE AND WILL REPLACE BAND AID WITH NEW ONE. WILL NOTIFY HOSPITALIST OF LEFT EAR BLEEDING AND ASK FOR ORDERS REGARDING EAR. PT HAS NO OTHER S/S OF DISTRESS. DUAGHTER SLEEPING IN CHAIR IN ROOM. WHITE BOARD UPDATED. HOB ELEVATED. ALL SAFETY MEASURES IN PLACE. CALL LIGHT IN REACH.
[2019-06-26 07:52] LABS: PLATELET SUFFICIENCY NORMAL (NORMAL); POLYCHROMASIA SLIGHT; TOTAL CELLS COUNTED 100 #CELLS
[2019-06-26 08:22] VITALS: BP 156/80
[2019-06-26 12:00] VITALS: BP 119/66
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
[2019-06-26 16:00] VITALS: BP 122/73
[2019-06-26 20:00] VITALS: BP 110/73
--- NOTE | 2019-06-26 21:15 | NUR ---
PATIENT REQUESTING DILAUDID AND VALIUM FOR PAIN. ADMINISTERED PRESCRIBED. WILL MONITOR FOR EFFECTIVENESS.
--- NOTE | 2019-06-26 22:30 | NUR ---
PATIENT RESTING WITH EYES CLOSED AT THIS TIME. WILL MONITOR.
[2019-06-27] VITALS: BP 118/70
--- NOTE | 2019-06-27 02:52 | NUR ---
PATIENT REQUESTING MEDICATION FOR PAIN. PO DILAUDID ADMINISTERED PRESCRIBED. WILL MONITOR FOR EFFECTIVENESS.
[2019-06-27 06:28] LABS: HEMATOCRIT 26.3 % (37.0-47.0); HEMOGLOBIN 7.9 g/dl (12.0-16.0); MEAN CELL VOLUME 101.2 fl (81.0-99.0); MEAN CORPUSCULAR HGB 30.4 pg (27.0-31.0); MEAN PLATELET VOLUME 9.7 fl (9.6-12.3); NUCLEATED RED BLOOD CELL 0.1 10*3/uL (0.0-0.0); NUCLEATED RED BLOOD CELL 1.7 % (0.0-0.0); PLATELET COUNT AUTOMATED 303 10*3/uL (130-400); RED CELL DISTRI WIDTH 19.9 % (0-14.5); WHITE BLOOD COUNT 8.2 10*3/uL (4.8-10.8)
--- NOTE | 2019-06-27 06:45 | NUR ---
PATIENT REQUESTING VALIUM AND DILAUDID FOR PAIN AT THIS TIME. ADMINISTERED PRESCRIBED. WILL MONITOR FOR EFFECTIVENESS.
[2019-06-27 07:08] LABS: TOTAL CELLS COUNTED 100 #CELLS
[2019-06-27 07:09] LABS: PLATELET SUFFICIENCY NORMAL (NORMAL); POLYCHROMASIA SLIGHT
[2019-06-27 08:00] VITALS: BP 126/68
--- NOTE | 2019-06-27 10:50 | NUR ---
24 HR CHART CHECK COMPLETE.
[2019-06-27 12:00] VITALS: BP 120/65
[2019-06-27] MEDS ORDERED: DOXYCYCLINE100 M3 PO (14:43)
[2019-06-27] MEDS ORDERED: PREDNISONE10 MG PO (14:43)
[2019-06-27] MEDS ORDERED: METOPROLOL TART50 M1 PO (14:43)
[2019-06-27] MEDS ORDERED: IMDUR SA30 MG PO (14:43)
[2019-06-27] MEDS ORDERED: ENOXAPARIN120 MG/0.2 SC (14:43)
--- NOTE | 2019-06-27 18:03 | NUR ---
Discharge instructions reviewed with patient/family. Patient receptive and verbalizes understanding. Follow-up care arranged. Written instructions given to patient/family. PATIENT REFUSING DISCHARGE PHOTOS OF WOUNDS AT THIS TIME. LIANE MADSEN
[2019-07-01 19:09] LABS: HIV 2 AB Negative (Negative); INTERPRETATION Negative (.)
== END 2019-06-27 18:03 | disposition home or self-care (01) | DRG 871 ==
LOC: ED 12:04 → 4E 14:29 → EDHOLD 14:29 → 4E 14:43
PROVIDERS: Emergency Medicine; Hospitalist; Internal Medicine; ADMIT Internal Medicine
DX: A40.8 Other streptococcal sepsis (principal); J18.9 Pneumonia, unspecified organism; E43 Unspecified severe protein-calorie malnutrition; I26.99 Other pulmonary embolism without acute cor pulmonale; L03.211 Cellulitis of face; C22.9 Malignant neoplasm of liver, not specified as primary or secondary; C34.90 Malignant neoplasm of unspecified part of unspecified bronchus or lung; J44.1 Chronic obstructive pulmonary disease with (acute) exacerbation; J44.0 Chronic obstructive pulmonary disease with (acute) lower respiratory infection; J96.11 Chronic respiratory failure with hypoxia; I82.413 Acute embolism and thrombosis of femoral vein, bilateral; Z68.42 Body mass index [BMI] 45.0-49.9, adult; C79.89 Secondary malignant neoplasm of other specified sites; L03.116 Cellulitis of left lower limb; L03.115 Cellulitis of right lower limb; D64.9 Anemia, unspecified; R82.71 Bacteriuria; B00.9 Herpesviral infection, unspecified; E11.65 Type 2 diabetes mellitus with hyperglycemia; G25.81 Restless legs syndrome; C32.9 Malignant neoplasm of larynx, unspecified; R07.9 Chest pain, unspecified; I50.9 Heart failure, unspecified; I11.0 Hypertensive heart disease with heart failure; F31.9 Bipolar disorder, unspecified; G89.29 Other chronic pain; K21.9 Gastro-esophageal reflux disease without esophagitis; E78.00 Pure hypercholesterolemia, unspecified; E66.01 Morbid (severe) obesity due to excess calories; M19.90 Unspecified osteoarthritis, unspecified site; G47.33 Obstructive sleep apnea (adult) (pediatric); M06.9 Rheumatoid arthritis, unspecified; C76.0 Malignant neoplasm of head, face and neck; C14.0 Malignant neoplasm of pharynx, unspecified; F41.1 Generalized anxiety disorder; J20.9 Acute bronchitis, unspecified; E78.5 Hyperlipidemia, unspecified; A64 Unspecified sexually transmitted disease; Z91.041 Radiographic dye allergy status; Z88.8 Allergy status to other drugs, medicaments and biological substances; Z79.899 Other long term (current) drug therapy; Z79.82 Long term (current) use of aspirin; Z79.84 Long term (current) use of oral hypoglycemic drugs; Z90.49 Acquired absence of other specified parts of digestive tract; Z98.51 Tubal ligation status; Z93.0 Tracheostomy status; Z98.890 Other specified postprocedural states; Z87.01 Personal history of pneumonia (recurrent); Z98.891 History of uterine scar from previous surgery; Z82.49 Family history of ischemic heart disease and other diseases of the circulatory system; Z83.3 Family history of diabetes mellitus; Z84.89 Family history of other specified conditions; Z90.02 Acquired absence of larynx; Z92.21 Personal history of antineoplastic chemotherapy

== ENCOUNTER → 2019-07-09 | Outpatient (CLI) | payer OTHER ==
[~2019-07-09] MED LIST changes: +ARTIFICIAL TEA1 EACH OP; +BACITRACIN28.4 GM T; +ENOXAPARIN120 MG/0.2 SC; +IMDUR SA30 MG PO; +METOPROLOL TART50 M1 PO; +NYST SUSP PO
[2019-07-09 15:13] LABS: BILIRUBIN 1+ (NEGATIVE); BLOOD 2+ (NEGATIVE); CLARITY CLOUDY (CLEAR); COLOR YELLOW (YELLOW); GLUCOSE NEGATIVE (NEGATIVE); KETONE NEGATIVE (NEGATIVE); LEUKO ESTERASE 2+ (NEGATIVE); NITRITE POSITIVE (NEGATIVE); SPECIFIC GRAVITY 1.025 (1.005-1.030)
[2019-07-09 15:31] LABS: BACTERIA 4+; WBC TNTC wbc/hpf (0-5)
== END | disposition home or self-care (01) ==
LOC: LAB 14:50
PROVIDERS: Family Medicine
DX: N30.00 Acute cystitis without hematuria (principal)

== ENCOUNTER → 2019-11-03 | Day surgery (SDC) | payer OTHER ==
[~2019-11-03] MED LIST changes: +GLUCERNA 1.5 C237 ML PEG; +METHOTREXA25 MG/1 M6 IM
[2019-11-03 07:45] VITALS: BP 108/73
[2019-11-03 09:12] VITALS: BP 108/74
[2019-11-03 09:27] VITALS: BP 108/67
[2019-11-03 09:42] VITALS: BP 104/68
== END | disposition home or self-care (01) ==
LOC: SDC 11-02 12:30
DX: R13.10 Dysphagia, unspecified (principal); I10 Essential (primary) hypertension; J44.9 Chronic obstructive pulmonary disease, unspecified; E11.9 Type 2 diabetes mellitus without complications; K21.9 Gastro-esophageal reflux disease without esophagitis; F41.9 Anxiety disorder, unspecified; F32.9 Major depressive disorder, single episode, unspecified; Z98.890 Other specified postprocedural states; Z79.899 Other long term (current) drug therapy; Z83.3 Family history of diabetes mellitus

== ENCOUNTER 2019-11-12 14:40 | Inpatient (IN) | payer OTHER ==
[~2019-11-12] VITALS: Ht 154.9 cm; Wt 96.3 kg
[2019-11-12 14:45] VITALS: BP 86/71; BP 90/67
--- NOTE | 2019-11-12 15:38 | NUR ---
PATIENT STATES UNABLE TO PROVIDE URINE SAMPLE AT THIS ITME
[2019-11-12 15:42] LABS: HEMATOCRIT 31.3 % (37.0-47.0); HEMOGLOBIN 9.9 g/dl (12.0-16.0); MEAN CELL VOLUME 92.3 fl (81.0-99.0); MEAN CORPUSCULAR HGB 29.2 pg (27.0-31.0); MEAN CORPUSCULAR HGB CONC 31.6 g/dl (33.0-37.0); MEAN PLATELET VOLUME 10.6 fl (9.6-12.3); PLATELET COUNT AUTOMATED 403 10*3/uL (130-400); RED BLOOD COUNT 3.39 10*6/uL (4.10-5.10); WHITE BLOOD COUNT 12.8 10*3/uL (4.8-10.8)
[2019-11-12 15:53] LABS: ACT PARTIAL THROMBO TIME 47.2 SECONDS (20.0-32.1)
[2019-11-12 16:04] LABS: ALBUMIN 2.1 gm/dl (3.1-4.5); BUN 22 mg/dl (7-24); CHLORIDE 100 mmol/L (98-107); CREATININE 1.39 mg/dL (0.55-1.02); LIPASE 64 U/L (73-393); POTASSIUM 3.9 mmol/L (3.5-5.1); SGOT/AST 258 IU/L (3-35); SGPT/ALT 139 U/L (12-78); SODIUM 133 mmol/L (136-145); TOTAL PROTEIN 6.2 gm/dL (6.4-8.2)
--- NOTE | 2019-11-12 16:05 | NUR ---
PATIENT STATES PAIN MEDICATION INEFFECTIVE. SARAH WASHINGTON DNP AWARE
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
[2019-11-12 16:12] LABS: TOTAL CELLS COUNTED 100 #CELLS
[2019-11-12 16:13] LABS: BURR CELLS FEW; PLATELET SUFFICIENCY NORMAL (NORMAL)
[2019-11-12 16:17] LABS: ALKALINE PHOSPHATASE 1005 U/L (45-117); TROPONIN I < 0.015 ng/ml (<0.045)
--- NOTE | 2019-11-12 17:16 | NUR ---
PATIENT REPORTS IMPROVEMENT IN PAIN. STILL REMAINS UNABLE TO PROVIDE A URINE SAMPLE.
[2019-11-12 19:11] LABS: BILIRUBIN 2+ (NEGATIVE); BLOOD NEGATIVE (NEGATIVE); CLARITY SL CLOUDY (CLEAR); COLOR YELLOW (YELLOW); GLUCOSE NEGATIVE (NEGATIVE); KETONE NEGATIVE (NEGATIVE); LEUKO ESTERASE NEGATIVE (NEGATIVE); NITRITE NEGATIVE (NEGATIVE); PH 5.5 (5.0-9.0)
[2019-11-12 19:15] VITALS: BP 92/59
[2019-11-12 19:47] LABS: FINE GRANULAR CAST 0-2
[2019-11-12 19:51] VITALS: BP 95/55
[2019-11-12 22:45] VITALS: BP 101/59
--- NOTE | 2019-11-12 22:45 | NUR ---
A 59, admitted to 5E, under the services of MELI Fernández DO with a diagnosis of LISSET, PEG TUBE MALFUNCTION. Chief complaint is PEG TUBE MALFUNCTION. Patient arrived via bed from ER. Monitor applied. Initial assessment completed. Vital signs taken and recorded. MELI FERNÁNDEZ DO notified of admission to the unit. Orders received. See assessment for past medical history, medications and allergies. Patient and/or family oriented to unit. [address] visitation policy reviewed. Clothing/patient valuable form completed. LIANE MADSEN
--- NOTE | 2019-11-12 23:14 | NUR ---
PT MEDICATED WITH MORPHINE FOR C/O PAIN ALL OVER RATED A 10/10. WILL MONITOR FOR EFFECTIVENESS.
--- NOTE | 2019-11-12 23:25 | NUR ---
PT STATES THAT SHE DOES NOT WANT WOUNDS EVALUATED AT THIS TIME DUE TO HER BEING IN TOO MUCH PAIN.
[2019-11-13] VITALS (8 sets, daily range): BP systolic 82–139; BP diastolic 48–61
--- NOTE | 2019-11-13 00:23 | NUR ---
Patient set up on 40% SAMI, Spo2 97%
[2019-11-13 06:39] LABS: HEMOGLOBIN 8.2 g/dl (12.0-16.0); MEAN CELL VOLUME 93.2 fl (81.0-99.0); MEAN CORPUSCULAR HGB 29.4 pg (27.0-31.0); MEAN CORPUSCULAR HGB CONC 31.5 g/dl (33.0-37.0); MEAN PLATELET VOLUME 10.3 fl (9.6-12.3); PLATELET COUNT AUTOMATED 393 10*3/uL (130-400); RED BLOOD COUNT 2.79 10*6/uL (4.10-5.10); RED CELL DISTRI WIDTH 19.7 % (0-14.5); WHITE BLOOD COUNT 9.1 10*3/uL (4.8-10.8)
[2019-11-13 06:53] LABS: ALBUMIN 1.7 gm/dl (3.1-4.5); BUN 18 mg/dl (7-24); CHLORIDE 108 mmol/L (98-107); CREATININE 1.07 mg/dL (0.55-1.02); PHOSPHOROUS 2.4 mg/dL (2.5-4.9); POTASSIUM 3.6 mmol/L (3.5-5.1); SGOT/AST 193 IU/L (3-35); SGPT/ALT 110 U/L (12-78); SODIUM 139 mmol/L (136-145); TOTAL PROTEIN 5.1 gm/dL (6.4-8.2)
[2019-11-13 07:00] LABS: ALKALINE PHOSPHATASE 873 U/L (45-117); FREE T4 0.92 ng/dl (0.76-1.46)
[2019-11-13 07:11] LABS: OVALOCYTES FEW; PLATELET SUFFICIENCY NORMAL (NORMAL); POLYCHROMASIA SLIGHT; TOTAL CELLS COUNTED 100 #CELLS
[2019-11-13 07:36] LABS: VITAMIN D, 25-HYDROXY 47.7 ng/mL (30-100)
--- NOTE | 2019-11-13 11:09 | NUR ---
ANSWERING SERVICE WAS NOTIFIED OF DR. RONALD ESPARZA. RESPONSE OF NOTIFICATION WAS OK I WILL GET THIS TO HER.. NAOMI HERZOG
--- NOTE | 2019-11-13 11:43 | NUR ---
PT SHIVERING, REQUESTING MORE BLANKETS AND STATING SHE CAN'T GET WARM. TEMP 99.[address] MARCUS NOTIFIED, SHE STATED SHE WILL BE UP TO SEE HER.
--- NOTE | 2019-11-13 11:46 | NUR ---
SPOKE TO DR TRUONG TO MAKE SURE CONSULT WAS CALLED AND HE STATED HE IS AWARE AND WILL BE HERE IN A COUPLE OF HOURS TO TAKE OUT PEG TUBE.
--- NOTE | 2019-11-13 12:10 | NUR ---
TYLENOL RECTAL SUPPOSITORY GIVEN AT THIS TIME PER DR REQUEST. WILL CONT TO MONITOR. CALL LIGHT IN REACH.
--- NOTE | 2019-11-13 13:15 | NUR ---
PT LEFT FLOOR FOR SURGERY.
--- NOTE | 2019-11-13 14:40 | NUR ---
PT RETURNED FROM SURGERY.
--- NOTE | 2019-11-13 14:55 | NUR ---
Attempted to meet with pt and her daughter 2x this AM. Both were sleeping soundly and would not wake when this VIDEO EFFECTS EDITOR-S spoke their names. Will attempt to meet with pt at another time.
--- NOTE | 2019-11-13 16:13 | NUR ---
PT TOOK A DRINK OF WATER AND IT STARTED COMING OUT OF HER PEG TUBE SITE. DR TRUONG STATED TO MAKE PT NPO AND SHE MAY NEED TPN. DR MARCUS PRESENT. BP 82/[address] MARCUS NOTIFIED AND STATED TO GIVE RECTAL SUPPOSITORY.
--- NOTE | 2019-11-13 16:15 | NUR ---
PER DR MARCUS GIVE 2L SEPSIS IVF BOLUS THEN RUN IVF AT 125/HR.
--- NOTE | 2019-11-13 17:45 | NUR ---
CALLED TO ROOM BECAUSE LIQUID WAS COMING OUT OF PEG TUBE SITE AGAIN AND PT/DAUGHTER WAS CONCERNED. ENTERED ROOM AND PT FOUND TO HAVE PURPLE/RED LIQUID ON GOWN AND BLANKETS. DAUGHTER ADMITTED TO GIVING PT GRAPE JUICE AFTER I FULLY INFORMED THEM THAT SHE WAS MADE NPO AND NOT ALLOWED ANYTHING TO EAT OR DRINK. AGAIN REINFORCED NPO STATUS.
--- NOTE | 2019-11-13 18:22 | NUR ---
COOLING BLANKET OFF BUT STILL MONITORING RECTAL TEMP.
--- NOTE | 2019-11-13 18:55 | NUR ---
SAMI CHECKED, WATER BOTTLE OK. PATIENT ON 40%, SPO2 98%. TRACH CARE KITS AT BEDSIDE PER FAMILY REQUEST.
--- NOTE | 2019-11-13 19:15 | NUR ---
PT IS ASLEEP IN BED. SHE IS LETHARGIC BUT AROUSABLE AND C/O PAIN. PER PATIENTS DAUGHTER, "SHE IS TIRED FROM HER PROCEDURE." PTS PURITAN MASK IS LAYING NEXT TO PATIENT, PULSE OX 90%. MASK REAPPLIED WITH A PULSE OX OF 95%. TPN IS INITIATED AND INFUSING PER ORDER. BED IS LOW, CALL LIGHT WITHIN REACH. WILL CONTINUE TO MONITOR.
--- NOTE | 2019-11-13 19:21 | NUR ---
PT MEDICATED WITH PRN MORPHINE FOR C/O PAIN RATED A 10/10. WILL MONITOR FOR EFFECTIVNESS.
[2019-11-13] MEDS ORDERED: VANCO 1.51.5 GM/250 IV (23:17)
[2019-11-14] VITALS: BP 94/70
--- NOTE | 2019-11-14 00:56 | NUR ---
PT NOTED TO HAVE TEMPANIC TEMPERATURE OF 100.8 IT WAS EXPLAINED TO THE PT THAT SHE MAY UTILIZE THE COOLING BLANKET OR RECTAL TYLENOL TO BRING TEMPERATURE DOWN. PATIENT REFUSED BOTH AT THIS TIME. WILL CONTINUE TO MONITOR.
[2019-11-14 06:45] LABS: HEMATOCRIT 26.9 % (37.0-47.0); HEMOGLOBIN 8.6 g/dl (12.0-16.0); MEAN CELL VOLUME 92.1 fl (81.0-99.0); MEAN CORPUSCULAR HGB 29.5 pg (27.0-31.0); MEAN PLATELET VOLUME 10.2 fl (9.6-12.3); PLATELET COUNT AUTOMATED 338 10*3/uL (130-400); RED BLOOD COUNT 2.92 10*6/uL (4.10-5.10); RED CELL DISTRI WIDTH 19.9 % (0-14.5); WHITE BLOOD COUNT 9.5 10*3/uL (4.8-10.8)
[2019-11-14 07:00] LABS: CREATININE 1.4 mg/dL (0.55-1.02); POTASSIUM 3.2 mmol/L (3.5-5.1)
[2019-11-14 07:07] LABS: PHOSPHOROUS 1.1 mg/dL (2.5-4.9)
[2019-11-14 07:17] LABS: PLATELET SUFFICIENCY NORMAL (NORMAL); TOTAL CELLS COUNTED 100 #CELLS
[2019-11-14 08:00] VITALS: BP 84/48
--- NOTE | 2019-11-14 08:54 | NUR ---
PT COMPLAIN OF PAIN, AWARE THAT BLOOD PRESSURE LOW AND PAIN MEDICATION WAS RECENTLY GIVEN, NOT DUE AT THIS TIME. DR. TRUONG IN TO SEE PATIENT, OKAY WITH PATIENT HAVING SMALL AMOUNT OF ICE CHIPS. PT REMINDED BY DR. TRUONG AND NURSE THAT SHE IS NOT TO HAVE ANYTHING TO EAT OR DRINK - ICE CHIPS NOW ONLY. PT HAS NO OTHER COMPLAINTS AT THIS TIME. DAUGHTER ASLEEP IN CHAIR AT BEDSIDE.
--- NOTE | 2019-11-14 09:01 | NUR ---
DRESSING CHANGED TO PEG TUBE SITE, DARK MODERATE AMOUNT OF DRAINAGE. DR. TRUONG MADE AWARE. SURPREP TO SURROUNDING INTACT SKIN, 4Z4 AND ABD APPLIED, SECURED WITH PAPER TAPE
--- NOTE | 2019-11-14 10:25 | NUR ---
Met with patient and her daughter Jaciel Sharer who is also pt's DPOAHC. Per Jaciel, pt has DME in place: walker, wheelchair, hospital bed, and BSC. Pt is current with [facility] with the plan of services resuming when pt is discharged. Jaciel lives with pt and provides additional support for pt. Jaciel stated that sees no additional needs at this time.
--- NOTE | 2019-11-14 10:37 | NUR ---
PT SLEEPING, NO DISTRESS NOTED. AUDIBLE WHEEZING NOTED. TRACH MASK ON PROPERLY.
[2019-11-14 12:00] VITALS: BP 90/55
--- NOTE | 2019-11-14 12:23 | NUR ---
pt states pain 8/10 abdomen, morphine given. will monitor for effectiveness. pt coughing up yellow thick sputum, daughter did trach care. pt does not request to be suctioned at this time. dressing to abdomial site changed, dark brown bile drainage noted
--- NOTE | 2019-11-14 13:10 | NUR ---
pt states morphine effective
[2019-11-14 16:00] VITALS: BP 91/61
--- NOTE | 2019-11-14 16:00 | NUR ---
ASSESSMENT COMPLETE, ABDOMINAL DRESSING CHANGED, MODERATE AMOUNT OF DRAINAGE. PT STATES DRAINAGE MACKAY. ENCOURAGE PATIENT TO CHANGE DRESSING FRQUENTLY.
--- NOTE | 2019-11-14 16:13 | NUR ---
PT COMPLAIN OF ABDOMINAL PAIN, 06/05. MORPHINE GIVEN. WILL MONITOR FOR EFFECTIVENESS
--- NOTE | 2019-11-14 19:30 | NUR ---
PATIENT AWAKE,A&Ox3. PATIENT C/O OF ABDOMINAL PAIN AT THIS TIME. INFORMED PATIENT ON WHEN PAIN MEDICATION IS DUE. ABDOMINAL DRESSING DRY AND INTACT. PATIENT STATES THAT [employer] SERVICE WORKER JUST CHANGED THE DRESSING WHEN SHE ASSESSED THE WOUND. PATIENT HAS NO OTHER COMPLAINTS AT THIS TIME. LIPOSYN & TPN RUNNING PRESCRIBED. DAUGHTER AT SIDE OF BED. CALL LIGHT IN REACH. WILL MONITOR.
[2019-11-14 20:00] VITALS: BP 80/42
--- NOTE | 2019-11-14 20:11 | NUR ---
PATIENT REQUESTING PAIN MEDICATION FOR ABDOMINAL PAIN RATED 8/10 ON 0/10 SCALE. MORPHINE ADMINISTERED PRESCRIBED. WILL MONITOR FOR EFFECTIVENESS.
--- NOTE | 2019-11-14 21:11 | NUR ---
PATIENT STATES MORPHINE EFFECTIVE FOR ABDOMINAL PAIN. WILL MONITOR FOR EFFECTIVENESS.
--- NOTE | 2019-11-14 23:30 | NUR ---
PT RESTING IN BED. VOICES NO CONCERNS AT THIS TIME. RESPS EASY AND NON LABORED. NO S/S OF DISTRESS NOTED. OXYGEN INTACT. WHITE BOARD UPDATED. CALL LIGHT WITHIN REACH
--- NOTE | 2019-11-14 23:51 | NUR ---
PT MEDICATED WITH RECTAL TYLENOL FOR TEMP OF 101.7. WILL CONTINUE TO MONITOR
--- NOTE | 2019-11-14 23:53 | NUR ---
PT COMPLAINS OF 7/10 ABD PAIN. MEDICATED PER ORDER. WILL MONITOR FOR RELIEF. VOICES NO OTHER CONCERNS AT THIS TIME. RESPS EASY AND NON LABORED. CALL LIGHT WITHIN REACH
[2019-11-15] VITALS: BP 98/60
--- NOTE | 2019-11-15 01:12 | NUR ---
24 HR chart check completed.
--- NOTE | 2019-11-15 01:18 | NUR ---
MORPHINE EFFECTIVE PER PT
--- NOTE | 2019-11-15 02:00 | NUR ---
PTS TEMPERATURE IS NOW 99.2 ORALLY. VOICES NO CONERNS. CALL LIGHT WITHIN REACH
--- NOTE | 2019-11-15 05:49 | NUR ---
PT COMPLAINS OF 8/10 ABDOMINAL PAIN. MEDICATED PER ORDER. WILL MONITOR FOR RELIEF. VOICES NO OTHER CONCERNS AT THIS TIME. RESTING IN BED. CALL LIGHT WITHIN REACH
[2019-11-15 06:23] LABS: CREATININE 1.21 mg/dL (0.55-1.02); PHOSPHOROUS 2.3 mg/dL (2.5-4.9); POTASSIUM 3.5 mmol/L (3.5-5.1)
[2019-11-15 06:39] LABS: HEMATOCRIT 24.9 % (37.0-47.0); HEMOGLOBIN 7.8 g/dl (12.0-16.0); MEAN CELL VOLUME 91.9 fl (81.0-99.0); MEAN CORPUSCULAR HGB 28.8 pg (27.0-31.0); MEAN CORPUSCULAR HGB CONC 31.3 g/dl (33.0-37.0); MEAN PLATELET VOLUME 10.8 fl (9.6-12.3); PLATELET COUNT AUTOMATED 288 10*3/uL (130-400); RED BLOOD COUNT 2.71 10*6/uL (4.10-5.10); RED CELL DISTRI WIDTH 20.3 % (0-14.5); WHITE BLOOD COUNT 10.9 10*3/uL (4.8-10.8)
--- NOTE | 2019-11-15 06:58 | NUR ---
MORPHINE EFFECTIVE PER PT
--- NOTE | 2019-11-15 07:34 | NUR ---
CALLED AND NOTIFIED DR. ALBERTO OF POSTITIVE BLOOD CULTURE SHOWING E.COLI FROM 11/12.
[2019-11-15 07:36] LABS: BASOPHILS 1 % (0-1); PLATELET SUFFICIENCY NORMAL (NORMAL); POLYCHROMASIA SLIGHT; TARGET CELLS FEW; TOTAL CELLS COUNTED 100 #CELLS
[2019-11-15 07:37] LABS: DOHLE BODIES FEW; SCHISTOCYTES FEW
[2019-11-15 07:38] LABS: TOXIC GRANULATION SLIGHT; VACUOLATION OF NEUTROPHILS SLIGHT
--- NOTE | 2019-11-15 07:57 | NUR ---
PHYSICAL THERAPY Screen received pt from home with family support/care, please consult PT if pt's functional status declines from baseline, thank you. Migdalia Guajardo PT
[2019-11-15 08:00] VITALS: BP 107/57
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
--- NOTE | 2019-11-15 10:08 | NUR ---
Dr. oGnzalez notified of wound care recommendations.
--- NOTE | 2019-11-15 11:11 | NUR ---
Nutritional Support Services Note: Pt admitted with malfuncitoning Peg tube,cellulitis, sepsis, CA with mets. She had been receiving chemo. Ht.5' Wt.213#. Peg tube was removed she currently receives TPN Standard Peripheral formula with 20% liposyns. PPN is providing pt with 840cal. Will follow for advancement. Lorene Roper Rdn Ld
--- NOTE | 2019-11-15 11:49 | NUR ---
PRN MORPHINE GIVEN FOR GENERALIZED PAIN. WILL CONTINUE TO MONITOR AND REASSESS EFFECTIVENESS OF MEDICATION.
[2019-11-15 12:00] VITALS: BP 82/48
--- NOTE | 2019-11-15 12:00 | NUR ---
Reprint Sorter in to see patient. She is sitting up in her bed. Daughter at bedside. Discussed short term SNF and they refuse. Discussed home health care services and they currently have [facility] and would like to resume those services upon discharge. Daughter states the PEG tube is out and patient doesn't want it replaced. Daughter states patient is able to drink carnation and the occasional chicken from [employer] in [place]. When medically stable she will be discharged to home with the resumption of her [facility] services.
--- NOTE | 2019-11-15 12:51 | NUR ---
PALLIATIVE CARE CONSULT COMPLETED.
--- NOTE | 2019-11-15 12:56 | NUR ---
FOOD SERVICE WORKER faxed [facility]. -MONE StringerW
--- NOTE | 2019-11-15 15:35 | NUR ---
CHANGED PT'S DRESSING ON ABDOMEN.
[2019-11-15 16:00] VITALS: BP 86/56
--- NOTE | 2019-11-15 16:30 | NUR ---
PRN MORPHINE GIVEN FOR A PAIN 07/06. WILL REASSESS
--- NOTE | 2019-11-15 17:00 | NUR ---
24 HR chart check completed.
[2019-11-15 20:00] VITALS: BP 116/69
--- NOTE | 2019-11-15 21:03 | NUR ---
PATIENT MEDICATED WITH TYLENOL SUPPOSITORY AT THIS TIME FOR TEMP OF 100.1
--- NOTE | 2019-11-15 21:30 | NUR ---
DRESSING D/I AT THIS TIME. ATTEMPTED TO CHANGE DRESSING AND PATIENT REQUESTED TO CHANGE LATER.
[2019-11-16] VITALS (11 sets, daily range): BP systolic 78–136; BP diastolic 48–103
[2019-11-16 06:43] LABS: HEMATOCRIT 22.7 % (37.0-47.0); HEMOGLOBIN 7.2 g/dl (12.0-16.0); MEAN CELL VOLUME 91.9 fl (81.0-99.0); MEAN CORPUSCULAR HGB 29.1 pg (27.0-31.0); MEAN CORPUSCULAR HGB CONC 31.7 g/dl (33.0-37.0); MEAN PLATELET VOLUME 11.3 fl (9.6-12.3); PLATELET COUNT AUTOMATED 209 10*3/uL (130-400); RED BLOOD COUNT 2.47 10*6/uL (4.10-5.10); RED CELL DISTRI WIDTH 20.6 % (0-14.5)
[2019-11-16 07:07] LABS: PLATELET SUFFICIENCY NORMAL (NORMAL); POLYCHROMASIA SLIGHT; TOTAL CELLS COUNTED 100 #CELLS
[2019-11-16 07:19] LABS: ALBUMIN 1.4 gm/dl (3.1-4.5); PHOSPHOROUS 3.7 mg/dL (2.5-4.9); POTASSIUM 3.9 mmol/L (3.5-5.1)
[2019-11-16 07:24] LABS: CREATININE 1.28 mg/dL (0.55-1.02); TOTAL PROTEIN 4.9 gm/dL (6.4-8.2)
--- NOTE | 2019-11-16 08:48 | NUR ---
Director On Air in to see patient. Discussed hospice and palliative care. When provided with a list of agencies they chose [facility]. adult protective caseworker notified.
--- NOTE | 2019-11-16 08:52 | NUR ---
SPEAR FISHER faxed referral to [facility]. -Holly Welch,SPEAR FISHER
--- NOTE | 2019-11-16 08:54 | NUR ---
[facility] will be here between 10am/10:30am. TRACER CLERK notified Work Glass Installer Technician. -BRYSON Stringer
--- NOTE | 2019-11-16 10:05 | NUR ---
MEDICATED WITH PRN IV MORPHINE FOR ABDOMINAL PEG REMOVAL SITE PAIN.
--- NOTE | 2019-11-16 10:42 | NUR ---
HOSPICE NURSE IN TO SEE PATIENT AND DAUGHTER FOR CONSULTATION.
--- NOTE | 2019-11-16 11:21 | NUR ---
MORPHINE GIVEN EARLIER NOT EFFECTIVE, PER PATIENT.
--- NOTE | 2019-11-16 14:09 | NUR ---
MEDICATED WITH PRN IV MORPHINE FOR PEG TUBE REMOVAL SITE AREA PAIN.
--- NOTE | 2019-11-16 17:15 | NUR ---
MEDICATED WITH PRN IV MORPHINE FOR PEG REMOVAL SITE PAIN.
--- NOTE | 2019-11-16 20:27 | NUR ---
MORPHINE GIVEN PER ORDER FOR PAIN RATED "8" PER PT. SEE MAR.
--- NOTE | 2019-11-16 21:15 | NUR ---
MORPHINE EFFECTIVE FOR OLD PEG REMOVAL PAIN. PER PT.
--- NOTE | 2019-11-16 23:26 | NUR ---
PRN MORPHINE GIVEN PER ORDER FOR ABD PEG REMOVAL AREA. SEE MAR.
[2019-11-17] VITALS: BP 92/60
--- NOTE | 2019-11-17 00:25 | NUR ---
MORPHINE EFFECTIVE FOR PAIN PER PT.
--- NOTE | 2019-11-17 01:02 | NUR ---
24 HR chart check completed.
--- NOTE | 2019-11-17 03:16 | NUR ---
MORPHINE GIVEN PER ORDER FOR PAIN FROM PEGTUBE AREA RATED "6". SEE MAR.
--- NOTE | 2019-11-17 03:27 | NUR ---
11-16-19 18:45 TURNED PURITAN TO FiO2 70% FROM 40% DUE TO SpO2 OF 89% SpO2 NOW 96% RN NOTIFIED. PT IS RECIVING UNIT OF BLOOD.
--- NOTE | 2019-11-17 04:10 | NUR ---
PATIENT RESTING WELL. MORPHINE EFFECTIVE FOR PAIN.
[2019-11-17 06:26] LABS: HEMATOCRIT 27.6 % (37.0-47.0); MEAN CELL VOLUME 89.9 fl (81.0-99.0); MEAN CORPUSCULAR HGB 29.3 pg (27.0-31.0); MEAN CORPUSCULAR HGB CONC 32.6 g/dl (33.0-37.0); MEAN PLATELET VOLUME 11.8 fl (9.6-12.3); PLATELET COUNT AUTOMATED 200 10*3/uL (130-400); RED BLOOD COUNT 3.07 10*6/uL (4.10-5.10); RED CELL DISTRI WIDTH 20.6 % (0-14.5)
[2019-11-17 06:30] LABS: ALBUMIN 1.5 gm/dl (3.1-4.5); CREATININE 1.14 mg/dL (0.55-1.02); PHOSPHOROUS 3.9 mg/dL (2.5-4.9); POTASSIUM 4.4 mmol/L (3.5-5.1)
[2019-11-17 06:31] LABS: TOTAL PROTEIN 5.4 gm/dL (6.4-8.2)
--- NOTE | 2019-11-17 06:52 | NUR ---
CT CALLED AND WANTED PATIENT FOR SCAN. CALLED RESP. TO HAVE PATIENT O2 CHANGED FROM [facility] FOR TRANSPORT. THEY WILL BE UP TO SWITCH HER OVER.
--- NOTE | 2019-11-17 07:30 | NUR ---
PT TO CT VIA WHEELCHAIR. CONDITON STABLE. ELIZABETH BREEN, SPNRCC
[2019-11-17 07:32] LABS: OVALOCYTES FEW; PLATELET SUFFICIENCY NORMAL (NORMAL); POLYCHROMASIA SLIGHT; ROULEAUX SLIGHT; TARGET CELLS FEW; TOTAL CELLS COUNTED 100 #CELLS; TOXIC GRANULATION SLIGHT
[2019-11-17 07:33] LABS: SCHISTOCYTES FEW
--- NOTE | 2019-11-17 07:37 | NUR ---
Patient is going to need TPN for [address] M[address]ER asked [facility] if they are able to accept TPN. Awaiting response from [facility]. ROAD MENDER faxed referral to [facility] who does accept TPN. Patient does not qualify for LTAC and patients insurance does not recognize LTAC. -Holly Welch,BRYSON
--- NOTE | 2019-11-17 07:50 | NUR ---
PT RETURNED FROM CT VIA WHEELCHAIR. CONDITION STABLE. NO COMPLAINTS AT THIS TIME. WILL CONTINUE TO ASSESS. TAYLER CEBALLOS
[2019-11-17 08:00] VITALS: BP 118/68
--- NOTE | 2019-11-17 08:00 | NUR ---
VITALS STABLE. JASMIN. A&OX3. HEART SOUNDS NORMAL. RHONCHI THROUGHOUT. YFO998% 10L. ACTIVE BSX4. NON DISTENDED, TENDER IN RIGHT LOWER QUAD. PT C/O 10/10 ACHING PAIN IN ABD. SKIN TURGUR NON TENTING. PPP. SKIN WARM AND DRY. JAUNDICE. DRESSING ON RIGHT LOWER QUAD PEG REMOVAL DRY AND INTACT. R SUBCLAVIAN MEDIPORT PATENT. DRESSING DRY AND INTACT. NO REDNESS OR SWELLING AT THIS TIME. WILL CONTINUE TO ASSESS. JASON CEBALLOSCC
--- NOTE | 2019-11-17 08:07 | NUR ---
PT C/O 10/10 ACHING ABD PAIN AT PEG TUBE REMOVAL SITE. 2MG MORPHINE IV PUSH BY GREGORIA DIEZ RN. WILL CONTINUE TO ASSESS. JASON CEBALLOSCC
--- NOTE | 2019-11-17 08:35 | NUR ---
MORPHINE EFFECTIVE. NO COMPLAINTS AT THIS TIME. WILL CONTINUE TO ASSESS, ELIZABETH BREEN [facility]
--- NOTE | 2019-11-17 09:00 | NUR ---
Teaching Assistant in to see patient. Discussed short term SNF and both patient and daughter refuse. She remains agreeable to continue her home health care services with [facility]. Awaiting tube placement. When medically stable she will be discharged to home with the resumption of her [facility] services.
--- NOTE | 2019-11-17 10:45 | NUR ---
SPEECH PATHOLOGY Orders for swallowing evaluation received as well as cancellation request. Clinician consulted with patient's nurse to clarify orders and nurse reported that orders were cancelled due to patient's condition. This dept. will remain available should future needs arise. Thank you for this referral. MIKALA GALLEGOS [facility]-OPEN SOAPER TENDER
--- NOTE | 2019-11-17 11:53 | NUR ---
PT C/O 10/10 ACHING PAIN IN LOWER ABD. IV PUSH 2MG MORPHINE. GREGORIA DIEZ RN. WILL CONTINUE TO ASSESS, ELIZABETH GOMEZCC
--- NOTE | 2019-11-17 11:54 | NUR ---
WAITER/WAITRESS HEAD received message from [facility], they are unable to accept the patient. -BRYSON Stringer
[2019-11-17 12:00] VITALS: BP 118/66
--- NOTE | 2019-11-17 12:35 | NUR ---
MORPHINE EFFECTIVE. PT HAS NO COMPLAINTS OF PAIN AT THIS TIME. JASON CEBALLOSCC
--- NOTE | 2019-11-17 12:37 | NUR ---
SLEEP MANAGER faxed resumption order to [facility]. -BRYSON Stringer
--- NOTE | 2019-11-17 12:42 | NUR ---
PER DR. KING, PATIENT FOR PLACEMENT OF NASODUODENAL TUBE, PER SURGERY STAFF, THIS DEVICE WILL BE AVAILABLE FOR THE PATIENT THIS FRIDAY. DR. ALBERTO NOTIFIED OF THIS.
--- NOTE | 2019-11-17 15:33 | NUR ---
MEDICATED WITH PRN IV MORPHINE FOR ABDOMINAL PEG REMOVAL SITE PAIN.
[2019-11-17 16:00] VITALS: BP 110/78
--- NOTE | 2019-11-17 19:51 | NUR ---
NOTIFIED DR MARTINEZ THAT ON OUR SIDE IN "ORDERS" UNDER "CODE STATUS" THE PATIENT'S CODE SAYS FULL CODE STILL. PATIENT WAS CHANGED TO A DNR-CC. PAPERS ARE IN FILE WITH DOCTOR'S SIGNATURE. DR MARTINEZ STATED THAT HIS END IS SHOWING THAT THE NEW ORDER SAYS DNR-CC. STILL NOT SHOWING UP FOR ME. WILL PASS ALONG.
[2019-11-17 20:00] VITALS: BP 104/70
--- NOTE | 2019-11-17 20:30 | NUR ---
NEW CODE STATUS ORDER ENTERED TO CORRELATE THE CORRECT CODE STATUS. DNR-CC. PAPERS FOR CODE STATUS ARE SIGNED BY A DOCTOR AND IN THE PATIENT'S PAPER FILE.
--- NOTE | 2019-11-17 22:39 | NUR ---
MORPHINE GIVEN PER PATIENT REQUEST FOR COMPLAINTS OF PAIN IN ABDOMEN. PAIN RATED 7/10. WILL ASSESS EFFECTIVENESS.
[2019-11-18] VITALS: BP 107/71
--- NOTE | 2019-11-18 00:21 | NUR ---
PATIENT STATED MORPHINE WAS EFFECTIVE.
--- NOTE | 2019-11-18 01:54 | NUR ---
MORPHINE GIVEN PER PATIENT REQUEST FOR COMPLAINTS OF PAIN ON HER ABDOMEN RATED 6/10. WILL ASSESS EFFECTIVENESS.
--- NOTE | 2019-11-18 02:02 | NUR ---
Patient resting quietly with no c/o discomfort. Respirations easy and regular. No overt distress. RACHELE DENIS
--- NOTE | 2019-11-18 06:20 | NUR ---
MORPHINE GIVEN PER PATIENT REQUEST FOR COMPLAINTS OF PAIN RATED 9/10. . WILL ASSESS EFFECTIVENESS.
[2019-11-18 06:47] LABS: BUN 29 mg/dl (7-24); CHLORIDE 107 mmol/L (98-107); CREATININE 1.11 mg/dL (0.55-1.02); PHOSPHOROUS 3.5 mg/dL (2.5-4.9); POTASSIUM 4.4 mmol/L (3.5-5.1); SODIUM 136 mmol/L (136-145)
--- NOTE | 2019-11-18 06:50 | NUR ---
PATIENT'S DRESSING ON ABDOMEN CHANGED PER PATIENT REQUEST. PURULENT DRAINAGE NOTED. DRESSING PER DR ORDERS APPLIED. PAIN TO TOUCH. PATIENT TOLERATED WELL.
--- NOTE | 2019-11-18 07:00 | NUR ---
PATIENT STATED THE MORPHINE WAS NOT WORKING AND WANTS ANOTHER DOSE. PATIENT CURRENTLY CRYING STATING SHE HAS WAITED TOO LONG FOR PAIN MEDICATIONS. PATIENT CURRENTLY YELLING AT ME STATING SHE NEEDS ANOTHER DOSE OF MORPHINE FOR ABDOMINAL PAIN. I TOLD THE PATIENT THAT I WOULD NOTIFY THE DOCTOR. NOTIFIED DR ALBERTO, DR ALBERTO REQUESTED PATIENT'S BLOOD PRESSURE WHICH WAS 104/78 WITH A HEART RATE OF 69. DR ALBERTO ORDERED A ONE TIME DOSE OF MORPHINE 1MG.
--- NOTE | 2019-11-18 07:05 | NUR ---
ARRIVED ON SHIFT, INTRODUCED TO PATIENT, WHITE BOARD UPDATED. PATIENT C/O PAIN IN ABD, ADVISED NEXT DOSE OF MORPHINE DUE IN TWO HOURS.
--- NOTE | 2019-11-18 07:59 | NUR ---
NEDICATED WITH MORPHINE 1 MG NOW DOSE FOR NON RELIEVED ABDOMINAL DISCOMFORT.
[2019-11-18 08:00] VITALS: BP 108/69
--- NOTE | 2019-11-18 08:46 | NUR ---
Shift chart check completed.
--- NOTE | 2019-11-18 08:53 | NUR ---
Spoke with patient regaring follow up outpatient she stated she will follow up with Dr. Peña.
--- NOTE | 2019-11-18 08:59 | NUR ---
PATIENT REPORTS MODERATED RELIEF FROM 1 X ECTRA DOSE OF MORPHINE RATES PAIN 6/10.
--- NOTE | 2019-11-18 09:25 | NUR ---
PATIENT C/O PAIN 10/10 IN HER ABDOMIN, DESCRIBES SHARP PAIN, MEDICATED WITH MORPHINE ORDER.
--- NOTE | 2019-11-18 10:25 | NUR ---
MINIMAL RELIEF FROM MORPHINE GIVE X 1 HOUR AGO, DR. ALBERTO NOTIFIED.
--- NOTE | 2019-11-18 10:30 | NUR ---
Palliative care nurse practitioner, Lyudmila, to follow up with patient today. Llama Farmer in to see patient. When medically stable she will be discharged to home with the resumption of her [facility] services. Daughter at bedside.
[2019-11-18] MEDS ORDERED: OXYCODONE HCL10 M1 PO (11:09)
--- NOTE | 2019-11-18 11:59 | NUR ---
PATIENT C/O ABDOMINAL PAIN MEDICATED WITH DILAUDID ORDERED PRN.
[2019-11-18 12:00] VITALS: BP 114/84
--- NOTE | 2019-11-18 12:27 | NUR ---
Nutritional Support Services Note: Pt to receive J-tube on 11/19/19. Dx of pranay, peg tube malfunction,htn,CA,Copd,asthma,bipolar. Recommend pt to receive Vital High Protein at home. Recommend Jtube to run at 65cc/hr. Will provide pt with 1560cc/1560cal daily. Recommend Omolite at 65cc/hr while a patient here as Vital High Protein is not part of our formulary. Will follow as needed. Pt requires 2500cc of fluid daily- Pt requires an additional 1000cc daily. Will follow as needed. Lorene Roper Rdn Ld
--- NOTE | 2019-11-18 12:57 | NUR ---
PATIENT REPORTS MODERATE RELIEF FROM DILAUDID GIVEN X 1 HOUR AGO, PAIN 4/10
--- NOTE | 2019-11-18 13:34 | NUR ---
Faxed Rocephin 2 GM IV daily for 2 weeks prescription to [facility]. Awaiting response. Notified hospitalist nurse director.
--- NOTE | 2019-11-18 14:57 | NUR ---
Faxed prescription for Vital High Protein 1560 cc/day (6.5 cans) @ 65 cc/hr with 1000 cc free water flush per day to [facility]. Awaiting response.
[2019-11-18 16:00] VITALS: BP 121/80
--- NOTE | 2019-11-18 16:09 | NUR ---
MEDICATED WITH DILAUDID ORDERED PRN FOR ABDONINAL PAIN 07/06.
--- NOTE | 2019-11-18 17:09 | NUR ---
PATIENT REPORTS MOSERATE RELIEF FROM DILAUDID GIVEN X 1 HOUR AGO.
[2019-11-18 20:00] VITALS: BP 129/88
--- NOTE | 2019-11-18 22:30 | NUR ---
UPON ENTERING PATIENTS ROOM. PATIENT IN RESPIRATORY DISTRESS. PATIENT SITTING ON EDGE OF BED USING ACCESSORY MUSCLES. TRIPOD BREATHING. PATIENT DOES NOT HAVE TRACH MASK ON AND PATIENT TRACH TUBE IS NOT IN PLACE. PATIENTS PULSE OX 79%, HR 160S-170S. TRACH MASK PLACED OVER STOMA RESPIRATORY CALLED TO FLOOR. DR. REESE IN ROOM
[2019-11-19] VITALS (10 sets, daily range): BP systolic 88–114; BP diastolic 48–83
--- NOTE | 2019-11-19 03:12 | NUR ---
PATIENT FOUND WITH TRACH MASK OFF LAYING ON THE FLOOR. PATIENTS PULSE OX IN THE LOW 80S. RESPIRATORY TO FLOOR. PUSHED TRACH TUBE BACK INTO STOMA AND TRACH MASK PLACED OVER TOP. PATIENT ENCOURAGED TO LEAVE TRACH MASK ON. PATIENT HR REMAINS 120S-130S, BP 80S/60S. PULSE OX WITH 10L TRACHMASK 91% NOTIFIED DR. MARTINEZ. NO NEW ORDERS RECEIVED. WILL CONTINUE TO MONITOR.
--- NOTE | 2019-11-19 05:30 | NUR ---
PATIENTS DRESSING SATRUATED. NEW DRESSING PLACED ON ABDOMEN.
--- NOTE | 2019-11-19 07:30 | NUR ---
ARRIVED ON SHIFT, PATIENT AND HER DAUGHTER DID NOT AWAKEN WHEN I WENT IN TO INTRODUCE SELF, WHITE BOARD. UPDATED.
--- NOTE | 2019-11-19 09:04 | NUR ---
Shift chart check completed.
--- NOTE | 2019-11-19 11:20 | NUR ---
Spoke to Mireya at [employer]. The rocephin will be good to be delivered tomorrow to patient's home. The tube feeding they received today but it is leaking. She is going to check to see when the tube feeding is going to be redelivered. There should be no cost to the patient as this will be here main source of nutrition. Hospitalist nurse director notified.
--- NOTE | 2019-11-19 14:30 | NUR ---
Received call from Mireya at [facility] regarding reordering feeding to be delivered on Friday. The rocephin will be start of care on Friday.
--- NOTE | 2019-11-19 20:15 | NUR ---
PATIENT PICKING AND PULLING AT NG TUBE. EXPLAINED TO THE PATIENT SHE AGREED TO HAVE PLACED. PATIENT REQUETED SOMETHING FOR PAIN, SO DILAUDID AND ATIVAN GIVEN. WILL MONITOR AND REASSESS.
--- NOTE | 2019-11-19 22:47 | NUR ---
PATIENT RESTING, NO SIGNS OF DISTRESS, PATIENT LEAVING GT TUBE ALONE AT THIS TIME. DILAUDID AND ATIVAN EFFECTIVE.
--- NOTE | 2019-11-19 23:10 | NUR ---
WAS NOTIFIED BY PATIENTS DAUGHTER, THAT THERE WAS SOMETHING COMING OUT OF THE HOLE WHERE THE PEG TUBE WAS, NOTIFED RESIDENTS. THEY LOOKED, AT IT AND WANTED DR. KING NOTIFIED. SPOKE WITH DR. KING, HE STATED TO PUSH IT BACK IN AND SUCTION THE SECRETIONS OUT.
[2019-11-20] VITALS: BP 92/40; BP 92/54
--- NOTE | 2019-11-20 05:06 | NUR ---
TUBE FEED STILL NOT BEING GIVEN DUE TO NG TUBE COMING OUT OF PATIENTS PEG TUBE SITE . PATIENT HAVING C/O ABD PAIN AND WAS GIVEN DILAUDID AT THIS TIME. PEG TUBE SITE IS CURRENTLY COVERED WITH ABD PADS AND SECURED AT THIS TIME.
[2019-11-20 06:52] LABS: HEMATOCRIT 28.6 % (37.0-47.0); HEMOGLOBIN 8.9 g/dl (12.0-16.0); MEAN CELL VOLUME 92.3 fl (81.0-99.0); MEAN CORPUSCULAR HGB 28.7 pg (27.0-31.0); MEAN CORPUSCULAR HGB CONC 31.1 g/dl (33.0-37.0); MEAN PLATELET VOLUME 12.9 fl (9.6-12.3); NUCLEATED RED BLOOD CELL 0.1 10*3/uL (0.0-0.0); NUCLEATED RED BLOOD CELL 0.5 % (0.0-0.0); PLATELET COUNT AUTOMATED 161 10*3/uL (130-400); RED CELL DISTRI WIDTH 20.8 % (0-14.5); WHITE BLOOD COUNT 27.5 10*3/uL (4.8-10.8)
[2019-11-20 08:00] VITALS: BP 101/76
[2019-11-20 08:09] LABS: PLATELET SUFFICIENCY NORMAL (NORMAL); POLYCHROMASIA SLIGHT; TOTAL CELLS COUNTED 100 #CELLS
[2019-11-20 08:17] LABS: CREATININE 1.31 mg/dL (0.55-1.02); PHOSPHOROUS 4.1 mg/dL (2.5-4.9); POTASSIUM 4.5 mmol/L (3.5-5.1)
--- NOTE | 2019-11-20 10:12 | NUR ---
MEDICATED WITH PRN DILAUDID PER ORDER AND REQUEST FOR ABDOMINAL PAIN.
--- NOTE | 2019-11-20 10:26 | NUR ---
DR. CHANDLER AWARE THERE IS BLOOD IN URINE NAD PULLED NGT OUT. DR. KING ALSO AWARE.
--- NOTE | 2019-11-20 11:14 | NUR ---
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 CLIENT IS VERY SICK AND SHE HAS BEEN FOR SEVERAL YEARS. SHE HAS BEEN THROUGH A LOT OF TREATMENT AND SHE KNOWS THAT SHE IS VERY ILL. CLIENT TOLD NE TODAY SHE WANTS TO GO HOME, BUT APPARENTLY THERE ARE ISSUES WITH HER FEEDING, SHE DOES NOT WANT HOSPICE. I TRIED TO TALK WTIH CLIENT ABOUT THIS, SHE IS UNSURE AND DOESNT LIKE THE IDEA OF IT PERHAPS SHE SEES IT THE END. HER DAUGHTER IS KNOWN TO ME WELL AND WE ALSO TALKED, SHE SAID THAT SHE DOESNT KNOW WHAT TO DO BECAUSE SHE CANT GO HOME. PROVIDED SUPPORT.
[2019-11-20 12:00] VITALS: BP 157/87
--- NOTE | 2019-11-20 13:01 | NUR ---
MEDICATED WITH IV ATIVAN PER REQUEST. PATIENT AND DAUGHTER FIGHTING. PATIENT TRYING TO LEAVE.
[2019-11-20 13:41] LABS: BILIRUBIN 1+ (NEGATIVE); CLARITY CLOUDY (CLEAR); COLOR YELLOW (YELLOW); GLUCOSE NEGATIVE (NEGATIVE); KETONE NEGATIVE (NEGATIVE)
[2019-11-20 13:42] LABS: BACTERIA 1+; BLOOD 3+ (NEGATIVE); EPITHELIAL CELLS 16-20; LEUKO ESTERASE NEGATIVE (NEGATIVE); NITRITE NEGATIVE (NEGATIVE); RBC TNTC rbc/hpf (0-2); SPECIFIC GRAVITY 1.015 (1.005-1.030); UROBILINOGEN 0.2 E.U./dl (0.2-1.0)
--- NOTE | 2019-11-20 14:39 | NUR ---
MARLEY EARLIER HELPED.
[2019-11-20 16:00] VITALS: BP 176/82
--- NOTE | 2019-11-20 17:00 | NUR ---
PATIENT PULLED TRACH TUBE OUT AND DAUGHTER REFUSES TO GIVE ANOTHER ONE BECAUSE SHE PULLED ONE OUT A COUPLE DAYS AGO AND THEY COST 300 DOLLARS. RESPIRATORY IN ROOM WELL MUTIPLE STAFF. PATIENT O2 SAT MAINTAINS HIGH 90'S, RT TO SUCTION AND CHECK Q2H. DAUGHTER YELLING WE ARE NOT CAPABLE OF CARING FOR HER MOTHER AND WANTS HER TRANSFERED. PATIENT HAS PULLED OUT TRACH TUBE AND NGT WHILE DAUGHTER IS AT BEDSIDE. PATIENT WANTING HER MOM MENTAL COMPETENCY CHECKED. DR. AG NOTIFIED.
--- NOTE | 2019-11-20 18:06 | NUR ---
DR. AG HAS SPOKEN TO DAUGHTER WHO IS NOW QUITE CALM AND DECLINES TRANSFER NOW. DAUGHTER WANTS MAXI BAY TO COME BACK.
--- NOTE | 2019-11-20 18:43 | NUR ---
SPOKE TO MAXI BAY PER DAUGHTER REQUEST. MAXI STATED SHE CANNOT DEEM PATIENT COMPETENT OR NOT. MAXI STATED SHE WOULD BE HAPPY TO COME BACK TOMORROW AND SPEAK TO PATIENT AGAIN.
--- NOTE | 2019-11-20 19:40 | NUR ---
PATIENT AGGITATED AND REATLESS MEDICATED WITH 1MG OF ATIVAN IV ORDERED.
[2019-11-20 20:00] VITALS: BP 94/69
--- NOTE | 2019-11-20 20:40 | NUR ---
PATIENT REMAINS AGGITATED, DESPITE BEING GIVE 1MG OF ATIVAN, PATIENT C/O PAIN, UNABLE TO GIVE DILAUDID DUE TO LOW BP.
[2019-11-21] VITALS: BP 91/55
--- NOTE | 2019-11-21 00:06 | NUR ---
CALL PLACED TO DR. ALBERTO ADVISED THAT PATIENT WANTS HODPICE SERVICES, SHE INSTRUCTED ME TO CALL HOSPICE, CALL PLACED TO [facility] TO ADVISE OF REFERAL.
--- NOTE | 2019-11-21 00:45 | NUR ---
REPRESENITIVE HERE FROM [facility], PATIENT IS NOW REFUSING HOSPICE IN HOSPITAL, AND IS DEMANDING TO GO HOME, ADVISED PATIENT THAT HER DAUGHTER WAS UNABLE TO CARE FOR HER IN HER CURRENT STATE. PATIENT ASKING FOR A DRINK ADVISED I WAS UNABLE TO GIVE HER ANY FLUIDS, SHE CONTINUAL IS PULLING OFF HER TRACH MASK. SHE IS MOTTLED FROM FEET TO MID THIGH. ABDOMINAL DRESSING IS INTACT. CONTINUES TO RATE PAIN 8/10, PATIENTS COUSIN IS AT BEDSIDE. DR ALBERTO ADVISED OF PATIENTS REFUSAL OF HOSPICE CARE, WHILE IN HOSPITAL.
[2019-11-21 04:00] VITALS: BP 93/77
[2019-11-21 06:05] LABS: HEMOGLOBIN 8.9 g/dl (12.0-16.0); MEAN PLATELET VOLUME 13.4 fl (9.6-12.3); NUCLEATED RED BLOOD CELL 0.1 10*3/uL (0.0-0.0); NUCLEATED RED BLOOD CELL 0.2 % (0.0-0.0)
[2019-11-21 06:07] LABS: BASO % 0.2 % (0.0-1.0); EOS # 0.5 10*3/uL (0.0-0.4); HEMATOCRIT 28.2 % (37.0-47.0); LYMPH # 0.4 10*3/uL (1.3-4.4); LYMPH % 1.8 % (27.0-41.0); MEAN CELL VOLUME 90.7 fl (81.0-99.0); MEAN CORPUSCULAR HGB 28.6 pg (27.0-31.0); MEAN CORPUSCULAR HGB CONC 31.6 g/dl (33.0-37.0); MONO # 0.8 10*3/uL (0.1-1.0); MONO % 3.3 % (3.0-9.0); NEUT # 20.5 10*3/uL (2.3-7.9); NEUT % 88.1 % (47.0-73.0); PLATELET COUNT AUTOMATED 149 10*3/uL (130-400); RED BLOOD COUNT 3.11 10*6/uL (4.10-5.10); RED CELL DISTRI WIDTH 20.2 % (0-14.5); WHITE BLOOD COUNT 23.3 10*3/uL (4.8-10.8)
[2019-11-21 06:10] LABS: CREATININE 1.3 mg/dL (0.55-1.02)
[2019-11-21 08:00] VITALS: BP 126/83
[2019-11-21 08:00] LABS: PLATELET SUFFICIENCY NORMAL (NORMAL); POLYCHROMASIA SLIGHT; SCHISTOCYTES FEW; SPHEROCYTES FEW; TOTAL CELLS COUNTED 100 #CELLS
--- NOTE | 2019-11-21 09:17 | NUR ---
Employee Placement Specialist in to see patient. Discussed hospice and patient refuses. Discussed discharge planning with daughter. Patient states she wants to go to [facility]. She does not want to go home with hospice. She does not want to go to a hospice house. Nurse aware.
--- NOTE | 2019-11-21 09:20 | NUR ---
Spoke to Shaina Leonard who say the patient yesterday and will come to see the patient again later today. Daughter aware.
--- NOTE | 2019-11-21 09:40 | NUR ---
I was called to the patients room per request of daughter. Patient sat us both down to let us know of her decision. Patient stated "I want to go home on hospice."
--- NOTE | 2019-11-21 09:55 | NUR ---
Face to face encounter with and notified her that patient made a choice to go home on hospice. See new orders.
--- NOTE | 2019-11-21 09:57 | NUR ---
Received call from Dr. Jeffrey. Patient and daughter are willing to accept hospice at home at this time. The daughter states she will do it as long as her cousin can help. When provided with a list of agencies they chose [facility]. Referral faxed to [facility] for hospice at home.
--- NOTE | 2019-11-21 11:07 | NUR ---
Spoke to [facility] regarding referral. [facility] nurse will call inpatient nurse.
[2019-11-21 12:00] VITALS: BP 108/71
--- NOTE | 2019-11-21 12:08 | NUR ---
met with client per request of doctor and to follow up from yesterday visit. client's daughter, susi, was requesting a competency evaluation. i spoke with daughter and the client today. the daughter tells me that the reason she was asking about the competency is because client keeps saying she wants hospice and then refuses to sign for it. i explained to that daughter that her mom is on a lot of medications she probably has some confusion from her lack of nutrition, etc and that she is very ill. the daughter has some issues with impulse control and becomes easily agitated. i asked the client what she wants to do and she tells me she wants to go home. i explained to her that she would need to have help and support at home because her daughter does not feel she can do it. i explained that is why hospice can help, i asked her if she wants hospice and she tells me yes. she knows who i am, she knows where she is and she knows why she is here. i talked with the daughter at length and she said the only reason she wants to know if she is competent is because then she herself could sign for her to have hospice. i explained to her that becoming agitated with the staff here is not the best way to help her mom. we talked about how she needs to stay calm for her mom. we talked about the house and what she is needs to do for the future, she has to rehome her dogs. she is also struggling and does not show her emotions appropriately. provided support for them. i will follow and susi said that maybe if myself or her case picker afsaneh were here when hospice comes then client might be more willing to sign.
--- NOTE | 2019-11-21 13:04 | NUR ---
Per request of I called [facility] to see when nurse will be in to evaluate patient. Message was left, awaiting response.
--- NOTE | 2019-11-21 14:45 | NUR ---
PHYSICAL THERAPY attempted to see patient today for referral for evaluation however per patient family and nursing patient is awaiting hospice nurse to come and will be discharging home with hospice and therefore no PT services wanted or indicated at this time per family. thank you for referral edwardo kessler PT
[2019-11-21 16:00] VITALS: BP 98/66
--- NOTE | 2019-11-21 18:18 | NUR ---
Discharge instructions reviewed with patient/family. Patient receptive and verbalizes understanding. Follow-up care arranged. Written instructions given to patient/family. Patient was discharged to inpatient hospice with [facility]. MORENA LEDEZMA
[2019-11-22] MEDS ORDERED: MORPHINE S100 MG/5 M SL (14:12)
[2019-11-22] MEDS ORDERED: Duragesic 25 M25 MCG T (14:12)
[2019-11-22] MEDS ORDERED: LORAZEPAM1 MG SL (14:12)
[2019-11-22] MEDS ORDERED: Duragesic 100100 MCG T (14:12)
[2019-11-22] MEDS ORDERED: Haldol Concen2 MG/ML PO (14:12)
[2019-11-22] MEDS ORDERED: ZOFRAN4 MG PO (14:13)
== END 2019-11-21 18:43 | disposition hospice, home (50) | DRG 720 ==
LOC: ED 14:40 → 5E 21:27 → EDHOLD 21:27 → 4E 21:54 → 5E 22:25
PROVIDERS: Family Medicine; Hospitalist; Internal Medicine; Nurse Practitioner Family; Student in an Organized Health Care Education/Training Program; ADMIT Internal Medicine
PROC: 0DP68UZ Removal of Feeding Device from Stomach, Via Natural or Artificial Opening Endoscopic (ICD-10-PCS; principal; 2019-11-13)
PROC: 30233N1 Transfusion of Nonautologous Red Blood Cells into Peripheral Vein, Percutaneous Approach (ICD-10-PCS; 2019-11-16)
PROC: 0D728ZZ Dilation of Middle Esophagus, Via Natural or Artificial Opening Endoscopic (ICD-10-PCS; 2019-11-19)
PROC: 0DH63UZ Insertion of Feeding Device into Stomach, Percutaneous Approach (ICD-10-PCS; 2019-11-19)
DX: A41.9 Sepsis, unspecified organism (principal); L03.311 Cellulitis of abdominal wall; N17.0 Acute kidney failure with tubular necrosis; D64.9 Anemia, unspecified; R74.0 Nonspecific elevation of levels of transaminase and lactic acid dehydrogenase [LDH]; R74.8 Abnormal levels of other serum enzymes; N13.30 Unspecified hydronephrosis; J84.9 Interstitial pulmonary disease, unspecified; E87.1 Hypo-osmolality and hyponatremia; E43 Unspecified severe protein-calorie malnutrition; M89.8X5 Other specified disorders of bone, thigh; I10 Essential (primary) hypertension; E78.00 Pure hypercholesterolemia, unspecified; F31.9 Bipolar disorder, unspecified; F41.9 Anxiety disorder, unspecified; G47.33 Obstructive sleep apnea (adult) (pediatric); G89.29 Other chronic pain; E03.9 Hypothyroidism, unspecified; E55.9 Vitamin D deficiency, unspecified; G25.81 Restless legs syndrome; J44.9 Chronic obstructive pulmonary disease, unspecified; K21.9 Gastro-esophageal reflux disease without esophagitis; D47.3 Essential (hemorrhagic) thrombocythemia; K94.23 Gastrostomy malfunction; C14.0 Malignant neoplasm of pharynx, unspecified; E66.01 Morbid (severe) obesity due to excess calories; M19.90 Unspecified osteoarthritis, unspecified site; I51.7 Cardiomegaly; E80.6 Other disorders of bilirubin metabolism; E11.65 Type 2 diabetes mellitus with hyperglycemia; R65.20 Severe sepsis without septic shock; M06.9 Rheumatoid arthritis, unspecified; K94.22 Gastrostomy infection; Z88.5 Allergy status to narcotic agent; Z88.8 Allergy status to other drugs, medicaments and biological substances; Z88.1 Allergy status to other antibiotic agents; Z91.041 Radiographic dye allergy status; Z90.49 Acquired absence of other specified parts of digestive tract; Z85.05 Personal history of malignant neoplasm of liver; Z85.118 Personal history of other malignant neoplasm of bronchus and lung; Z68.41 Body mass index [BMI] 40.0-44.9, adult; Z98.51 Tubal ligation status; Z82.49 Family history of ischemic heart disease and other diseases of the circulatory system; Z83.3 Family history of diabetes mellitus; Z79.82 Long term (current) use of aspirin

== ENCOUNTER 2019-11-21 18:47 | Inpatient (IN) | payer OTHER ==
[~2019-11-21] VITALS: Ht 154.9 cm; Wt 70.3 kg
--- NOTE | 2019-11-21 02:56 | NUR ---
PATIENT C/O PAIN IN ABD. 08/05 MEDICATED WITH 20MG SL MORPHINE, PER DAUGHTER PATIENT IDS TO GO HOME ON HOSPICE TOMMORROW.
[~2019-11-21 18:47] MED LIST changes: +OXYCODONE HCL10 M1 PO; +VANCO 1.51.5 GM/250 IV
--- NOTE | 2019-11-21 18:58 | NUR ---
Verified hospice recommendations with Dr. Jeffrey. Relayed to pm nurse in report.
--- NOTE | 2019-11-21 19:30 | NUR ---
Time: 1929 A 59 year old FEMALE admitted to 5E ROOM 532, under services of [facility]. DARVIN ELIZABETH
[2019-11-21 20:00] VITALS: BP 82/43
--- NOTE | 2019-11-21 20:46 | NUR ---
PATIENT RESTLESS, PULLING AT TRACH MASK, CRUSHED LORAZEPAM, MIXED WITH 1CC WATER GAVE SUBLINGUAL PATIENT TOLERATED WELL.
--- NOTE | 2019-11-21 21:24 | NUR ---
GOOD EFFECT FROM MORPHINE AND LORAZEPAM, EVIDENCED BY PATIENT RESTING WITH EYES CLOSED IN NO APPARENT DISTRESS.
--- NOTE | 2019-11-22 01:29 | NUR ---
Patient lying on left side, noisy, moist respirations, O2 via [place] trach mask, bed in low position, siderails up x 3, whhel locks on, daughter at bedside, call light within reach. received call from Nelsy JAMIL with [facility], update given. DARVIN ELIZABETH
[2019-11-22 04:00] VITALS: BP 96/72
--- NOTE | 2019-11-22 04:14 | NUR ---
WENT IN ROOM TO CHECK ON PATIENT SHE WAS SITTINGUP IN BED, WHEN ASKED IF SHE WAS HAVING PAIN, PATIENT HELD UP 10 FINGERS, I ASKED HER IF PAIN WAS A 10/10 SHE NODDED HER HEAD, MEDICATED WITH 20MG MORPHINE SL ORDERED.
--- NOTE | 2019-11-22 04:34 | NUR ---
PATIENT ATTEMPTING TO CLIMB OUT OF BED, PULLED OF GOWN AND TRACH MASK, MEDICATED WITH LORAZEPAM SL PER ORDER.
--- NOTE | 2019-11-22 05:14 | NUR ---
GOOD RELIEF FROM MORPHINE AND LORAZEPAM GIVEN, EVIDENCED BY PATIENT RESTING WITH EYES CLOSED, NO LONGER PULLING ON TRACH MASK OR TRYING TO CLIMB OUT OF BED.
[2019-11-22 08:00] VITALS: BP 91/61
--- NOTE | 2019-11-22 08:00 | NUR ---
Received call from Lorena at [facility] regarding patient is current with their services. Informed Lorena patient was inpatient hospice.
--- NOTE | 2019-11-22 08:05 | NUR ---
MORPHINE 20 MG AND ATIVAN 1 MG GIVEN FOR ANXIETY AND PAIN,PER PT REQUEST. PT CURRENTLY CONFUSED AND SITTING UP IN BED NAKED SCRATHING FACE ANDF EAR. EAR BLEEDING. PT HAS 1 IN CUT FROM DIGGING AT HER SKIN WITH HER NAILS. CLEANED PT UP APPLIED O2 AND PUT GOWN BACK ON PT. DAUGHTER REFUSES PHOTOS D/T CODE STATUS AND HOSPUICE. DAUGHTER AT BEDSIDE. VOICES NO OTHER NEEDS. CALL LIGHT IN REACH.
--- NOTE | 2019-11-22 08:46 | NUR ---
Occupational therapy orders received and chart reviewed. Per chart review, [facility] Will discharge OT orders at this time. Thank you. Deepa Berg, OTR/L
--- NOTE | 2019-11-22 09:00 | NUR ---
NOTIFIED DR ALBERTO PT WAS DIGGING HER SKIN CREATING WOUNDS TO LEFT EAR,BREASTBONE, LUQ WOUND AND STICKING FINGERS INTO LARYNGECTOMY SITE AND HAS PULLED INNER CANNULA AND IS STILL DIGGING AT SITE. ANDREA RECIEVED FOR MITTS FOR PT BUT NO MITTS ARE AVAILABLE. NOTIFIED DR BASS AND ORDER RECIEVED FOR BENEDRYL 25 MG NOW.
--- NOTE | 2019-11-22 10:18 | NUR ---
Spoke to Mireya at [employer] regarding patient being inpatient hospice. Home feedings and IV antibiotics are no longer needed.
--- NOTE | 2019-11-22 10:40 | NUR ---
LOULOU KING FROM [facility] ROUNDED AND S3EEN PT AND SPOKE WITH FAMILY. PER FAMILY'S REQUEST, PT TO BE D/C TO HOME PER HER WISHERS.CASE MANAGEMENT FROM [facility] WILL BE IN TO ARRANGE.
--- NOTE | 2019-11-22 12:32 | NUR ---
MORPHINE 20 MG GIVEN FOR C/O PAIN, PER PT REQUEST.CASE MGMT AND FORENSIC PATHOLOGIST AT BEDSIDE.
--- NOTE | 2019-11-22 13:12 | NUR ---
NOTIFIED DR AMAYA THAT AIRCRAFT CABIN CLEANER HAD ARRANGED TRANSPORT FOR PT TO BE PICKED UP AT 5PM [facility]ROUGH [facility] AND SENIOR CREDIT ANALYST WILL DO TUCK IN VISIT THIS EVENING.AWAITING D/C ORDERS.
[2019-11-22] MEDS ORDERED: Duragesic 100100 MCG T (14:12)
[2019-11-22] MEDS ORDERED: LORAZEPAM1 MG SL (14:12)
[2019-11-22] MEDS ORDERED: Haldol Concen2 MG/ML PO (14:12)
[2019-11-22] MEDS ORDERED: MORPHINE S100 MG/5 M SL (14:12)
[2019-11-22] MEDS ORDERED: Duragesic 25 M25 MCG T (14:12)
[2019-11-22] MEDS ORDERED: ZOFRAN4 MG PO (14:13)
--- NOTE | 2019-11-22 17:22 | NUR ---
Discharge instructions reviewed with patient/family. Patient receptive and verbalizes understanding. Follow-up care arranged. Written instructions given to patient/family. ISABEL LARSON
== END 2019-11-22 17:22 | disposition hospice, home (50) | DRG 871 ==
LOC: 5E 18:47
PROVIDERS: ADMIT Internal Medicine
DX: A41.9 Sepsis, unspecified organism (principal); E43 Unspecified severe protein-calorie malnutrition; N17.0 Acute kidney failure with tubular necrosis; K83.1 Obstruction of bile duct; L03.311 Cellulitis of abdominal wall; E87.1 Hypo-osmolality and hyponatremia; N13.30 Unspecified hydronephrosis; J84.9 Interstitial pulmonary disease, unspecified; Z68.41 Body mass index [BMI] 40.0-44.9, adult; D64.9 Anemia, unspecified; R74.0 Nonspecific elevation of levels of transaminase and lactic acid dehydrogenase [LDH]; Z66 Do not resuscitate; Z51.5 Encounter for palliative care; F41.9 Anxiety disorder, unspecified; G89.29 Other chronic pain; J44.9 Chronic obstructive pulmonary disease, unspecified; I10 Essential (primary) hypertension; K21.9 Gastro-esophageal reflux disease without esophagitis; E78.00 Pure hypercholesterolemia, unspecified; E03.9 Hypothyroidism, unspecified; F32.9 Major depressive disorder, single episode, unspecified; E66.01 Morbid (severe) obesity due to excess calories; G47.33 Obstructive sleep apnea (adult) (pediatric); M19.90 Unspecified osteoarthritis, unspecified site; M06.9 Rheumatoid arthritis, unspecified; G25.81 Restless legs syndrome; E11.9 Type 2 diabetes mellitus without complications; R74.8 Abnormal levels of other serum enzymes; D47.3 Essential (hemorrhagic) thrombocythemia; E83.39 Other disorders of phosphorus metabolism; M89.8X5 Other specified disorders of bone, thigh; Z92.21 Personal history of antineoplastic chemotherapy; Z90.49 Acquired absence of other specified parts of digestive tract; Z98.891 History of uterine scar from previous surgery; Z98.51 Tubal ligation status; Z87.891 Personal history of nicotine dependence; Z82.49 Family history of ischemic heart disease and other diseases of the circulatory system; Z83.3 Family history of diabetes mellitus; Z84.89 Family history of other specified conditions; Z88.8 Allergy status to other drugs, medicaments and biological substances; Z88.6 Allergy status to analgesic agent; Z88.1 Allergy status to other antibiotic agents; Z91.041 Radiographic dye allergy status